=== PATIENT | female | born 1945 | race Caucasian/White ===

== ENCOUNTER → 2018-07-04 10:16 | Outpatient (CLI) | payer MEDICARE, SELFPAY ==
[2018-07-04 11:29] LABS: Alanine Aminotransferase 23 IU/L (9-52); Albumin 4.5 g/dL (3.5-5.0); Albumin Globulin Ratio 1.4 (1.0-2.8); Alkaline Phosphatase 76 U/L (38-126); Aspartate Aminotransferase 26 IU/L (14-36); BUN Creatinine Ratio 13.8 (6-22); Bilirubin Total 0.8 mg/dL (0.2-1.3); Blood Urea Nitrogen 11 mg/dL (7-17); Calcium 9.1 mg/dL (8.4-10.2); Carbon Dioxide 25 mmol/L (22-32); Chloride 99 mmol/L (98-107); Cholesterol 181 mg/dL (140-199); Estimated Glomerular Filt Rate > 60.0 mL/min (>60); Globulin 3.2 g/dL (1.7-4.1); Glucose 100 mg/dL (80-110); HDL Cholesterol 59 mg/dL (40-60); HEMOLYSIS < 15 (0-50); LDL Cholesterol Calculated 105 mg/dL (<100); Potassium 4.9 mmol/L (3.4-5.1); Sodium 137 mmol/L (137-145); Total Protein 7.7 g/dL (6.3-8.2); Triglycerides 83 mg/dL (35-150)
[2018-07-04 11:52] LABS: Thyroid Stimulating Hormone 2.98 uIU/mL (0.47-4.68)
== END ==
PROVIDERS: Family Provider Internal Medicine; PCP Internal Medicine; Visit Provider Physician Assistant
DX: E03.9 Hypothyroidism, unspecified (principal)
CPT/HCPCS: 36415; 80053; 80061; 84443

== ENCOUNTER 2018-07-04 16:49 | Emergency (ER) | payer MEDICARE, SELFPAY ==
[2018-07-04 16:59] VITALS: BP 172/123; PULSE 147; RESP 15; TEMP 36.7; O2SAT 100
[2018-07-04] MEDS: SODIUM CHLORIDE 0.9% 1,000 ML 150 ML IV (17:00)
--- NOTE | 2018-07-04 17:10 | DI.RAD.S_ITS ---
PROCEDURE: XR CHEST 1V INDICATIONS: chest pain TECHNIQUE: One view of the chest was acquired. COMPARISON: None. FINDINGS: Surgical changes and devices: None. Lungs and pleura: No pleural effusions or pneumothorax. Lungs are clear. Mediastinum: Mediastinal contours appear normal. Heart size is normal. Bones and chest wall: No suspicious bony lesions. Overlying soft tissues appear unremarkable. IMPRESSION: Normal for age, source of current symptoms is not seen. Dictated by: Elver Sahu M.D. on 07/04/2018 at 18:00 Approved by: Elver Sahu M.D. on 07/04/2018 at 18:00
[2018-07-04 17:13] VITALS: BP 162/117; PULSE 148
[2018-07-04] MEDS: dilTIAZem 5 MG/ML SDV 10 MG IV ×2 (17:13→17:30)
[2018-07-04 17:30] LABS: Add Manual Diff / Slide Review NO; Basophils Percent Auto 0.9 % (0-2); Eosinophils Percent Auto 1.8 % (2-4); Hematocrit 41.2 % (36-46); Lymphocytes Percent Auto 29.4 % (25-40); Mean Corpuscular HGB Conc 34.1 % (30-36); Mean Corpuscular Hemoglobin 33.4 PG (26-34); Mean Corpuscular Volume 97.9 fL (80-100); Neutrophils Absolute Auto 4200 /uL (3000-5900); Neutrophils Percent Auto 60.9 % (50-75); Platelet Count 252 X10^3/uL (150-400); Red Blood Cell Count 4.21 X10^6/uL (4.0-5.2); Red Cell Distribution Width 12.1 % (11.6-14.8); White Blood Cell Count 6.9 X10^3/uL (4.5-11.0)
[2018-07-04 17:32] LABS: BUN Creatinine Ratio 15.7 (6-22); Blood Urea Nitrogen 11 mg/dL (7-17); Calcium 9.1 mg/dL (8.4-10.2); Carbon Dioxide 23 mmol/L (22-32); Chloride 101 mmol/L (98-107); Creatine Kinase 31 U/L (30-135); Estimated Glomerular Filt Rate > 60.0 mL/min (>60); Glucose 97 mg/dL (80-110); HEMOLYSIS 17 (0-50); Potassium 4.1 mmol/L (3.4-5.1); Sodium 136 mmol/L (137-145)
[2018-07-04 17:34] LABS: INR 1.1 (0.9-1.3); Prothrombin Time 11.9 SECONDS (10.1-12.7)
[2018-07-04 17:36] LABS: PTT Partial Thromboplastin Tim 29 SECONDS (26.4-36.2)
[2018-07-04 17:45] LABS: Troponin I < 0.012 ng/mL (0.01-0.034)
[2018-07-04 17:46] VITALS: BP 129/107; PULSE 107; RESP 15; O2SAT 99
--- NOTE | 2018-07-04 17:56 | ED.ARRPALP ---
HPI - Arrhythmia/Palpitations General Chief Complaint: Arrhythmia/Palpitations Stated Complaint: states in AFIB, sent by her physician Time Seen by Provider: 07/04/18 17:09 Source: patient Mode of arrival: ambulatory Limitations: no limitations History of Present Illness HPI narrative: Patient is a 73-year-old female who presents with heart palpitations. She has had 5 episodes in the last week. She does have a history of paroxysmal AFib in takes 81 mg aspirin daily. She says it has been regularly controlled until last week. She has not really had any problems with it. Her Synthroid was increased about 7 weeks ago when she feels like that may be part of the problem. She actually had her TSH checked this morning was 2.98. MD complaint: rapid heart beat Related Data Home Medications Medication Instructions Recorded Confirmed levothyroxine [Synthroid] 50 mcg PO DAILY 07/04/18 Previous Rx's Medication Instructions Recorded apixaban [Eliquis] 5 mg PO BID #60 tab 07/04/18 metoprolol tartrate 25 mg PO BID #60 tab 07/04/18 Allergies Allergy/AdvReac Type Severity Reaction Status Date / Time NSAIDS AdvReac Intermediate can have Uncoded 11/17/17 11:54 asa Review of Systems Review of Systems GENERAL: Denies chills, fatigue, malaise, fever, sweats, travel HEENT: Denies sinus pain, ear pain, sore throat, difficulty swallowing, neck pain RESPIRATORY: Denies dyspnea, cough, wheezing, hemoptysis, sputum. CARDIOVASCULAR: See HPI GASTROINTESTINAL: Denies nausea, vomiting, abdominal pain, diarrhea, constipation, melena. : Denies dysuria, frequency, incontinence, hematuria, urinary retention, flank pain. MUSCULOSKELETAL: Denies weakness, joint pain, or bony pain SKIN: No rash, no erythema, no pruritus NEUROLOGIC: Denies weakness, dizziness, headache, numbness, change in speech, confusion PSYCHIATRIC: No concerning psychosocial issues. 12 point review of systems is negative except for those stated above and HPI PFSH Medical History Hypothyroid (Acute) Paroxysmal atrial fibrillation (Acute) Social History Smoking Status: Former smoker alcohol intake: never substance use type: does not use Exam Initial Vital Signs Initial Vital Signs: Vital Signs Temperature 98.0 F 07/04/18 16:59 Pulse Rate 147 H 07/04/18 16:59 Respiratory Rate 15 07/04/18 16:59 Blood Pressure 172/123 H 07/04/18 16:59 Pulse Oximetry 100 07/04/18 16:59 GENERAL: [Well-appearing, well-nourished] and in [no acute] distress. HEENT: Head atraumatic,EOMI, pupils reactive, CARDIOVASCULAR: Tachycardic irregularly irregular without murmur RESPIRATORY: Breath sounds equal bilaterally, no wheezes rales or rhonchi. ABDOMEN: Soft, nontender. Normoactive bowel sounds all 4 quadrants. No guarding or rebound. : No CVA tenderness EXTREMITIES: Normal range of motion, no clubbing or edema. Neurovascularly intact NEUROLOGICAL: Alert and oriented x4.Normal gait and speech. Cranial nerves II through XII grossly intact. SKIN: Warm, dry, no laceration, no petechiae, no rashes or lesions. Course Orders Ordered: ED Orders 07/04/18 17:05 Basic Metabolic Panel Stat Complete Blood Count AUTO DIFF Stat Magnesium Stat Partial Thromboplastin Time Stat Prothrombin Time INR Stat Troponin & CK Cardiac Panel Stat 07/04/18 17:10 XR chest 1V Stat Sodium Chloride (Normal Saline 0.9%) 1,000 mls @ 150 mls/hr IV CONT TRAVIS Last Admin: 07/04/18 17:00 Dose: 150 mls/hr Discontinued Medications Apixaban (Eliquis) 5 mg PO NOW ONE Stop: 07/04/18 19:03 Last Admin: 07/04/18 19:22 Dose: 5 mg Diltiazem HCl (Cardizem) 10 mg IV NOW ONE Stop: 07/04/18 17:11 Last Admin: 07/04/18 17:13 Dose: 10 mg Diltiazem HCl (Cardizem) 10 mg IV NOW ONE Stop: 07/04/18 17:57 Last Admin: 07/04/18 17:30 Dose: 10 mg Metoprolol Tartrate (Lopressor) 25 mg PO NOW ONE Stop: 07/04/18 17:57 Last Admin: 07/04/18 18:01 Dose: 25 mg Vital Signs - 8 hr 07/04/18 16:59 07/04/18 17:13 07/04/18 17:46 Temperature 98.0 F Pulse Rate 147 H 148 H 107 H Respiratory Rate 15 15 Blood Pressure 172/123 H 162/117 H Blood Pressure [Left Arm] 129/107 H Pulse Oximetry 100 99 07/04/18 18:28 07/04/18 19:24 Temperature Pulse Rate 75 81 Respiratory Rate 13 18 Blood Pressure Blood Pressure [Left Arm] 124/81 110/78 Pulse Oximetry 95 99 MDM - Arrhythmia/Palpitations Lab Data Attestation: I reviewed the patient's lab results. Result diagrams: 07/04/18 17:05 07/04/18 17:05 Lab Results 07/04/18 07/04/18 07/04/18 Range/Units 17:05 17:05 17:05 WBC 6.9 (4.5-11.0) X10^3/uL RBC 4.21 (4.0-5.2) X10^6/uL Hgb 14.0 (12.0-16.0) g/dL Hct 41.2 (36-46) % MCV 97.9 (80-100) fL MCH 33.4 (26-34) PG MCHC 34.1 (30-36) % RDW 12.1 (11.6-14.8) % Plt Count 252 (150-400) X10^3/uL Neut % (Auto) 60.9 (50-75) % Lymph % (Auto) 29.4 (25-40) % Menard % (Auto) 7.0 (3-14) % Eos % (Auto) 1.8 L (2-4) % Baso % (Auto) 0.9 (0-2) % Neut # (Auto) 4200 (8796-0766) /uL PT 11.9 (10.1-12.7) SECONDS INR 1.1 (0.9-1.3) APTT 29 (26.4-36.2) SECONDS Sodium 136 L (137-145) mmol/L Potassium 4.1 (3.4-5.1) mmol/L Chloride 101 (98-107) mmol/L Carbon Dioxide 23 (22-32) mmol/L BUN 11 (7-17) mg/dL Creatinine 0.70 (0.52-1.04) mg/dL Estimated GFR > 60.0 (>60) mL/min BUN/Creatinine Ratio 15.7 (6-22) Glucose 97 (80-110) mg/dL Calcium 9.1 (8.4-10.2) mg/dL Magnesium 2.0 (1.6-2.3) mg/dL Total Creatine Kinase 31 (30-135) U/L CK-MB (CK-2) TNP CK-MB (CK-2) Rel Index TNP Troponin I < 0.012 (0.01-0.034) ng/mL Imaging Data Chest x-ray: Radiologist's impression: PROCEDURE: XR CHEST 1V INDICATIONS: chest pain TECHNIQUE: One view of the chest was acquired. COMPARISON: None. FINDINGS: Surgical changes and devices: None. Lungs and pleura: No pleural effusions or pneumothorax. Lungs are clear. Mediastinum: Mediastinal contours appear normal. Heart size is normal. Bones and chest wall: No suspicious bony lesions. Overlying soft tissues appear unremarkable. IMPRESSION: Normal for age, source of current symptoms is not seen. Dictated by: Elver Sahu M.D. on 07/04/2018 at 18:00 ECG Data Attestation: I personally reviewed and interpreted this ECG as follows: Prior ECG tracings: available for review Interpretation: Atrial fibrillation rate 157 no acute ischemia MDM Narrative Medical decision making narrative: Patient continues to be in AFib better heart rate is controlled she has some minor symptoms. She has been in and out of atrial fibrillation for 1 week not a great candidate for an cardioversion. She is also not on any anticoagulation. She is agreeable to start Eliquis. We have discussed risks and benefits with both she and her . She would like her thyroid to be better controlled with a TSH closer to 4 she thinks that is the culprit of the atrial fibrillation however her brother has AFib as well. She is agreeable to treat the AFib with Eliquis and metoprolol and follow up with Cardiology. At this time her heart rate is under 120 and she overall feels better. Discharge Plan Departure Patient Disposition: Home Clinical Impression: Atrial fibrillation Instructions: Atrial Fibrillation Activity Restrictions/Additional Instructions: *You have been diagnosed with atrial fibrillation *What to do: He should be seen evaluated by a plastic boat patcher With Eliquis you do have increased risk of bleeding but a decreased risk of stroke *Continue to take medications as directed [facility] Metoprolol 25 mg twice a day Eliquis 5 mg twice a day *Follow up with your primary care provider in 2-3 days *Return to ER if you should have heart palpitations chest pain passing out, excessive bleeding, trauma or injury or any new, worsening or concerning symptoms Prescriptions: New apixaban [Eliquis] 5 mg tablet 5 mg PO BID Qty: 60 RF: 0 metoprolol tartrate 25 mg tablet 25 mg PO BID Qty: 60 RF: 0 No Action levothyroxine [Synthroid] 50 mcg tablet 50 mcg PO DAILY RF: 0 Referrals: Ann-Marie Lowry PA-C [[facility]] - Chuyita Case MD [Primary Care Provider] -
[2018-07-04] MEDS: METOPROLOL IR 25 MG TABLET PO (18:01)
[2018-07-04 18:28] VITALS: BP 124/81; PULSE 75; RESP 13; O2SAT 95
[2018-07-04] MEDS: APIXABAN 5 MG TABLET PO (19:22)
[2018-07-04 19:24] VITALS: BP 110/78; PULSE 81; RESP 18; O2SAT 99
[2018-07-04 19:45] VITALS: BP 118/82; PULSE 99; RESP 20; O2SAT 96
== END 2018-07-04 19:47 | disposition home or self-care (01) ==
PROVIDERS: Emergency Provider Emergency Medicine; Family Provider Internal Medicine; PCP Internal Medicine
DX: I48.91 Unspecified atrial fibrillation (principal); E03.9 Hypothyroidism, unspecified
CPT/HCPCS: 36415; 36591; 71045; 80048; 80053; 80061; 82550; 83735; 84443; 84484; 85025; 85610; 85730; 93005; 96361; 96374; 96376; 99283; 99285

== ENCOUNTER → 2018-07-20 14:57 | Outpatient (CLI) | payer MEDICARE, SELFPAY ==
--- NOTE | 2018-07-20 | DI.ECHO.S_ITS ---
[facility]---------+ [facility] +---------+ : : [address] [place] : : : : [id number] : : : : Phone: [phone]+ Echocardiogram Report + + :Name: LAMONT NESBITT Study Date: 07/20/2018 Height: 68 in : :[facility] Weight: 154 lb : : Gender: Female BSA: 1.8 m2 : :: 1945 Age: 73 yrs BP: 144/86 mmHg: :Reason For Study: Atrial fibrillation - paroxysmal : : Performed By: Ligia Louis : :Referring: TICO BHATIA : + + Interpretation Summary The left ventricle is normal in size, wall thickness, and systolic function without any focal wall motion abnormalities with the ejection fraction visually estimated to be 55-60%. Diastolic parameters suggest a relaxation abnormality of the left ventricle, consistent with probable normal filling pressures. The right ventricle is borderline dilated but right ventricular systolic function is normal. The right ventricular systolic pressure is estimated to be at least 28 mmHg based on an estimated right atrial pressure of 3 mm Hg. The left atrium is borderline dilated. There is mild mitral regurgitation and mild to moderate tricuspid regurgitation but no other significant valvular heart disease. The ascending aorta is mildly enlarged. The patient was in normal sinus rhythm during the exam. Procedure: A two-dimensional transthoracic echocardiogram with color flow and Doppler was performed. The study quality was technically adequate. There is no prior echocardiogram noted for this patient. The patient was in normal sinus rhythm during the exam. Left Ventricle: The left ventricle is normal in size, wall thickness, and systolic function without any focal wall motion abnormalities. There is no ventricular septal defect visualized. The ejection fraction is estimated to be 55-60%. Diastolic parameters suggest a relaxation abnormality of the left ventricle, consistent with probable normal filling pressures. Right Ventricle: The right ventricle is borderline dilated. The right ventricular systolic function is normal. Atria: The left atrium is borderline dilated. Right atrial size is normal. There is no Doppler evidence for an interatrial shunt. Mitral Valve: There is mild mitral annular calcification. The mitral valve is grossly normal. There is mild mitral regurgitation. Aortic Valve: The aortic valve is normal in structure and function. The aortic valve is trileaflet. The aortic valve opens well. No aortic regurgitation is present. Tricuspid Valve: The tricuspid valve is normal. There is mild to moderate tricuspid regurgitation. The right ventricular systolic pressure is estimated to be at least 28 mmHg based on an estimated right atrial pressure of 3 mm Hg. Pulmonic Valve: The pulmonic valve is normal in structure and function. There is a trace or physiologic amount of pulmonic regurgitation. There is no other significant valvular heart disease. Great Vessels: The aortic root is normal size. The ascending aorta is mildly enlarged. The aortic arch is normal in size. The IVC is of normal diameter and collapses greater than 50% with a sniff. This suggests a low right atrial pressure of 3 mm Hg. Pericardium/ Pleura There is no pericardial effusion. MMode/2D Measurements & Calculations LVIDd: 4.9 cm LVOT diam: 1.9 cm LVIDs: 3.3 cm Ao root diam: 3.1 cm FS: 32.1 % asc Aorta Diam: 3.5 cm EPSS: 0.36 cm Ao Arch Diam (Prox Trans): 2.8 cm IVSd: 0.74 cm LVPWd: 0.84 cm LV tobar. diameter/BSA (cm/m^2): 2.7 LV sys. diameter/BSA (cm/m^2): 1.8 LA A2 area: 19.7 cm2 RA long axis: 4.7 cm LA A4 area: 16.5 cm2 RA area: 14.6 cm2 LA length (vol): 4.5 cm RA vol: 38.6 ml LA vol: 61.1 ml RA : 21.1 ml/m2 LA vol index: 33.4 ml/m2 IVC diam: 1.7 cm RVD1 (basal): 4.1 cm RVD2 (mid): 3.0 cm TAPSE: 3.0 cm Doppler Measurements & Calculations Ao V2 max: 147.7 cm/sec LVOT Max Ihsan: 99.9 cm/sec Ao V2 mean: 87.5 cm/sec LV V1 max P.0 mmHg Ao max P.7 mmHg LV V1 VTI: 23.8 cm Ao mean P.7 mmHg CONNIE(I,D): 2.2 cm2 Ao V2 VTI: 30.6 cm CONNIE(V,D): 2.0 cm2 sev ratio: 0.78 CONNIE indexed to BSA (cm^2/m^2): 1.2 MV E max ihsan: 86.3 cm/sec TR max ihsan: 252.1 cm/sec MV A max ihsan: 100.0 cm/sec TR max P.4 mmHg MV E/A: 0.86 PA V2 max: 94.4 cm/sec Med Peak E' Ihsan: 7.4 cm/sec PA V2 mean: 62.4 cm/sec E/E' med: 11.7 PA mean P.8 mmHg Lat Peak E' Ihsan: 9.6 cm/sec PA Accel Time: 0.06 sec E/E' lat: 9.0 E/e' average: 10.4 MV dec time: 0.22 sec MV P1/2t: 65.1 msec MV P1/2t max ihsan: 86.3 cm/sec MVA(P1/2t): 3.4 cm2 Reading Physician:TOMAS
== END ==
PROVIDERS: PCP Physician Assistant; Visit Provider Physician Assistant
DX: I08.1 Rheumatic disorders of both mitral and tricuspid valves (principal); I48.0 Paroxysmal atrial fibrillation
CPT/HCPCS: 93306

== ENCOUNTER → 2018-08-22 09:49 | Outpatient (CLI) | payer MEDICARE, SELFPAY ==
[2018-08-22 11:17] LABS: Free T4, Direct Thyroxine 1.41 ng/dL (0.78-2.19)
[2018-08-22 11:31] LABS: Thyroid Stimulating Hormone 3.23 uIU/mL (0.47-4.68)
== END ==
PROVIDERS: PCP Physician Assistant; Visit Provider Physician Assistant
DX: E03.9 Hypothyroidism, unspecified (principal)
CPT/HCPCS: 36415; 84439; 84443; 84481

== ENCOUNTER → 2018-10-11 08:38 | Outpatient (CLI) | payer MEDICARE, SELFPAY ==
[2018-10-11 10:09] LABS: Free T4, Direct Thyroxine 1.17 ng/dL (0.78-2.19)
[2018-10-11 10:23] LABS: Thyroid Stimulating Hormone 3.47 uIU/mL (0.47-4.68)
== END ==
PROVIDERS: PCP Physician Assistant; Visit Provider Physician Assistant
DX: E03.9 Hypothyroidism, unspecified (principal)
CPT/HCPCS: 36415; 84439; 84443

== ENCOUNTER → 2018-12-22 07:57 | Outpatient (CLI) | payer MEDICARE, SELFPAY ==
--- NOTE | 2018-12-22 | DI.MG.S_ITS ---
BILATERAL DIGITAL SCREENING MAMMOGRAM 3D/2D WITH CAD: 12/22/2018 CLINICAL: Routine screening. Comparison is made to exams dated: 11/27/2017 mammogram, 11/17/2016 mammogram, and 09/30/2015 mammogram - [facility]. There are scattered fibroglandular elements in both breasts. Current study was also evaluated with a Computer Aided Detection (CAD) system. No significant masses, calcifications, or other findings are seen in either breast. There has been no significant interval change. IMPRESSION: NEGATIVE There is no mammographic evidence of malignancy. A 1 year screening mammogram is recommended. This exam was interpreted at Station ID: [id number]. NOTE: For mammograms, a report in lay terms will be sent to the patient. Approximately 15% of breast malignancies will not be visualized mammographically. In the management of a palpable breast mass, a negative mammogram must not discourage biopsy of a clinically suspicious lesion. Electronically Signed By: Deni potter/aurelio:12/22/2018 12:12:04 letter sent: Normal Exam ACR BI-RADS Category 1: Negative 3341F
== END ==
PROVIDERS: PCP Family Medicine; Visit Provider Family Medicine
DX: Z12.31 Encounter for screening mammogram for malignant neoplasm of breast (principal)
CPT/HCPCS: 77063; 77067

== ENCOUNTER → 2020-10-17 08:03 | Outpatient (CLI) | payer MEDICARE, SELFPAY ==
[2020-10-17] MEDS: COVID-19 VACC, Ad26(JANSSEN)/PF 0.5 ML IM (08:24)
== END ==
PROVIDERS: PCP Family Medicine; Visit Provider Internal Medicine
DX: Z23 Encounter for immunization (principal)
CPT/HCPCS: 0031A; 91303

== ENCOUNTER → 2020-11-03 09:45 | Outpatient (CLI) | payer MEDICARE, SELFPAY ==
--- NOTE | 2020-11-03 | DI.RAD.S_ITS ---
PROCEDURE: XR CHEST 2V INDICATIONS: Hyponatremia E87.1 TECHNIQUE: 2 views of the chest were acquired. COMPARISON: [facility], , CHEST 2 VIEW, 08/23/2016, 14:21. [facility], , XR CHEST 1V, 07/04/2018, 17:35. FINDINGS: Surgical changes and devices: None. Lungs and pleura: Lungs are clear, yet hyperexpanded. No pleural effusions or pneumothorax. Mediastinum: Mediastinal contours are normal. Heart size is normal. Bones and chest wall: No suspicious bony abnormalities. S-shaped scoliotic curvature is seen. Age-appropriate bony degenerative changes are seen. Soft tissues appear unremarkable. IMPRESSION: Hyperexpanded lungs, without an acute cardiopulmonary process identified. Dictated by: Jos Hodgson M.D. on 11/03/2020 at 9:15 Approved by: Jos Hodgson M.D. on 11/03/2020 at 9:16
== END ==
PROVIDERS: PCP Family Medicine; Referring Provider Family Medicine; Visit Provider Family Medicine
DX: E87.1 Hypo-osmolality and hyponatremia (principal)
CPT/HCPCS: 71046

== ENCOUNTER → 2020-12-27 08:07 | Outpatient (CLI) | payer MEDICARE, SELFPAY ==
--- NOTE | 2020-12-27 08:09 | DI.MG.S_ITS ---
BILATERAL DIGITAL SCREENING MAMMOGRAM 3D/2D WITH CAD: 12/27/2020 CLINICAL: Routine screening. Comparison is made to exams dated: 12/22/2018 mammogram, 11/27/2017 mammogram, 11/17/2016 mammogram, and 08/30/2012 mammogram - [facility]. There are scattered fibroglandular elements in both breasts. Current study was also evaluated with a Computer Aided Detection (CAD) system. No significant masses, calcifications, or other findings are seen in either breast. There has been no significant interval change. IMPRESSION: NEGATIVE There is no mammographic evidence of malignancy. A 1 year screening mammogram is recommended. This exam was interpreted at Station ID: [id number]. NOTE: For mammograms, a report in lay terms will be sent to the patient. Approximately 15% of breast malignancies will not be visualized mammographically. In the management of a palpable breast mass, a negative mammogram must not discourage biopsy of a clinically suspicious lesion. Electronically Signed By: Rex hawkins/aurelio:12/27/2020 12:59:21 letter sent: Normal Exam ACR BI-RADS Category 1: Negative [id number]
== END ==
PROVIDERS: PCP Family Medicine; Referring Provider Family Medicine; Visit Provider Family Medicine
DX: Z12.31 Encounter for screening mammogram for malignant neoplasm of breast (principal)
CPT/HCPCS: 77063; 77067

== ENCOUNTER → 2021-12-18 10:17 | Outpatient (CLI) | payer MEDICARE, SELFPAY ==
--- NOTE | 2021-12-18 10:23 | DI.RAD.S_ITS ---
PROCEDURE: XR LUMBAR SPINE 2-3V INDICATIONS: LOW BACK AND LEFT HIP AND KNEE PAIN TECHNIQUE: 3 views of the lumbar spine were acquired. COMPARISON: None. FINDINGS: Bones: 5 [id number] vertebrae are present. There is convex left thoracolumbar spine scoliosis. There is normal bony alignment. No vertebral body compression fractures. No suspicious bony lesions. Moderate L1-L2, L2-L3 and L5-S1 degenerative disc disease. Mild L3-L4 and L4-L5 degenerative disc disease. Severe L3-L4, L4-L5 and L5-S1 facet arthropathy. Moderate L1-L2 and L2-L3 facet arthropathy. Soft tissues: Overlying bowel gas pattern is normal. No suspicious soft tissue calcifications. IMPRESSION: 1. Multilevel degenerative disc disease. 2. Multilevel facet arthropathy. 3. No fracture. No acute osseous lesion. If symptoms and/or clinical suspicion for pathology persists, evaluation with MRI should be considered for further assessment. Dictated by: Tessa Meeks MD, PhD on 12/18/2021 at 16:17 Approved by: Tessa Meeks MD, PhD on 12/18/2021 at 16:18
--- NOTE | 2021-12-18 10:23 | DI.RAD.S_ITS ---
PROCEDURE: XR KNEE LT 3V INDICATIONS: LOW BACK AND LEFT HIP AND KNEE PAIN TECHNIQUE: 3 views of the knee were acquired. COMPARISON: None. FINDINGS: Bones: No acute fractures or dislocations. No suspicious bony lesions. Mild to moderate narrowing of the medial and lateral femorotibial compartment joint spaces is seen. There is also moderate narrowing of the anterior compartment joint space. Soft tissues: Small joint effusion. No suspicious soft tissue calcifications. IMPRESSION: 1. [id number] tricompartmental osteoarthrosis. 2. Small joint effusion. 3. No acute osseous abnormality. If the symptoms persist, consider cross sectional imaging such as MRI or CT for further assessment. Dictated by: Jose Daniel Pham M.D. on 12/18/2021 at 13:15 Approved by: Jose Daniel Pham M.D. on 12/18/2021 at 13:16
--- NOTE | 2021-12-18 10:23 | DI.RAD.S_ITS ---
PROCEDURE: XR HIP W PEL IF DONE LT 2V INDICATIONS: LOW BACK AND LEFT HIP AND KNEE PAIN TECHNIQUE: AP pelvis with lateral view(s) of the left hip(s). COMPARISON: None. FINDINGS: Bones: No fractures or dislocations. Pelvic ring appears intact. No suspicious bony lesions. Severe left hip osteoarthritic degenerative changes with large collar osteophytes, full-thickness joint space narrowing, subchondral sclerosis and subchondral cyst formation. Soft tissues: The visualized bowel gas pattern is normal. No suspicious soft tissue calcifications. IMPRESSION: Severe left hip osteoarthritis. Dictated by: Tessa Meeks MD, PhD on 12/18/2021 at 16:17 Approved by: Tessa Meeks MD, PhD on 12/18/2021 at 16:17
== END ==
PROVIDERS: PCP Family Medicine; Referring Provider Family Medicine; Visit Provider Family Medicine
DX: M16.12 Unilateral primary osteoarthritis, left hip (principal); M17.12 Unilateral primary osteoarthritis, left knee; M25.462 Effusion, left knee; M51.36 Other intervertebral disc degeneration, lumbar region; M51.37 Other intervertebral disc degeneration, lumbosacral region; M47.816 Spondylosis without myelopathy or radiculopathy, lumbar region; M47.817 Spondylosis without myelopathy or radiculopathy, lumbosacral region; M25.562 Pain in left knee; M25.552 Pain in left hip; M54.50 Low back pain, unspecified
CPT/HCPCS: 72100; 73502; 73562

== ENCOUNTER → 2021-12-29 07:26 | Outpatient (CLI) | payer MEDICARE, SELFPAY ==
--- NOTE | 2021-12-29 | DI.MG.S_ITS ---
BILATERAL DIGITAL SCREENING MAMMOGRAM 3D/2D WITH CAD: 12/29/2021 CLINICAL: Routine screening. Comparison is made to exams dated: 12/27/2020 mammogram, 12/22/2018 mammogram, and 11/27/2017 mammogram - [facility]. There are scattered fibroglandular elements in both breasts. Current study was also evaluated with a Computer Aided Detection (CAD) system. There is a possible developing irregular asymmetry in the right breast at 1 o'clock posterior depth. No other significant masses, calcifications, or other findings are seen in either breast. IMPRESSION: INCOMPLETE: NEEDS ADDITIONAL IMAGING EVALUATION The possible developing irregular asymmetry in the right breast is indeterminate. Additional views with possible ultrasound are recommended. This exam was interpreted at Station ID: [id number]. NOTE: For mammograms, a report in lay terms will be sent to the patient. Approximately 15% of breast malignancies will not be visualized mammographically. In the management of a palpable breast mass, a negative mammogram must not discourage biopsy of a clinically suspicious lesion. Electronically Signed By: Kacy kelsey/aurelio:12/29/2021 10:26:47 letter sent: Additional Imaging Needed ACR BI-RADS Category 0: Incomplete [id number]
== END ==
PROVIDERS: PCP Family Medicine; Referring Provider Family Medicine; Visit Provider Family Medicine
DX: Z12.31 Encounter for screening mammogram for malignant neoplasm of breast (principal)
CPT/HCPCS: 77063; 77067

== ENCOUNTER → 2022-01-29 12:04 | Outpatient (CLI) | payer MEDICARE, SELFPAY ==
--- NOTE | 2022-01-29 | DI.MG.S_ITS ---
UNILATERAL RIGHT DIGITAL DIAGNOSTIC MAMMOGRAM 3D/2D WITH ADDITIONAL VIEWS: 01/29/2022 CLINICAL: Additional evaluation requested from prior study. Comparison is made to exams dated: 12/29/2021 mammogram, 12/27/2020 mammogram, and 12/22/2018 mammogram - [facility]. There are scattered fibroglandular elements in right breast. The previously described possible developing irregular asymmetry in the right breast at 1 o'clock posterior depth is no longer seen and is consistent with fibroglandular tissue. No other significant masses or calcifications are seen in the breast. IMPRESSION: BENIGN The previously described asymmetry disperses with additional views and is consistent with summation artifact. There is no mammographic evidence of malignancy. A 1 year screening mammogram is recommended. Findings and recommendations were conveyed to the patient during today's evaluation. This exam was interpreted at Station ID: [id number]. NOTE: For mammograms, a report in lay terms will be sent to the patient. Approximately 15% of breast malignancies will not be visualized mammographically. In the management of a palpable breast mass, a negative mammogram must not discourage biopsy of a clinically suspicious lesion. Electronically Signed By: Rex Tate M.D. aty/:01/29/2022 12:36:55 letter sent: Normal Exam ACR BI-RADS Category 2: Benign Finding(s) [id number]
== END ==
PROVIDERS: PCP Family Medicine; Referring Provider Family Medicine; Visit Provider Family Medicine
DX: R92.8 Other abnormal and inconclusive findings on diagnostic imaging of breast (principal)
CPT/HCPCS: 77065; G0279

== ENCOUNTER 2022-06-19 10:30 | Outpatient (RCR) | payer MEDICARE, SELFPAY ==
--- NOTE | 2022-03-23 19:16 | PT.OIE ---
Current Diagnoses Unilateral primary osteoarthritis, left hip (03/23/22) Unilateral primary osteoarthritis, left knee (03/23/22) Past Medical History (Last Updated 07/04/18 @ 18:01 by Cha Galloway DO) Hypothyroid Paroxysmal atrial fibrillation Visit Care Team Role Provider Type Lois Bowers MD Family Provider Physician Primary Care Provider Specialty: Family Practice Address: [address] [place] [address], [facility] [place], [address] Email: [email or web address] Donny Unger MD Attending Provider Non-Staff Referring Provider Specialty: Orthopedic Surgery Address: [address] [place] [address], [place], [address] Email: Physical Therapy Initial Evaluation PT-OP-A Visit Information Start: 03/14/22 11:17 Freq: Status: Active Protocol: Document 03/23/22 13:03 LRN (Rec: 03/23/22 14:10 LRN [id number]) Out-Patient Physical Therapy Visit Information Visit Information Visit Type Initial Evaluation Visit Start Time 13:03 Visit Stop Time 13:53 Total Visit Minutes 50 Visit Number 1 Evaluation Information Evaluation Date 03/23/22 Precautions Precautions Memory loss, arthritis, hypothyroid. PT-OP-B Current Condition Start: 03/14/22 11:17 Freq: Status: Active Protocol: Document 03/23/22 13:03 LRN (Rec: 03/23/22 14:10 LRN [id number]) Current Condition History of Current Condition Onset Date Couple months ago. Current Complaints L hip and knee pain. History of Current Condition Having memory problems. Not able to use pain meds (arnica cream) due to A.Fib. In past, took a pain pill but is concerned meds can take her into A. Fib; therefore she is not taking any meds for L sided pain. Walks daily 1.5 miles but a year ago walked a lot further. Pt having to slit the L leg opening of her underwear for comfort because it feels too tight around the leg. Pt tends to sit with her R knee crossed over her L knee Prior Treatments and Tests No. X-rays by Dr. Unger indicated pain due to arthritis. Treatment Goals Patient/Caregiver Goals Pt goals: Walk downhill to mailbox without pain and tolerable pain on return (<4/10). Walk on flat and hill with tolerable pain. Walk to [facility] from home with tolerable pain. Personal Factors Other Personal Factors That May Effect Memory problems. Therapy/Recovery PT-OP-C Subjective Start: 03/14/22 11:17 Freq: Status: Active Protocol: Document 03/23/22 13:03 LRN (Rec: 03/23/22 14:10 LRN [id number]) Patient Questionnaires Lower Extremity Functional Scale LEFS Score 39 LEFS Impairment 40 to 59% Impaired (Score 32- 47) OP-PT Pain Assessment Pain Assessment Grid Paper Pain Assessment Grid Completed Yes Location L knee Pain Location Details Lateral side of knee joint Intensity 5 Scale Used Numeric (0 - 10) Description Aching Frequency Intermittent Pain Aggravating Factors Walking Pain Alleviating Factors Cold,Heat,Inactivity L hip Pain Location Details Lateral side of L hip Intensity 6 Scale Used Numeric (0 - 10) Description Aching Frequency Intermittent Pain Aggravating Factors Walking Pain Alleviating Factors Cold,Heat,Inactivity PT-OP-G Mobility & Gait Start: 03/14/22 11:17 Freq: Status: Active Protocol: Document 03/23/22 13:03 LRN (Rec: 03/23/22 14:10 LRN [id number]) OP Gait Assessment Gait Gait Assistance Required: Independent Able to Maintain Weight Bearing Status Yes During Gait Assistive Devices Assistive Device Straight Cane Gait Deviations General Gait Pattern Decreased Stride Length,Flexed Trunk,Lateral Trunk Lean, Narrow Based Gait Factors Limiting Gait Function Factors Limiting Gait Function Decreased Activity Tolerance, Decreased Strength,Pain,Poor Balance Comments Gait Comments Straight cane is actually a straight walking stick on the R side. Pt leans to R with gait. With cane the steps lengths are short but equal. Without cane pt take longer step with LLE. PT-OP-H Neuro Start: 03/14/22 11:17 Freq: Status: Active Protocol: Document 03/23/22 13:03 LRN (Rec: 03/23/22 14:10 LRN [id number]) Sensation Evaluation Gross Sensation Gross Sensation WNL Deep Tendon Reflex & Clonus Assessment Deep Tendon Reflex Bilateral Patellar Deep Tendon Reflex 1+ Diminished PT-OP-J Posture/Palpation/Skin Start: 03/14/22 11:17 Freq: Status: Active Protocol: Document 03/23/22 13:03 LRN (Rec: 03/23/22 14:10 LRN [id number]) Posture Evaluation Position Standing Head/C-Spine Posture Forward Head Shoulder Posture (L) Elevated Knee Posture (L) Excess Flexion Comments Posture Comments Trunk shift to R. R shoulder is low, sacrum is R sidebent and spine appears to be in mild C-curve with apex on the left. L knee slightly bent. Pt feels her L leg is long. Palpation Assessment Location L knee Palpation Location No area of tenderness in sitting. L hip Palpation Location ASIS's Palpation Details L ASIS is more anterior in supine. Supine>Longsit: L leg becomes slightly longer. PSIS is posterior. PT-OP-K Range of Motion Start: 03/14/22 11:17 Freq: Status: Active Protocol: Document 03/23/22 13:03 LRN (Rec: 03/23/22 14:10 LRN [id number]) Hip Goniometric Range of Motion Hip Right Passive Testing Position Prone Internal Rotation 45 External Rotation 30 Left Passive Testing Position Prone Internal Rotation 10 External Rotation 0 PT-OP-M Strength Start: 03/14/22 11:17 Freq: Status: Active Protocol: Document 03/23/22 13:03 LRN (Rec: 03/23/22 14:10 LRN [id number]) Hip Strength Hip Manual Muscle Testing Right Flexion (L2) 3 Fair Extension (S1) 3 Fair Left Flexion (L2) 2 Poor Extension (S1) 1 Trace Knee Strength Knee Manual Muscle Testing Right Comments Generally 5/5 Left Comments Generally 5/5 Ankle/Foot Strength Ankle and Foot Manual Muscle Testing Right Comments Generally 5/5 Left Comments Generally 5/5 Toe Strength Toe Manual Muscle Testing Right Great Toe Extension 5 Normal Left Great Toe Extension 5 Normal PT-OP-Q Treatments Start: 03/14/22 11:17 Freq: Status: Active Protocol: Document 03/23/22 13:03 LRN (Rec: 03/23/22 14:10 LRN [id number]) Therapeutic Exercises Sitting Exercises Hip IR stretch Sitting Exercise Name Knees together, foot out laterally with verbal instructions given for HEP Side left Fig 4 stretch Sitting Exercise Name Fig 4 stretch positioning with verbal instructions given for HEP. Side left Self-Care/Home Management Treatment Education Patient Education Home Exercise Program Other Education Discussed results of evaluation, goals, and plan of care (POC). Pt agreeable to goals and POC. Activities Self-Care/Home Management Activities HEP: I/S pt in L hip stretches (see therapeutic exercise section): ER ( sitting fig 4) and IR (L foot out laterally with knees together) stretch. PT-OP-T Assessment and Plan Start: 03/14/22 11:17 Freq: Status: Active Protocol: Document 03/23/22 13:03 LRN (Rec: 03/23/22 14:10 LRN [id number]) Physical Therapy Assessment Rehab Potential Rehabilitation Potential Good Evaluation Complexity Number of Personal Factors/Comorbidities 1-2 Number of Body Systems Impaired 4 or More Clinical Presentation at Evaluation Evolving Impairments Impairments Activity Tolerance,Gait,Pain, Posture,ROM,Strength Goals Three Impairment Decreased ability to walk due to L hip/knee pain. Impairment Pain in L hip/knee walking downhill to mailbox and back with pain 4/10. Pt not able to walk to [facility] from home with tolerable pain. Short Term Goal (STG) Pt will be able to walk downhill to mailbox without pain and tolerable pain on return (<4/10). STG Duration 05/09/22 Construction Project Manager Goal (LTG) Pt will be able to tolerate walking from home to the [facility] with tolerable pain (<4 /10) LTG Duration 06/21/22 Two Impairment Decreased function. Impairment LEFS score of 39, (40-59% impaired, score 32-47). Pt not able to walk on level and inclines/declines combined with tolerable pain. Short Term Goal (STG) Pt will be able to walk on level and inclines with tolerable pain. STG Duration 05/09/22 Construction Project Manager Goal (LTG) Improve function per LEFS score > 47 (20-39% impaired, score 48-62) LTG Duration 06/21/22 One Impairment Lacks appropriate self care HEP. Short Term Goal (STG) Pt will be educated in proper nighttime and daytime (sit, stand) posture. STG Duration 03/30/22 Construction Project Manager Goal (LTG) Pt will be independent with a self care HEP. LTG Duration 06/21/22 Assessment Summary Assessment Pt presents with very limited L hip mobility and mild sacral L rotation. L hip with no hip ER and very limited IR mobility. She demonstrates postural deviations with a notable R trunk shift. She demonstrates a gait dysfunction due to pain in L hip/knee. She has a slight leg length difference (L longer) when moving from supine to longsit (?anter rot L innominate) & L ASIS is anterior in supine; therefore she may have pelvic alignment dysfunction. The pt will benefit from skilled physical therapy to decrease pain, improve posture and gait. Physical Therapy Plan Frequency and Duration Frequency of Treatment 2x/Week Plan of Care Start Date 03/23/22 Plan of Care End Date 06/21/22 Therapeutic Interventions Therapeutic Interventions Aquatic Therapy,Gait Training, Home Exercise Program,Joint Mobilizations,Manual Therapy, Neuromuscular Re-education, Patient/Caregiver Education, Self-Care/Home Management,Soft Tissue Mobilization, Therapeutic Activities, Therapeutic Exercises Modalities Cold Pack/Ice Massage,Electric Stimulation,Hot Packs Next Visit Focus/Plan Next Note Type Treatment Note Next Visit Plan Modalities of MH/Ice only due to Breast CA history. HEP: L Hip ER/IR sitting & supine stretches. Assess for L/S neural tension and achilles DTR, hip/knee ROM, hipo strength. JMT to L hip/knee. Ex strengthening of L LE and core/pelvic stabilization.
--- NOTE | 2022-03-23 19:16 | PT.OPPOC ---
Physical, Occupational & Speech Therapy At [facility] Current Diagnoses Unilateral primary osteoarthritis, left hip (03/23/22) Unilateral primary osteoarthritis, left knee (03/23/22) Visit Care Team Role Provider Type Lois Bowers MD Family Provider Physician Primary Care Provider Specialty: Family Practice Address: [address] [place] [address], [facility] [place], [address] Email: [email or web address] Donny Unger MD Attending Provider Non-Staff Referring Provider Specialty: Orthopedic Surgery Address: [address] [place] [address], [place], [address] Email: Plan Of Care PT-OP-T Assessment and Plan Start: 03/14/22 11:17 Freq: Status: Active Protocol: Document 03/23/22 13:03 LRN (Rec: 03/23/22 14:10 LRN [id number]) Physical Therapy Assessment Rehab Potential Rehabilitation Potential Good Evaluation Complexity Number of Personal Factors/Comorbidities 1-2 Number of Body Systems Impaired 4 or More Clinical Presentation at Evaluation Evolving Impairments Impairments Activity Tolerance,Gait,Pain, Posture,ROM,Strength Goals Three Impairment Decreased ability to walk due to L hip/knee pain. Impairment Pain in L hip/knee walking downhill to mailbox and back with pain 4/10. Pt not able to walk to [facility] from home with tolerable pain. Short Term Goal (STG) Pt will be able to walk downhill to mailbox without pain and tolerable pain on return (<4/10). STG Duration 05/09/22 [facility] Goal (LTG) Pt will be able to tolerate walking from home to the [facility] with tolerable pain (<4 /10) LTG Duration 06/21/22 Two Impairment Decreased function. Impairment LEFS score of 39, (40-59% impaired, score 32-47). Pt not able to walk on level and inclines/declines combined with tolerable pain. Short Term Goal (STG) Pt will be able to walk on level and inclines with tolerable pain. STG Duration 05/09/22 Services Delivery Driver Goal (LTG) Improve function per LEFS score > 47 (20-39% impaired, score 48-62) LTG Duration 06/21/22 One Impairment Lacks appropriate self care HEP. Short Term Goal (STG) Pt will be educated in proper nighttime and daytime (sit, stand) posture. STG Duration 03/30/22 Services Delivery Driver Goal (LTG) Pt will be independent with a self care HEP. LTG Duration 06/21/22 Assessment Summary Assessment Pt presents with very limited L hip mobility and mild sacral L rotation. L hip with no hip ER and very limited IR mobility. She demonstrates postural deviations with a notable R trunk shift. She demonstrates a gait dysfunction due to pain in L hip/knee. She has a slight leg length difference (L longer) when moving from supine to longsit (?anter rot L innominate) & L ASIS is anterior in supine; therefore she may have pelvic alignment dysfunction. The pt will benefit from skilled physical therapy to decrease pain, improve posture and gait. Physical Therapy Plan Frequency and Duration Frequency of Treatment 2x/Week Plan of Care Start Date 03/23/22 Plan of Care End Date 06/21/22 Therapeutic Interventions Therapeutic Interventions Aquatic Therapy,Gait Training, Home Exercise Program,Joint Mobilizations,Manual Therapy, Neuromuscular Re-education, Patient/Caregiver Education, Self-Care/Home Management,Soft Tissue Mobilization, Therapeutic Activities, Therapeutic Exercises Modalities Cold Pack/Ice Massage,Electric Stimulation,Hot Packs Next Visit Focus/Plan Next Note Type Treatment Note Next Visit Plan Modalities of MH/Ice only due to Breast CA history. HEP: L Hip ER/IR sitting & supine stretches. Assess for L/S neural tension and achilles DTR, hip/knee ROM, hipo strength. JMT to L hip/knee. Ex strengthening of L LE and core/pelvic stabilization. Plan of Care Dates Plan of Care Start Date 03/23/22 Plan of Care End Date 06/21/22 Electronically Signed by: Magali Arellano, PT 03/23/22 3384 If you are in agreement with this Plan of Care, please return a signed and dated copy. I have reviewed this Plan of Care and certify that the skilled therapy services above are required to meet the patient?s needs. Physician Signature Date Printed Name and Credentials Clinical Instructor Signature Printed Name and Credentials
--- NOTE | 2022-03-31 11:38 | PT.OTN ---
Current Diagnoses Unilateral primary osteoarthritis, left hip (03/31/22) Unilateral primary osteoarthritis, left knee (03/31/22) Physical Therapy Treatment Note PT-OP-A Visit Information Start: 03/14/22 11:17 Freq: Status: Active Protocol: Document 03/31/22 10:20 LRN (Rec: 03/31/22 11:35 LRN [id number]) Out-Patient Physical Therapy Visit Information Visit Information Visit Type Treatment Note Visit Start Time 10:30 Visit Stop Time 11:17 Total Visit Minutes 47 Visit Number 2 Evaluation Information Evaluation Date 03/23/22 Precautions Precautions Memory loss, arthritis, hypothyroid. PT-OP-B Current Condition Start: 03/14/22 11:17 Freq: Status: Active Protocol: Document 03/23/22 13:03 LRN (Rec: 03/23/22 14:10 LRN [id number]) Current Condition History of Current Condition Onset Date Couple months ago. Current Complaints L hip and knee pain. History of Current Condition Having memory problems. Not able to use pain meds (arnica cream) due to A.Fib. In past, took a pain pill but is concerned meds can take her into A. Fib; therefore she is not taking any meds for L sided pain. Walks daily 1.5 miles but a year ago walked a lot further. Pt having to slit the L leg opening of her underwear for comfort because it feels too tight around the leg. Pt tends to sit with her R knee crossed over her L knee Prior Treatments and Tests No. X-rays by Dr. Unger indicated pain due to arthritis. Treatment Goals Patient/Caregiver Goals Pt goals: Walk downhill to mailbox without pain and tolerable pain on return (<4/10). Walk on flat and hill with tolerable pain. Walk to [facility] from home with tolerable pain. Personal Factors Other Personal Factors That May Effect Memory problems. Therapy/Recovery PT-OP-C Subjective Start: 03/14/22 11:17 Freq: Status: Active Protocol: Document 03/31/22 10:20 LRN (Rec: 03/31/22 11:35 LRN [id number]) OP-PT Subjective Patient Comments Patient Comments States she went to an area of dryer climate and she had less pain in general. PT-OP-G Mobility & Gait Start: 03/14/22 11:17 Freq: Status: Active Protocol: Document 03/23/22 13:03 LRN (Rec: 03/23/22 14:10 LRN [id number]) OP Gait Assessment Gait Gait Assistance Required: Independent Able to Maintain Weight Bearing Status Yes During Gait Assistive Devices Assistive Device Straight Cane Gait Deviations General Gait Pattern Decreased Stride Length,Flexed Trunk,Lateral Trunk Lean, Narrow Based Gait Factors Limiting Gait Function Factors Limiting Gait Function Decreased Activity Tolerance, Decreased Strength,Pain,Poor Balance Comments Gait Comments Straight cane is actually a straight walking stick on the R side. Pt leans to R with gait. With cane the steps lengths are short but equal. Without cane pt take longer step with LLE. PT-OP-H Neuro Start: 03/14/22 11:17 Freq: Status: Active Protocol: Document 03/31/22 10:20 LRN (Rec: 03/31/22 11:35 LRN [id number]) Deep Tendon Reflex & Clonus Assessment Deep Tendon Reflex Right Achilles Deep Tendon Reflex 0 Absent Left Achilles Deep Tendon Reflex 0 Absent PT-OP-J Posture/Palpation/Skin Start: 03/14/22 11:17 Freq: Status: Active Protocol: Document 03/23/22 13:03 LRN (Rec: 03/23/22 14:10 LRN [id number]) Posture Evaluation Position Standing Head/C-Spine Posture Forward Head Shoulder Posture (L) Elevated Knee Posture (L) Excess Flexion Comments Posture Comments Trunk shift to R. R shoulder is low, sacrum is R sidebent and spine appears to be in mild C-curve with apex on the left. L knee slightly bent. Pt feels her L leg is long. Palpation Assessment Location L knee Palpation Location No area of tenderness in sitting. L hip Palpation Location ASIS's Palpation Details L ASIS is more anterior in supine. Supine>Longsit: L leg becomes slightly longer. PSIS is posterior. PT-OP-K Range of Motion Start: 03/14/22 11:17 Freq: Status: Active Protocol: Document 03/31/22 10:20 LRN (Rec: 03/31/22 11:35 LRN [id number]) Hip Goniometric Range of Motion Hip Right Passive Testing Position Supine Straight Leg Raise 65 Comments Initial Eval Prone hip IR : 45 deg's, ER 30 deg's. Left Passive Testing Position Supine Straight Leg Raise 60 Comments Initial Eval Prone hip IR : 10 deg's, ER 0 deg's. Knee Goniometric Range of Motion Knee Right Knee ROM WFL Yes Left Knee ROM WFL Yes PT-OP-M Strength Start: 03/14/22 11:17 Freq: Status: Active Protocol: Document 03/23/22 13:03 LRN (Rec: 03/23/22 14:10 LRN [id number]) Hip Strength Hip Manual Muscle Testing Right Flexion (L2) 3 Fair Extension (S1) 3 Fair Left Flexion (L2) 2 Poor Extension (S1) 1 Trace Knee Strength Knee Manual Muscle Testing Right Comments Generally 5/5 Left Comments Generally 5/5 Ankle/Foot Strength Ankle and Foot Manual Muscle Testing Right Comments Generally 5/5 Left Comments Generally 5/5 Toe Strength Toe Manual Muscle Testing Right Great Toe Extension 5 Normal Left Great Toe Extension 5 Normal PT-OP-Q Treatments Start: 03/14/22 11:17 Freq: Status: Active Protocol: Document 03/31/22 10:20 LRN (Rec: 03/31/22 11:35 LRN [id number]) Therapeutic Exercises Supine Exercises Lateral Hip stretch Supine Exercise Name Lateral Hip stretch Side bilateral Reps/Minutes 1x each Comments Much extra time for teaching and finding max tolerated stretch Hip IR stretching Supine Exercise Name IT band type stretch & Piriformis (knee to opp shldr) Side bilateral Reps/Minutes 1x each Comments Much extra time for teaching and finding max tolerated stretch Hip ER stretching Supine Exercise Name Fig 4 Side bilateral Comments Much extra time for teaching and finding max tolerated stretch LE neural/hamstring stretch Supine Exercise Name LE neural/hamstring stretch Side bilateral Reps/Minutes 5' Comments Much extra time for teaching and finding max tolerated stretch Self-Care/Home Management Treatment Education Patient Education Home Exercise Program Activities Self-Care/Home Management Activities Issued & reviewed HEP: Hamstring/LE neural stretch; Hip ER/IR stretch: fig 4, Piriformis with knee to opp shldr, lateral hip stretch and IT band stretch for IR. PT-OP-T Assessment and Plan Start: 03/14/22 11:17 Freq: Status: Active Protocol: Document 03/31/22 10:20 LRN (Rec: 03/31/22 11:35 LRN [id number]) Physical Therapy Assessment Goals Three Impairment Decreased ability to walk due to L hip/knee pain. Impairment Pain in L hip/knee walking downhill to mailbox and back with pain 4/10. Pt not able to walk to [facility] from home with tolerable pain. Short Term Goal (STG) Pt will be able to walk downhill to mailbox without pain and tolerable pain on return (<4/10). STG Duration 05/09/22 Assisted Goal (LTG) Pt will be able to tolerate walking from home to the [facility] with tolerable pain (<4 /10) LTG Duration 06/21/22 Two Impairment Decreased function. Impairment LEFS score of 39, (40-59% impaired, score 32-47). Pt not able to walk on level and inclines/declines combined with tolerable pain. Short Term Goal (STG) Pt will be able to walk on level and inclines with tolerable pain. STG Duration 05/09/22 Assisted Goal (LTG) Improve function per LEFS score > 47 (20-39% impaired, score 48-62) LTG Duration 06/21/22 One Impairment Lacks appropriate self care HEP. Short Term Goal (STG) Pt will be educated in proper nighttime and daytime (sit, stand) posture. STG Duration 03/30/22 Assisted Goal (LTG) Pt will be independent with a self care HEP. LTG Duration 06/21/22 Assessment Summary Assessment DTR's diminished patellar, no reflex achillies bilaterally; therefore normal for patient. LE neural tension: + neural tension with L PSLR at 60 deg' s, R PSLR at 65 deg's. Knee AROM is WFL bilaterally. Pt required extra time for training and performing of exercises due to much repeated information regarding stretch , time needed to determine max stretch, and slowness with communication due to pt's decreased hearing needs. Pt tends to force stretches causing pain, but with training and communication appears to have better control of stretches and will hopefully not be aggressive causing pain. Physical Therapy Plan Frequency and Duration Frequency of Treatment 2x/Week Plan of Care Start Date 03/23/22 Plan of Care End Date 06/21/22 Next Visit Focus/Plan Next Note Type Treatment Note Next Visit Plan Modalities of MH/Ice only due to Breast CA history. EDUCATE : proper nighttime and daytime (sit, stand) posture. HEP: L Hip ER/IR sitting ex's. Improve Hip PROM, check & improve hip strength. JMT to L hip/knee. EXER strengthening of L LE and core /pelvic stabilization.
--- NOTE | 2022-04-03 12:27 | PT.OTN ---
Current Diagnoses Unilateral primary osteoarthritis, left hip (04/03/22) Unilateral primary osteoarthritis, left knee (04/03/22) Physical Therapy Treatment Note PT-OP-A Visit Information Start: 03/14/22 11:17 Freq: Status: Active Protocol: Document 04/03/22 10:36 LRN (Rec: 04/03/22 12:26 LRN [id number]) Out-Patient Physical Therapy Visit Information Visit Information Visit Type Treatment Note Visit Start Time 10:36 Visit Stop Time 11:24 Total Visit Minutes 48 Visit Number 3 Evaluation Information Evaluation Date 03/23/22 Precautions Precautions Memory loss, arthritis, hypothyroid. PT-OP-B Current Condition Start: 03/14/22 11:17 Freq: Status: Active Protocol: Document 03/23/22 13:03 LRN (Rec: 03/23/22 14:10 LRN [id number]) Current Condition History of Current Condition Onset Date Couple months ago. Current Complaints L hip and knee pain. History of Current Condition Having memory problems. Not able to use pain meds (arnica cream) due to A.Fib. In past, took a pain pill but is concerned meds can take her into A. Fib; therefore she is not taking any meds for L sided pain. Walks daily 1.5 miles but a year ago walked a lot further. Pt having to slit the L leg opening of her underwear for comfort because it feels too tight around the leg. Pt tends to sit with her R knee crossed over her L knee Prior Treatments and Tests No. X-rays by Dr. Unger indicated pain due to arthritis. Treatment Goals Patient/Caregiver Goals Pt goals: Walk downhill to mailbox without pain and tolerable pain on return (<4/10). Walk on flat and hill with tolerable pain. Walk to [facility] from home with tolerable pain. Personal Factors Other Personal Factors That May Effect Memory problems. Therapy/Recovery PT-OP-C Subjective Start: 03/14/22 11:17 Freq: Status: Active Protocol: Document 04/03/22 10:36 LRN (Rec: 04/03/22 12:26 LRN [id number]) OP-PT Subjective Patient Comments Patient Comments States she was sore after exercises. Doing her ex's at home on the floor on an ex mat . PT-OP-G Mobility & Gait Start: 03/14/22 11:17 Freq: Status: Active Protocol: Document 03/23/22 13:03 LRN (Rec: 03/23/22 14:10 LRN [id number]) OP Gait Assessment Gait Gait Assistance Required: Independent Able to Maintain Weight Bearing Status Yes During Gait Assistive Devices Assistive Device Straight Cane Gait Deviations General Gait Pattern Decreased Stride Length,Flexed Trunk,Lateral Trunk Lean, Narrow Based Gait Factors Limiting Gait Function Factors Limiting Gait Function Decreased Activity Tolerance, Decreased Strength,Pain,Poor Balance Comments Gait Comments Straight cane is actually a straight walking stick on the R side. Pt leans to R with gait. With cane the steps lengths are short but equal. Without cane pt take longer step with LLE. PT-OP-H Neuro Start: 03/14/22 11:17 Freq: Status: Active Protocol: Document 03/31/22 10:20 LRN (Rec: 03/31/22 11:35 LRN [id number]) Deep Tendon Reflex & Clonus Assessment Deep Tendon Reflex Right Achilles Deep Tendon Reflex 0 Absent Left Achilles Deep Tendon Reflex 0 Absent PT-OP-J Posture/Palpation/Skin Start: 03/14/22 11:17 Freq: Status: Active Protocol: Document 03/23/22 13:03 LRN (Rec: 03/23/22 14:10 LRN [id number]) Posture Evaluation Position Standing Head/C-Spine Posture Forward Head Shoulder Posture (L) Elevated Knee Posture (L) Excess Flexion Comments Posture Comments Trunk shift to R. R shoulder is low, sacrum is R sidebent and spine appears to be in mild C-curve with apex on the left. L knee slightly bent. Pt feels her L leg is long. Palpation Assessment Location L knee Palpation Location No area of tenderness in sitting. L hip Palpation Location ASIS's Palpation Details L ASIS is more anterior in supine. Supine>Longsit: L leg becomes slightly longer. PSIS is posterior. PT-OP-K Range of Motion Start: 03/14/22 11:17 Freq: Status: Active Protocol: Document 03/31/22 10:20 LRN (Rec: 03/31/22 11:35 LRN [id number]) Hip Goniometric Range of Motion Hip Right Passive Testing Position Supine Straight Leg Raise 65 Comments Initial Eval Prone hip IR : 45 deg's, ER 30 deg's. Left Passive Testing Position Supine Straight Leg Raise 60 Comments Initial Eval Prone hip IR : 10 deg's, ER 0 deg's. Knee Goniometric Range of Motion Knee Right Knee ROM WFL Yes Left Knee ROM WFL Yes PT-OP-M Strength Start: 03/14/22 11:17 Freq: Status: Active Protocol: Document 03/23/22 13:03 LRN (Rec: 03/23/22 14:10 LRN [id number]) Hip Strength Hip Manual Muscle Testing Right Flexion (L2) 3 Fair Extension (S1) 3 Fair Left Flexion (L2) 2 Poor Extension (S1) 1 Trace Knee Strength Knee Manual Muscle Testing Right Comments Generally 5/5 Left Comments Generally 5/5 Ankle/Foot Strength Ankle and Foot Manual Muscle Testing Right Comments Generally 5/5 Left Comments Generally 5/5 Toe Strength Toe Manual Muscle Testing Right Great Toe Extension 5 Normal Left Great Toe Extension 5 Normal PT-OP-Q Treatments Start: 03/14/22 11:17 Freq: Status: Active Protocol: Document 04/03/22 10:36 LRN (Rec: 04/03/22 12:26 LRN [id number]) Therapeutic Exercises Supine Exercises SLR Supine Exercise Name SLR - foot at 12 and 30 deg's ER'd. Side bilateral Reps/Minutes 10x each Comments Cuing for foot position changes. Piriformis stretch Supine Exercise Name Knee to opp shoulder Side bilateral Equipment Used GB to assist w/stretch and return to start position. Reps/Minutes 1x each Comments Much extra time for teaching and finding max tolerated stretch Lateral Hip stretch Supine Exercise Name Lateral Hip stretch Side bilateral Equipment Used GB to assist w/stretch Reps/Minutes 1x each Comments Extra time for teaching and finding max tolerated stretch Hip IR stretching Supine Exercise Name IT band type stretch-crossed legs w/top leg pushing bottom leg down Side bilateral Equipment Used GB to assist w/stretch and return to start position. Reps/Minutes 1x each Comments Much extra time for teaching and finding max tolerated stretch Hip ER stretching Supine Exercise Name Fig 4 Side bilateral Reps/Minutes 1x each Comments Extra time for teaching and finding max tolerated stretch LE neural/hamstring stretch Supine Exercise Name LE neural/hamstring stretch Side bilateral Reps/Minutes 5' Comments Extra time for teaching and finding max tolerated stretch Self-Care/Home Management Treatment Education Patient Education Posture Other Education Pt educated in proper nighttime and daytime (sit, stand) posture with phys cuing and discussion in sit > reclined sit and for postural correction in standing. Pilows used to nighttime positioning. Activities Self-Care/Home Management Activities Re-issued HEP: Fig 4 stretch w/added active stretch. Issued & reviewed HEP: SLR ( foot 12O'Clock and 30 deg's ER 'd) and step ups for VMO strengthening. PT-OP-T Assessment and Plan Start: 03/14/22 11:17 Freq: Status: Active Protocol: Document 04/03/22 10:36 LRN (Rec: 04/03/22 12:26 LRN [id number]) Physical Therapy Assessment Goals Three Impairment Decreased ability to walk due to L hip/knee pain. Impairment Pain in L hip/knee walking downhill to mailbox and back with pain 4/10. Pt not able to walk to [facility] with tolerable pain. Short Term Goal (STG) Pt will be able to walk downhill to mailbox without pain and tolerable pain on return (<4/10). STG Duration 05/09/22 Photo Optics Technician Goal (LTG) Pt will be able to tolerate walking from home to the [facility] with tolerable pain (<4 /10) LTG Duration 06/21/22 Two Impairment Decreased function. Impairment LEFS score of 39, (40-59% impaired, score 32-47). Pt not able to walk on level and inclines/declines combined with tolerable pain. Short Term Goal (STG) Pt will be able to walk on level and inclines with tolerable pain. STG Duration 05/09/22 Nursing Home Goal (LTG) Improve function per LEFS score > 47 (20-39% impaired, score 48-62) LTG Duration 06/21/22 One Impairment Lacks appropriate self care HEP. Short Term Goal (STG) Pt will be educated in proper nighttime and daytime (sit, stand) posture. STG Duration 03/30/22 (04/03/22: MET GOAL) Photo Optics Technician Goal (LTG) Pt will be independent with a self care HEP. 04/03/22: HEP reviewed: LE neural/hamstring stretch, Fig 4, Piriformis, Internal roll of hip for stretch; VMO strengthening of SLR & step ups. LTG Duration 06/21/22 (04/03/22: Progressed). Progress Towards Goals Progress Comments Progressed HEP to add VMO strengthening. Assessment Summary Assessment Pt was receptive to posture training. Pt has gained some tolerance to stretching of L hip. She can now cross her L ankle of the R knee. Physical Therapy Plan Frequency and Duration Frequency of Treatment 2x/Week Plan of Care Start Date 03/23/22 Plan of Care End Date 06/21/22 Next Visit Focus/Plan Next Note Type Treatment Note Next Visit Plan Modalities of MH/Ice only due to Breast CA history. HEP: L Hip ER/IR sitting ex's. Improve Hip PROM, check & improve hip strength. JMT to L hip/knee. EXER strengthening of L LE and core /pelvic stabilization.
--- NOTE | 2022-04-07 12:28 | PT.OTN ---
Current Diagnoses Unilateral primary osteoarthritis, left hip (04/07/22) Unilateral primary osteoarthritis, left knee (04/07/22) Physical Therapy Treatment Note PT-OP-A Visit Information Start: 03/14/22 11:17 Freq: Status: Active Protocol: Document 04/07/22 10:36 LRN (Rec: 04/07/22 11:20 LRN [id number]) Out-Patient Physical Therapy Visit Information Visit Information Visit Type Treatment Note Visit Start Time 10:36 Visit Stop Time 11:20 Total Visit Minutes 44 Visit Number 4 Precautions Precautions Breast CA history. Memory loss, arthritis, hypothyroid. PT-OP-B Current Condition Start: 03/14/22 11:17 Freq: Status: Active Protocol: Document 03/23/22 13:03 LRN (Rec: 03/23/22 14:10 LRN [id number]) Current Condition History of Current Condition Onset Date Couple months ago. Current Complaints L hip and knee pain. History of Current Condition Having memory problems. Not able to use pain meds (arnica cream) due to A.Fib. In past, took a pain pill but is concerned meds can take her into A. Fib; therefore she is not taking any meds for L sided pain. Walks daily 1.5 miles but a year ago walked a lot further. Pt having to slit the L leg opening of her underwear for comfort because it feels too tight around the leg. Pt tends to sit with her R knee crossed over her L knee Prior Treatments and Tests No. X-rays by Dr. Unger indicated pain due to arthritis. Treatment Goals Patient/Caregiver Goals Pt goals: Walk downhill to mailbox without pain and tolerable pain on return (<4/10). Walk on flat and hill with tolerable pain. Walk to [facility] from home with tolerable pain. Personal Factors Other Personal Factors That May Effect Memory problems. Therapy/Recovery PT-OP-C Subjective Start: 03/14/22 11:17 Freq: Status: Active Protocol: Document 04/07/22 10:36 LRN (Rec: 04/07/22 11:20 LRN [id number]) OP-PT Subjective Patient Comments Patient Comments Walked 1.5 miles this morning. States her L hip/knee hurt more due to her trying to do the ex's on the floor. States she will do the ex's on her bed from now on and expects her pain to lessen. PT-OP-G Mobility & Gait Start: 03/14/22 11:17 Freq: Status: Active Protocol: Document 03/23/22 13:03 LRN (Rec: 03/23/22 14:10 LRN [id number]) OP Gait Assessment Gait Gait Assistance Required: Independent Able to Maintain Weight Bearing Status Yes During Gait Assistive Devices Assistive Device Straight Cane Gait Deviations General Gait Pattern Decreased Stride Length,Flexed Trunk,Lateral Trunk Lean, Narrow Based Gait Factors Limiting Gait Function Factors Limiting Gait Function Decreased Activity Tolerance, Decreased Strength,Pain,Poor Balance Comments Gait Comments Straight cane is actually a straight walking stick on the R side. Pt leans to R with gait. With cane the steps lengths are short but equal. Without cane pt take longer step with LLE. PT-OP-H Neuro Start: 03/14/22 11:17 Freq: Status: Active Protocol: Document 03/31/22 10:20 LRN (Rec: 03/31/22 11:35 LRN [id number]) Deep Tendon Reflex & Clonus Assessment Deep Tendon Reflex Right Achilles Deep Tendon Reflex 0 Absent Left Achilles Deep Tendon Reflex 0 Absent PT-OP-J Posture/Palpation/Skin Start: 03/14/22 11:17 Freq: Status: Active Protocol: Document 03/23/22 13:03 LRN (Rec: 03/23/22 14:10 LRN [id number]) Posture Evaluation Position Standing Head/C-Spine Posture Forward Head Shoulder Posture (L) Elevated Knee Posture (L) Excess Flexion Comments Posture Comments Trunk shift to R. R shoulder is low, sacrum is R sidebent and spine appears to be in mild C-curve with apex on the left. L knee slightly bent. Pt feels her L leg is long. Palpation Assessment Location L knee Palpation Location No area of tenderness in sitting. L hip Palpation Location ASIS's Palpation Details L ASIS is more anterior in supine. Supine>Longsit: L leg becomes slightly longer. PSIS is posterior. PT-OP-K Range of Motion Start: 03/14/22 11:17 Freq: Status: Active Protocol: Document 03/31/22 10:20 LRN (Rec: 03/31/22 11:35 LRN [id number]) Hip Goniometric Range of Motion Hip Right Passive Testing Position Supine Straight Leg Raise 65 Comments Initial Eval Prone hip IR : 45 deg's, ER 30 deg's. Left Passive Testing Position Supine Straight Leg Raise 60 Comments Initial Eval Prone hip IR : 10 deg's, ER 0 deg's. Knee Goniometric Range of Motion Knee Right Knee ROM WFL Yes Left Knee ROM WFL Yes PT-OP-M Strength Start: 03/14/22 11:17 Freq: Status: Active Protocol: Document 03/23/22 13:03 LRN (Rec: 03/23/22 14:10 LRN [id number]) Hip Strength Hip Manual Muscle Testing Right Flexion (L2) 3 Fair Extension (S1) 3 Fair Left Flexion (L2) 2 Poor Extension (S1) 1 Trace Knee Strength Knee Manual Muscle Testing Right Comments Generally 5/5 Left Comments Generally 5/5 Ankle/Foot Strength Ankle and Foot Manual Muscle Testing Right Comments Generally 5/5 Left Comments Generally 5/5 Toe Strength Toe Manual Muscle Testing Right Great Toe Extension 5 Normal Left Great Toe Extension 5 Normal PT-OP-Q Treatments Start: 03/14/22 11:17 Freq: Status: Active Protocol: Document 04/07/22 10:36 LRN (Rec: 04/07/22 11:20 LRN [id number]) Therapeutic Exercises Supine Exercises SLR Supine Exercise Name SLR - foot at 12 and 30 deg's ER'd. Side bilateral Equipment Used Shoes removed Reps/Minutes 10x each Comments Cuing for foot position changes. Piriformis stretch Supine Exercise Name Knee to opp shoulder Side bilateral Equipment Used GB to assist w/stretch and return to start position. Reps/Minutes 1x each Comments Much extra time for teaching and finding max tolerated stretch Lateral Hip stretch Supine Exercise Name Lateral Hip stretch Side bilateral Equipment Used GB to assist w/stretch Reps/Minutes 1x each Comments Extra time for teaching and finding max tolerated stretch Hip IR stretching Supine Exercise Name IT band type stretch-crossed legs w/top leg pushing bottom leg down Side bilateral Equipment Used GB to assist w/stretch and return to start position. Reps/Minutes 1x each Comments Extra time for teaching and finding max tolerated stretch Hip ER stretching Supine Exercise Name Fig 4 Side bilateral Reps/Minutes 1x each Comments Extra time for teaching and finding max tolerated stretch LE neural/hamstring stretch Supine Exercise Name LE neural/hamstring stretch Side bilateral Reps/Minutes 5' Comments Extra time for teaching position & finding max tolerated stretch Sitting Exercises Hamstring stretch Sitting Exercise Name Hamstring stretch Side bilateral Hip IR stretch Sitting Exercise Name Knees together, foot out laterally with verbal instructions given for HEP Side left Fig 4 stretch Sitting Exercise Name Fig 4 stretch positioning with verbal instructions given for HEP. Side left Self-Care/Home Management Treatment Education Patient Education Home Exercise Program Other Education Discussed pt to do HEP on her bed vs getting down on the floor due to difficulty getting back up. Activities Self-Care/Home Management Activities Issued & reviewed HEP: Sitting hip ER/IR/LE neural stretch. PT-OP-T Assessment and Plan Start: 03/14/22 11:17 Freq: Status: Active Protocol: Document 04/07/22 10:36 LRN (Rec: 04/07/22 11:20 LRN [id number]) Physical Therapy Assessment Goals Three Impairment Decreased ability to walk due to L hip/knee pain. Impairment Pain in L hip/knee walking downhill to mailbox and back with pain 4/10. Pt not able to walk to [facility] with tolerable pain. Short Term Goal (STG) Pt will be able to walk downhill to mailbox without pain and tolerable pain on return (<4/10). STG Duration 05/09/22 Fiber Machine Tender Goal (LTG) Pt will be able to tolerate walking from home to [facility] with tolerable pain (<4 /10) LTG Duration 06/21/22 Two Impairment Decreased function. Impairment LEFS score of 39, (40-59% impaired, score 32-47). Pt not able to walk on level and inclines/declines combined with tolerable pain. Short Term Goal (STG) Pt will be able to walk on level and inclines with tolerable pain. STG Duration 05/09/22 Fiber Machine Tender Goal (LTG) Improve function per LEFS score > 47 (20-39% impaired, score 48-62) LTG Duration 06/21/22 One Impairment Lacks appropriate self care HEP. Short Term Goal (STG) Pt will be educated in proper nighttime and daytime (sit, stand) posture. STG Duration 03/30/22 (04/03/22: MET GOAL) [facility] Goal (LTG) Pt will be independent with a self care HEP. 04/03/22: HEP reviewed: LE neural/hamstring stretch, Fig 4, Piriformis, Internal roll of hip for stretch; VMO strengthening of SLR & step ups. 04/07/22: HEP issued: Sitting hip ER/IR/LE neural stretch. LTG Duration 06/21/22 (04/03/22: Progressed). Progress Towards Goals Progress Towards Goals Progressing Toward Goals Assessment Summary Assessment Pt L hip IR mobility appears to be improving although still quite restricted and painful to move. Pt is moving slowly today and appears in discomfort from her doing her home ex's on the floor vs on her bed, as previously discussed. Pt is now ready to do ex's on her bed. Physical Therapy Plan Frequency and Duration Frequency of Treatment 2x/Week Plan of Care Start Date 03/23/22 Plan of Care End Date 06/21/22 Next Visit Focus/Plan Next Note Type Treatment Note Next Visit Plan Modalities of MH/Ice only due to Breast CA history. Review: L Hip ER/IR/Hamstring sitting ex's. Improve Hip PROM, check & improve hip strength. JMT to L hip/knee. EXER strengthening of L LE and core/pelvic stabilization. Progress walking tolerance.
--- NOTE | 2022-04-10 11:37 | PT.OTN ---
Current Diagnoses Unilateral primary osteoarthritis, left hip (04/10/22) Unilateral primary osteoarthritis, left knee (04/10/22) Physical Therapy Treatment Note PT-OP-A Visit Information Start: 03/14/22 11:17 Freq: Status: Active Protocol: Document 04/10/22 10:33 LRN (Rec: 04/10/22 11:18 LRN [id number]) Out-Patient Physical Therapy Visit Information Visit Information Visit Type Treatment Note Visit Start Time 10:33 Visit Stop Time 11:17 Total Visit Minutes 44 Visit Number 5 Evaluation Information Evaluation Date 03/23/22 Precautions Precautions Breast CA history. Memory loss, arthritis, hypothyroid. PT-OP-B Current Condition Start: 03/14/22 11:17 Freq: Status: Active Protocol: Document 03/23/22 13:03 LRN (Rec: 03/23/22 14:10 LRN [id number]) Current Condition History of Current Condition Onset Date Couple months ago. Current Complaints L hip and knee pain. History of Current Condition Having memory problems. Not able to use pain meds (arnica cream) due to A.Fib. In past, took a pain pill but is concerned meds can take her into A. Fib; therefore she is not taking any meds for L sided pain. Walks daily 1.5 miles but a year ago walked a lot further. Pt having to slit the L leg opening of her underwear for comfort because it feels too tight around the leg. Pt tends to sit with her R knee crossed over her L knee Prior Treatments and Tests No. X-rays by Dr. Unger indicated pain due to arthritis. Treatment Goals Patient/Caregiver Goals Pt goals: Walk downhill to mailbox without pain and tolerable pain on return (<4/10). Walk on flat and hill with tolerable pain. Walk to [facility] from home with tolerable pain. Personal Factors Other Personal Factors That May Effect Memory problems. Therapy/Recovery PT-OP-C Subjective Start: 03/14/22 11:17 Freq: Status: Active Protocol: Document 04/10/22 10:33 LRN (Rec: 04/10/22 11:18 LRN [id number]) OP-PT Subjective Patient Comments Patient Comments Has questions regarding doing ex's at home on bed. PT-OP-G Mobility & Gait Start: 03/14/22 11:17 Freq: Status: Active Protocol: Document 03/23/22 13:03 LRN (Rec: 03/23/22 14:10 LRN [id number]) OP Gait Assessment Gait Gait Assistance Required: Independent Able to Maintain Weight Bearing Status Yes During Gait Assistive Devices Assistive Device Straight Cane Gait Deviations General Gait Pattern Decreased Stride Length,Flexed Trunk,Lateral Trunk Lean, Narrow Based Gait Factors Limiting Gait Function Factors Limiting Gait Function Decreased Activity Tolerance, Decreased Strength,Pain,Poor Balance Comments Gait Comments Straight cane is actually a straight walking stick on the R side. Pt leans to R with gait. With cane the steps lengths are short but equal. Without cane pt take longer step with LLE. PT-OP-H Neuro Start: 03/14/22 11:17 Freq: Status: Active Protocol: Document 03/31/22 10:20 LRN (Rec: 03/31/22 11:35 LRN [id number]) Deep Tendon Reflex & Clonus Assessment Deep Tendon Reflex Right Achilles Deep Tendon Reflex 0 Absent Left Achilles Deep Tendon Reflex 0 Absent PT-OP-J Posture/Palpation/Skin Start: 03/14/22 11:17 Freq: Status: Active Protocol: Document 03/23/22 13:03 LRN (Rec: 03/23/22 14:10 LRN [id number]) Posture Evaluation Position Standing Head/C-Spine Posture Forward Head Shoulder Posture (L) Elevated Knee Posture (L) Excess Flexion Comments Posture Comments Trunk shift to R. R shoulder is low, sacrum is R sidebent and spine appears to be in mild C-curve with apex on the left. L knee slightly bent. Pt feels her L leg is long. Palpation Assessment Location L knee Palpation Location No area of tenderness in sitting. L hip Palpation Location ASIS's Palpation Details L ASIS is more anterior in supine. Supine>Longsit: L leg becomes slightly longer. PSIS is posterior. PT-OP-K Range of Motion Start: 03/14/22 11:17 Freq: Status: Active Protocol: Document 03/31/22 10:20 LRN (Rec: 03/31/22 11:35 LRN [id number]) Hip Goniometric Range of Motion Hip Right Passive Testing Position Supine Straight Leg Raise 65 Comments Initial Eval Prone hip IR : 45 deg's, ER 30 deg's. Left Passive Testing Position Supine Straight Leg Raise 60 Comments Initial Eval Prone hip IR : 10 deg's, ER 0 deg's. Knee Goniometric Range of Motion Knee Right Knee ROM WFL Yes Left Knee ROM WFL Yes PT-OP-M Strength Start: 03/14/22 11:17 Freq: Status: Active Protocol: Document 04/10/22 10:33 LRN (Rec: 04/10/22 11:18 LRN [id number]) Hip Strength Hip Manual Muscle Testing Right Flexion (L2) 3+ Fair+ Comments Pt not able to tolerate lying on L hip; therefore not able to formally assess hip AB. Left Flexion (L2) 3 Fair Abduction 3- Fair- Comments Able to lift leg to neurtral. PT-OP-Q Treatments Start: 03/14/22 11:17 Freq: Status: Active Protocol: Document 04/10/22 10:33 LRN (Rec: 04/10/22 11:18 LRN [id number]) Therapeutic Exercises Supine Exercises BKFO Supine Exercise Name BKFO Side bilateral Reps/Minutes 10x 3 SLR Supine Exercise Name SLR - foot at 12 and 30 deg's ER'd. Side bilateral Equipment Used Shoes removed Reps/Minutes 10x, short rest, 5x each Comments Cuing for foot position changes. LE neural/hamstring stretch Supine Exercise Name Assisted LE neural/hamstring stretch Side bilateral Reps/Minutes 5' Comments Extra time for determining max tolerated stretch Sidelying Exercises R hip AB Sidelying Exercise Name Assisted R hip AB in partial Sidelie due to L hip pain. Side right Equipment Used Pillow behind back and assist for direction of leg mvmt. Reps/Minutes 15x Comments Assist for direction of R leg mvmt L hip AB Sidelying Exercise Name L hip AB Side left Reps/Minutes 10x Comments Much phys & v cuing, phy assist for lifting direction of LLE Sitting Exercises Hamstring stretch Sitting Exercise Name Hamstring stretch Side bilateral Reps/Minutes 3' Comments Extra time for positioning. Hip IR stretch Sitting Exercise Name Knees together, foot out laterally with verbal instructions given for HEP Side left Reps/Minutes 3' Comments Extra time for positioning, pt able to put L ankle over knee . Fig 4 stretch Sitting Exercise Name Fig 4 stretch positioning with verbal instructions given for HEP. Side left Reps/Minutes 3' Comments Extra time for positioning, pt able to put L ankle over knee . PT-OP-T Assessment and Plan Start: 03/14/22 11:17 Freq: Status: Active Protocol: Document 04/10/22 10:33 LRN (Rec: 04/10/22 11:18 LRN [id number]) Physical Therapy Assessment Goals Three Impairment Decreased ability to walk due to L hip/knee pain. Impairment Pain in L hip/knee walking downhill to mailbox and back with pain 4/10. Pt not able to walk to [facility] from [facility] with tolerable pain. Short Term Goal (STG) Pt will be able to walk downhill to mailbox without pain and tolerable pain on return (<4/10). STG Duration 05/09/22 Insurance Claim Auditor Goal (LTG) Pt will be able to tolerate walking from home to the [facility] with tolerable pain (<4 /10) LTG Duration 06/21/22 Two Impairment Decreased function. Impairment LEFS score of 39, (40-59% impaired, score 32-47). Pt not able to walk on level and inclines/declines combined with tolerable pain. Short Term Goal (STG) Pt will be able to walk on level and inclines with tolerable pain. STG Duration 05/09/22 Senior Living Goal (LTG) Improve function per LEFS score > 47 (20-39% impaired, score 48-62) LTG Duration 06/21/22 One Impairment Lacks appropriate self care HEP. Short Term Goal (STG) Pt will be educated in proper nighttime and daytime (sit, stand) posture. STG Duration 03/30/22 (04/03/22: MET GOAL) Insurance Claim Auditor Goal (LTG) Pt will be independent with a self care HEP. 04/03/22: HEP reviewed: LE neural/hamstring stretch, Fig 4, Piriformis, Internal roll of hip for stretch; VMO strengthening of SLR & step ups. 04/07/22: HEP issued: Sitting hip ER/IR/LE neural stretch. 04/10/22: HEP issued: Hip AB in sidelie, BKFO in supine, & hold on Clamshell until hip AB strength is improved. LTG Duration 06/21/22 (04/10/22: Progressed ). Assessment Summary Assessment Pt initally with very limited L hip mobility and mild sacral L rotation. Pt demonstrates improved L hip flex strength from 2 to 3/5, and improved functional hip ER mobility from crossing L ankle over opp ankle to L ankle over opp knee. Pt needed cuing to keep back straight with sitting hip stretches, but showed good understanding of ex's. Physical Therapy Plan Frequency and Duration Frequency of Treatment 2x/Week Plan of Care Start Date 03/23/22 Plan of Care End Date 06/21/22 Next Visit Focus/Plan Next Note Type Treatment Note Next Visit Plan Modalities of MH/Ice only due to Breast CA history. Review: L Hip AB strengthening ex's issued. Check hip rot strength and issue ex's as needed. Manual Correct Sacral Rot if needed. POC: Improve L>R Hip PROM. JMT to L hip/knee. EXER strengthening of L LE and core /pelvic stabilization. Progress walking tolerance.
--- NOTE | 2022-04-14 13:41 | PT.OTN ---
Current Diagnoses Unilateral primary osteoarthritis, left hip (04/14/22) Unilateral primary osteoarthritis, left knee (04/14/22) Physical Therapy Treatment Note PT-OP-A Visit Information Start: 03/14/22 11:17 Freq: Status: Active Protocol: Document 04/14/22 10:37 LRN (Rec: 04/14/22 11:19 LRN [id number]) Out-Patient Physical Therapy Visit Information Visit Information Visit Type Treatment Note Visit Start Time 10:38 Visit Stop Time 11:16 Total Visit Minutes 38 Visit Number 6 Evaluation Information Evaluation Date 03/23/22 Precautions Precautions Breast CA history. Memory loss, arthritis, hypothyroid. PT-OP-B Current Condition Start: 03/14/22 11:17 Freq: Status: Active Protocol: Document 03/23/22 13:03 LRN (Rec: 03/23/22 14:10 LRN [id number]) Current Condition History of Current Condition Onset Date Couple months ago. Current Complaints L hip and knee pain. History of Current Condition Having memory problems. Not able to use pain meds (arnica cream) due to A.Fib. In past, took a pain pill but is concerned meds can take her into A. Fib; therefore she is not taking any meds for L sided pain. Walks daily 1.5 miles but a year ago walked a lot further. Pt having to slit the L leg opening of her underwear for comfort because it feels too tight around the leg. Pt tends to sit with her R knee crossed over her L knee Prior Treatments and Tests No. X-rays by Dr. Unger indicated pain due to arthritis. Treatment Goals Patient/Caregiver Goals Pt goals: Walk downhill to mailbox without pain and tolerable pain on return (<4/10). Walk on flat and hill with tolerable pain. Walk to [facility] from home with tolerable pain. Personal Factors Other Personal Factors That May Effect Memory problems. Therapy/Recovery PT-OP-C Subjective Start: 03/14/22 11:17 Freq: Status: Active Protocol: Document 04/14/22 10:37 LRN (Rec: 04/14/22 11:19 LRN [id number]) OP-PT Subjective Patient Comments Patient Comments States she didn't do as much as she should, but walked 1.7 miles yesterday. Notices less pain walking on the street. PT-OP-G Mobility & Gait Start: 03/14/22 11:17 Freq: Status: Active Protocol: Document 03/23/22 13:03 LRN (Rec: 03/23/22 14:10 LRN [id number]) OP Gait Assessment Gait Gait Assistance Required: Independent Able to Maintain Weight Bearing Status Yes During Gait Assistive Devices Assistive Device Straight Cane Gait Deviations General Gait Pattern Decreased Stride Length,Flexed Trunk,Lateral Trunk Lean, Narrow Based Gait Factors Limiting Gait Function Factors Limiting Gait Function Decreased Activity Tolerance, Decreased Strength,Pain,Poor Balance Comments Gait Comments Straight cane is actually a straight walking stick on the R side. Pt leans to R with gait. With cane the steps lengths are short but equal. Without cane pt take longer step with LLE. PT-OP-H Neuro Start: 03/14/22 11:17 Freq: Status: Active Protocol: Document 03/31/22 10:20 LRN (Rec: 03/31/22 11:35 LRN [id number]) Deep Tendon Reflex & Clonus Assessment Deep Tendon Reflex Right Achilles Deep Tendon Reflex 0 Absent Left Achilles Deep Tendon Reflex 0 Absent PT-OP-J Posture/Palpation/Skin Start: 03/14/22 11:17 Freq: Status: Active Protocol: Document 03/23/22 13:03 LRN (Rec: 03/23/22 14:10 LRN [id number]) Posture Evaluation Position Standing Head/C-Spine Posture Forward Head Shoulder Posture (L) Elevated Knee Posture (L) Excess Flexion Comments Posture Comments Trunk shift to R. R shoulder is low, sacrum is R sidebent and spine appears to be in mild C-curve with apex on the left. L knee slightly bent. Pt feels her L leg is long. Palpation Assessment Location L knee Palpation Location No area of tenderness in sitting. L hip Palpation Location ASIS's Palpation Details L ASIS is more anterior in supine. Supine>Longsit: L leg becomes slightly longer. PSIS is posterior. PT-OP-K Range of Motion Start: 03/14/22 11:17 Freq: Status: Active Protocol: Document 03/31/22 10:20 LRN (Rec: 03/31/22 11:35 LRN [id number]) Hip Goniometric Range of Motion Hip Right Passive Testing Position Supine Straight Leg Raise 65 Comments Initial Eval Prone hip IR : 45 deg's, ER 30 deg's. Left Passive Testing Position Supine Straight Leg Raise 60 Comments Initial Eval Prone hip IR : 10 deg's, ER 0 deg's. Knee Goniometric Range of Motion Knee Right Knee ROM WFL Yes Left Knee ROM WFL Yes PT-OP-M Strength Start: 03/14/22 11:17 Freq: Status: Active Protocol: Document 04/10/22 10:33 LRN (Rec: 04/10/22 11:18 LRN [id number]) Hip Strength Hip Manual Muscle Testing Right Flexion (L2) 3+ Fair+ Comments Pt not able to tolerate lying on L hip; therefore not able to formally assess hip AB. Left Flexion (L2) 3 Fair Abduction 3- Fair- Comments Able to lift leg to neurtral. PT-OP-Q Treatments Start: 03/14/22 11:17 Freq: Status: Active Protocol: Document 04/14/22 10:37 LRN (Rec: 04/14/22 11:19 LRN [id number]) Therapeutic Exercises Supine Exercises BKFO Supine Exercise Name BKFO Side bilateral Reps/Minutes 10x 3 Comments Cuing to keep pelvis stable and hold to stretch LLE into ER SLR Supine Exercise Name SLR - foot at 12 and 30 deg's ER'd. Side bilateral Equipment Used Shoes removed Reps/Minutes 10x, short rest, 5x each Comments Cuing for foot position changes. Lateral Hip stretch Supine Exercise Name Lateral Hip stretch Side left Equipment Used GB to assist w/stretch Reps/Minutes 1x each Comments Extra time for teaching and finding max tolerated stretch Hip IR stretching Supine Exercise Name IT band type stretch-crossed legs w/top leg pushing bottom leg down Side bilateral Equipment Used GB to assist w/stretch and return to start position. Reps/Minutes 1x each Comments Extra time for teaching and finding max tolerated stretch LE neural/hamstring stretch Supine Exercise Name LE neural/hamstring stretch Side bilateral Reps/Minutes 4' Comments Extra time for determining max tolerated stretch position Sitting Exercises Hip IR stretch Sitting Exercise Name Done in sitting as HEP this morning Fig 4 stretch Sitting Exercise Name Done in sitting as HEP this morning Standing Exercises Hip Shift to R Standing Exercise Name Hip Shift stretch to R. Side right Equipment Used // bars Reps/Minutes 2' Hip AB Standing Exercise Name Active AB strengthening Side bilateral Equipment Used // Bars Hand support delon sides Reps/Minutes 10x Comments Poor posture w/LLE lift (req'd cue asst L hip), good stability w/RLE lift. Self-Care/Home Management Treatment Activities Self-Care/Home Management Activities Modified HEP: L Hip AB in sidelie, R hip AB in standing, and Lateral Hip stretch with heel above or below knee of opp leg . and SKTC on the R. PT-OP-T Assessment and Plan Start: 03/14/22 11:17 Freq: Status: Active Protocol: Document 04/14/22 10:37 LRN (Rec: 04/14/22 11:19 LRN [id number]) Physical Therapy Assessment Goals Three Impairment Decreased ability to walk due to L hip/knee pain. Impairment Pain in L hip/knee walking downhill to mailbox and back with pain 4/10. Pt not able to walk to [facility] with tolerable pain. Short Term Goal (STG) Pt will be able to walk downhill to mailbox without pain and tolerable pain on return (<4/10). STG Duration 05/09/22 Assisted Goal (LTG) Pt will be able to tolerate walking from home to the [facility] with tolerable pain (<4 /10) LTG Duration 06/21/22 Two Impairment Decreased function. Impairment LEFS score of 39, (40-59% impaired, score 32-47). Pt not able to walk on level and inclines/declines combined with tolerable pain. Short Term Goal (STG) Pt will be able to walk on level and inclines with tolerable pain. STG Duration 05/09/22 Volunteer Fire Fighter Goal (LTG) Improve function per LEFS score > 47 (20-39% impaired, score 48-62) LTG Duration 06/21/22 One Impairment Lacks appropriate self care HEP. Short Term Goal (STG) Pt will be educated in proper nighttime and daytime (sit, stand) posture. STG Duration 03/30/22 (04/03/22: MET GOAL) Assisted Goal (LTG) Pt will be independent with a self care HEP. 04/03/22: HEP reviewed: LE neural/hamstring stretch, Fig 4, Piriformis, Internal roll of hip for stretch; VMO strengthening of SLR & step ups. 04/07/22: HEP issued: Sitting hip ER/IR/LE neural stretch. 04/10/22: HEP issued: Hip AB in sidelie, BKFO in supine, & hold on Clamshell until hip AB strength is improved. LTG Duration 06/21/22 (04/10/22: Progressed ). Assessment Summary Assessment Standing L Hip AB is with poor posture, R hip AB is good posture; therefore do L hip strengthening in R sidelie. Pt needs to move slowly out of stretch positions due to joint pains, and extra time needed to see handouts of each ex as they are performed. Pt is not able to perform hip AB in sidelie due to pain in hip when lying on L side; therefore pt tols standing hip AB better. Physical Therapy Plan Frequency and Duration Frequency of Treatment 2x/Week Plan of Care Start Date 03/23/22 Plan of Care End Date 06/21/22 Next Visit Focus/Plan Next Note Type Treatment Note Next Visit Plan Modalities of MH/Ice only due to Breast CA history. Issue: Hip AB strengthening standing for LLE, R sidelie for L hip AB. Check hip rot strength and issue ex's as needed. Manual Correct Sacral Rot if needed. POC: Improve L>R Hip PROM. JMT to L hip/knee. EXER strengthening of L LE and core /pelvic stabilization. Progress walking tolerance.
--- NOTE | 2022-04-17 12:21 | PT.OTN ---
Current Diagnoses Unilateral primary osteoarthritis, left hip (04/17/22) Unilateral primary osteoarthritis, left knee (04/17/22) Physical Therapy Treatment Note PT-OP-A Visit Information Start: 03/14/22 11:17 Freq: Status: Active Protocol: Document 04/17/22 10:39 LRN (Rec: 04/17/22 11:24 LRN [id number]) Out-Patient Physical Therapy Visit Information Visit Information Visit Type Treatment Note Visit Start Time 10:39 Visit Stop Time 11:19 Total Visit Minutes 40 Visit Number 7 Evaluation Information Evaluation Date 03/23/22 Precautions Precautions Breast CA history. Memory loss, arthritis, hypothyroid. PT-OP-B Current Condition Start: 03/14/22 11:17 Freq: Status: Active Protocol: Document 03/23/22 13:03 LRN (Rec: 03/23/22 14:10 LRN [id number]) Current Condition History of Current Condition Onset Date Couple months ago. Current Complaints L hip and knee pain. History of Current Condition Having memory problems. Not able to use pain meds (arnica cream) due to A.Fib. In past, took a pain pill but is concerned meds can take her into A. Fib; therefore she is not taking any meds for L sided pain. Walks daily 1.5 miles but a year ago walked a lot further. Pt having to slit the L leg opening of her underwear for comfort because it feels too tight around the leg. Pt tends to sit with her R knee crossed over her L knee Prior Treatments and Tests No. X-rays by Dr. Unger indicated pain due to arthritis. Treatment Goals Patient/Caregiver Goals Pt goals: Walk downhill to mailbox without pain and tolerable pain on return (<4/10). Walk on flat and hill with tolerable pain. Walk to [facility] from home with tolerable pain. Personal Factors Other Personal Factors That May Effect Memory problems. Therapy/Recovery PT-OP-C Subjective Start: 03/14/22 11:17 Freq: Status: Active Protocol: Document 04/17/22 10:39 LRN (Rec: 04/17/22 11:24 LRN [id number]) OP-PT Subjective Patient Comments Patient Comments States she is trying to add a little incline to her walk. Pt asked question regarding L hip wrap. PT-OP-G Mobility & Gait Start: 03/14/22 11:17 Freq: Status: Active Protocol: Document 03/23/22 13:03 LRN (Rec: 03/23/22 14:10 LRN [id number]) OP Gait Assessment Gait Gait Assistance Required: Independent Able to Maintain Weight Bearing Status Yes During Gait Assistive Devices Assistive Device Straight Cane Gait Deviations General Gait Pattern Decreased Stride Length,Flexed Trunk,Lateral Trunk Lean, Narrow Based Gait Factors Limiting Gait Function Factors Limiting Gait Function Decreased Activity Tolerance, Decreased Strength,Pain,Poor Balance Comments Gait Comments Straight cane is actually a straight walking stick on the R side. Pt leans to R with gait. With cane the steps lengths are short but equal. Without cane pt take longer step with LLE. PT-OP-H Neuro Start: 03/14/22 11:17 Freq: Status: Active Protocol: Document 03/31/22 10:20 LRN (Rec: 03/31/22 11:35 LRN [id number]) Deep Tendon Reflex & Clonus Assessment Deep Tendon Reflex Right Achilles Deep Tendon Reflex 0 Absent Left Achilles Deep Tendon Reflex 0 Absent PT-OP-J Posture/Palpation/Skin Start: 03/14/22 11:17 Freq: Status: Active Protocol: Document 03/23/22 13:03 LRN (Rec: 03/23/22 14:10 LRN [id number]) Posture Evaluation Position Standing Head/C-Spine Posture Forward Head Shoulder Posture (L) Elevated Knee Posture (L) Excess Flexion Comments Posture Comments Trunk shift to R. R shoulder is low, sacrum is R sidebent and spine appears to be in mild C-curve with apex on the left. L knee slightly bent. Pt feels her L leg is long. Palpation Assessment Location L knee Palpation Location No area of tenderness in sitting. L hip Palpation Location ASIS's Palpation Details L ASIS is more anterior in supine. Supine>Longsit: L leg becomes slightly longer. PSIS is posterior. PT-OP-K Range of Motion Start: 03/14/22 11:17 Freq: Status: Active Protocol: Document 03/31/22 10:20 LRN (Rec: 03/31/22 11:35 LRN [id number]) Hip Goniometric Range of Motion Hip Right Passive Testing Position Supine Straight Leg Raise 65 Comments Initial Eval Prone hip IR : 45 deg's, ER 30 deg's. Left Passive Testing Position Supine Straight Leg Raise 60 Comments Initial Eval Prone hip IR : 10 deg's, ER 0 deg's. Knee Goniometric Range of Motion Knee Right Knee ROM WFL Yes Left Knee ROM WFL Yes PT-OP-M Strength Start: 03/14/22 11:17 Freq: Status: Active Protocol: Document 04/10/22 10:33 LRN (Rec: 04/10/22 11:18 LRN [id number]) Hip Strength Hip Manual Muscle Testing Right Flexion (L2) 3+ Fair+ Comments Pt not able to tolerate lying on L hip; therefore not able to formally assess hip AB. Left Flexion (L2) 3 Fair Abduction 3- Fair- Comments Able to lift leg to neurtral. PT-OP-Q Treatments Start: 03/14/22 11:17 Freq: Status: Active Protocol: Document 04/17/22 10:39 LRN (Rec: 04/17/22 11:24 LRN [id number]) Therapeutic Exercises Supine Exercises BKFO Supine Exercise Name BKFO Side bilateral Equipment Used Lev 1 Reps/Minutes 10x 3 Comments Cuing to keep pelvis stable and hold LLE into ER Hip ER stretching Supine Exercise Name BKFO for hip ER stretch Side bilateral Reps/Minutes 1x each Comments Extra time for teaching and finding max tolerated stretch LE neural/hamstring stretch Supine Exercise Name LE neural/hamstring stretch Side bilateral Reps/Minutes 4' Comments Extra time for determining max tolerated stretch position Standing Exercises IT Band stretch Standing Exercise Name IT band stretch Side bilateral Comments Cuing for proper movement for stretch. VMO heel stap/squat Standing Exercise Name VMO heel tap/squat Side bilateral Reps/Minutes 8' Comments Extra time for training and cuing for correct positioning Side stepping Standing Exercise Name Side stepping with and w/o Walking stick Side bilateral Reps/Minutes 2x Comments Cuing for trunk upright posture Hip Shift to R Standing Exercise Name Hip Shift stretch to R. Side right Reps/Minutes 2' Hip AB Standing Exercise Name Active AB strengthening Side bilateral Equipment Used Hand support delon sides on countertop Reps/Minutes 10x Comments Posture w/LLE lift (req'd cue asst L hip), good stability w/ RLE lift. Self-Care/Home Management Treatment Education Patient Education Home Exercise Program Activities Self-Care/Home Management Activities Issued & reviewed HEP: Standing hip AB and VMO strengthening; added IT band standing stretch. Issued Lev 1 TB. PT-OP-T Assessment and Plan Start: 03/14/22 11:17 Freq: Status: Active Protocol: Document 04/17/22 10:39 LRN (Rec: 04/17/22 11:24 LRN [id number]) Physical Therapy Assessment Goals Three Impairment Decreased ability to walk due to L hip/knee pain. Impairment Pain in L hip/knee walking downhill to mailbox and back with pain 4/10. Pt not able to walk to [facility] from home with tolerable pain. Short Term Goal (STG) Pt will be able to walk downhill to mailbox without pain and tolerable pain on return (<4/10). STG Duration 05/09/22 Director Ambulatory Goal (LTG) Pt will be able to tolerate walking from home to the [facility] with tolerable pain (<4 /10) LTG Duration 06/21/22 Two Impairment Decreased function. Impairment LEFS score of 39, (40-59% impaired, score 32-47). Pt not able to walk on level and inclines/declines combined with tolerable pain. Short Term Goal (STG) Pt will be able to walk on level and inclines with tolerable pain. STG Duration 05/09/22 Senior Care Goal (LTG) Improve function per LEFS score > 47 (20-39% impaired, score 48-62) LTG Duration 06/21/22 One Impairment Lacks appropriate self care HEP. Short Term Goal (STG) Pt will be educated in proper nighttime and daytime (sit, stand) posture. STG Duration 03/30/22 (04/03/22: MET GOAL) Senior Care Goal (LTG) Pt will be independent with a self care HEP. 04/03/22: HEP reviewed: LE neural/hamstring stretch, Fig 4, Piriformis, Internal roll of hip for stretch; VMO strengthening of SLR & step ups. 04/07/22: HEP issued: Sitting hip ER/IR/LE neural stretch. 04/10/22: HEP issued: Hip AB in sidelie, BKFO in supine, & hold on Clamshell until hip AB strength is improved. 04/17/22: HEP: Standing VMO heel tap squats & IT band stretch, hip AB and sidestepping. LTG Duration 06/21/22 (04/17/22: Progressed ). Assessment Summary Assessment Pt is very slow to move through ex due to sharp pain in the L hip with sudden movements. Pt able to perform new ex's without difficuty but extra time spent training was needed. Pt tolerating added ex's well without notable fatigue. Pt choosing to do standing hip AB strengthening over sidelie for the LLE due to ease of exercise in standing. Physical Therapy Plan Frequency and Duration Frequency of Treatment 2x/Week Plan of Care Start Date 03/23/22 Plan of Care End Date 06/21/22 Next Visit Focus/Plan Next Note Type Treatment Note Next Visit Plan CAUTION: Modalities of MH/Ice only due to Breast CA history . Assess pt's pain tolerance for walking on level and inclines (STG #2), and to/from mailbox [facility] (Goal #3). Progress walking tolerance. Check hip rot strength and issue ex's as needed. Manual Correct Sacral Rot as needed. POC: Improve L>R Hip PROM. JMT to L hip/knee. EXER strengthening of L LE and core /pelvic stabilization.
--- NOTE | 2022-04-28 12:30 | PT.OTN ---
Current Diagnoses Unilateral primary osteoarthritis, left hip (04/28/22) Unilateral primary osteoarthritis, left knee (04/28/22) Physical Therapy Treatment Note PT-OP-A Visit Information Start: 03/14/22 11:17 Freq: Status: Active Protocol: Document 04/28/22 10:32 LRN (Rec: 04/28/22 11:16 LRN [id number]) Out-Patient Physical Therapy Visit Information Visit Information Visit Type Treatment Note Visit Start Time 10:32 Visit Stop Time 11:15 Total Visit Minutes 43 Visit Number 8 Evaluation Information Evaluation Date 03/23/22 Precautions Precautions Breast CA history. Memory loss, arthritis, hypothyroid. PT-OP-B Current Condition Start: 03/14/22 11:17 Freq: Status: Active Protocol: Document 03/23/22 13:03 LRN (Rec: 03/23/22 14:10 LRN [id number]) Current Condition History of Current Condition Onset Date Couple months ago. Current Complaints L hip and knee pain. History of Current Condition Having memory problems. Not able to use pain meds (arnica cream) due to A.Fib. In past, took a pain pill but is concerned meds can take her into A. Fib; therefore she is not taking any meds for L sided pain. Walks daily 1.5 miles but a year ago walked a lot further. Pt having to slit the L leg opening of her underwear for comfort because it feels too tight around the leg. Pt tends to sit with her R knee crossed over her L knee Prior Treatments and Tests No. X-rays by Dr. Unger indicated pain due to arthritis. Treatment Goals Patient/Caregiver Goals Pt goals: Walk downhill to mailbox without pain and tolerable pain on return (<4/10). Walk on flat and hill with tolerable pain. Walk to [facility] from home with tolerable pain. Personal Factors Other Personal Factors That May Effect Memory problems. Therapy/Recovery PT-OP-C Subjective Start: 03/14/22 11:17 Freq: Status: Active Protocol: Document 04/28/22 10:32 LRN (Rec: 04/28/22 11:16 LRN [id number]) OP-PT Subjective Patient Comments Patient Comments Pt verbal review of HEP. Not noticing a change. Doing better with walking at home, hasn't walked inclines. Hasn' t walked to mailbox. PT-OP-G Mobility & Gait Start: 03/14/22 11:17 Freq: Status: Active Protocol: Document 03/23/22 13:03 LRN (Rec: 03/23/22 14:10 LRN [id number]) OP Gait Assessment Gait Gait Assistance Required: Independent Able to Maintain Weight Bearing Status Yes During Gait Assistive Devices Assistive Device Straight Cane Gait Deviations General Gait Pattern Decreased Stride Length,Flexed Trunk,Lateral Trunk Lean, Narrow Based Gait Factors Limiting Gait Function Factors Limiting Gait Function Decreased Activity Tolerance, Decreased Strength,Pain,Poor Balance Comments Gait Comments Straight cane is actually a straight walking stick on the R side. Pt leans to R with gait. With cane the steps lengths are short but equal. Without cane pt take longer step with LLE. PT-OP-H Neuro Start: 03/14/22 11:17 Freq: Status: Active Protocol: Document 03/31/22 10:20 LRN (Rec: 03/31/22 11:35 LRN [id number]) Deep Tendon Reflex & Clonus Assessment Deep Tendon Reflex Right Achilles Deep Tendon Reflex 0 Absent Left Achilles Deep Tendon Reflex 0 Absent PT-OP-J Posture/Palpation/Skin Start: 03/14/22 11:17 Freq: Status: Active Protocol: Document 03/23/22 13:03 LRN (Rec: 03/23/22 14:10 LRN [id number]) Posture Evaluation Position Standing Head/C-Spine Posture Forward Head Shoulder Posture (L) Elevated Knee Posture (L) Excess Flexion Comments Posture Comments Trunk shift to R. R shoulder is low, sacrum is R sidebent and spine appears to be in mild C-curve with apex on the left. L knee slightly bent. Pt feels her L leg is long. Palpation Assessment Location L knee Palpation Location No area of tenderness in sitting. L hip Palpation Location ASIS's Palpation Details L ASIS is more anterior in supine. Supine>Longsit: L leg becomes slightly longer. PSIS is posterior. PT-OP-K Range of Motion Start: 03/14/22 11:17 Freq: Status: Active Protocol: Document 03/31/22 10:20 LRN (Rec: 03/31/22 11:35 LRN [id number]) Hip Goniometric Range of Motion Hip Right Passive Testing Position Supine Straight Leg Raise 65 Comments Initial Eval Prone hip IR : 45 deg's, ER 30 deg's. Left Passive Testing Position Supine Straight Leg Raise 60 Comments Initial Eval Prone hip IR : 10 deg's, ER 0 deg's. Knee Goniometric Range of Motion Knee Right Knee ROM WFL Yes Left Knee ROM WFL Yes PT-OP-M Strength Start: 03/14/22 11:17 Freq: Status: Active Protocol: Document 04/10/22 10:33 LRN (Rec: 04/10/22 11:18 LRN [id number]) Hip Strength Hip Manual Muscle Testing Right Flexion (L2) 3+ Fair+ Comments Pt not able to tolerate lying on L hip; therefore not able to formally assess hip AB. Left Flexion (L2) 3 Fair Abduction 3- Fair- Comments Able to lift leg to neurtral. PT-OP-Q Treatments Start: 03/14/22 11:17 Freq: Status: Active Protocol: Document 04/28/22 10:32 LRN (Rec: 04/28/22 11:16 LRN [id number]) Therapeutic Exercises Supine Exercises BKFO Supine Exercise Name BKFO Side bilateral Equipment Used Lev 2 Reps/Minutes 10x 3 Comments Cuing to keep pelvis stable and hold LLE into ER SLR Supine Exercise Name SLR - foot at 12 and 30 deg's ER'd. Side bilateral Equipment Used Shoes removed Reps/Minutes 10x, short rest, 5x each Comments Cuing for foot position changes. Piriformis stretch Supine Exercise Name Knee to opp shoulder Side left Reps/Minutes 1x Lateral Hip stretch Supine Exercise Name Lateral Hip stretch Side left Equipment Used GB to assist w/stretch Reps/Minutes 1x each Comments Extra time for teaching and finding max tolerated stretch Hip IR stretching Supine Exercise Name IT band type stretch-crossed legs w/top leg pushing bottom leg down Side bilateral Equipment Used GB to assist w/stretch and return to start position. Reps/Minutes 1x each Comments Extra time for teaching and finding max tolerated stretch Hip ER stretching Supine Exercise Name Fig 4 Side left Reps/Minutes 1x each LE neural/hamstring stretch Supine Exercise Name LE neural/hamstring stretch Side bilateral Reps/Minutes 4' Comments Extra time for determining max tolerated stretch position Standing Exercises IT Band stretch Standing Exercise Name IT band stretch Side bilateral Comments Cuing for proper movement for stretch. VMO heel stap/squat Standing Exercise Name VMO heel tap/squat Side bilateral Reps/Minutes 8' Comments Extra time for training and cuing for correct positioning Hip AB Standing Exercise Name Active AB strengthening Side bilateral Equipment Used Hand support delon sides on countertop Reps/Minutes 10x Comments Posture w/LLE lift (req'd cue asst L hip), good stability w/ RLE lift. PT-OP-T Assessment and Plan Start: 03/14/22 11:17 Freq: Status: Active Protocol: Document 04/28/22 10:32 LRN (Rec: 04/28/22 11:16 LRN [id number]) Physical Therapy Assessment Goals Three Impairment Decreased ability to walk due to L hip/knee pain. Impairment Pain in L hip/knee walking downhill to mailbox and back with pain 4/10. Pt not able to walk to [facility] from home with tolerable pain. Short Term Goal (STG) Pt will be able to walk downhill to mailbox without pain and tolerable pain on return (<4/10). STG Duration 05/09/22 [facility] Goal (LTG) Pt will be able to tolerate walking from home to the [facility] with tolerable pain (<4 /10) LTG Duration 06/21/22 Two Impairment Decreased function. Impairment LEFS score of 39, (40-59% impaired, score 32-47). Pt not able to walk on level and inclines/declines combined with tolerable pain. Short Term Goal (STG) Pt will be able to walk on level and inclines with tolerable pain. STG Duration 05/09/22 Mcc Goal (LTG) Improve function per LEFS score > 47 (20-39% impaired, score 48-62) LTG Duration 06/21/22 One Impairment Lacks appropriate self care HEP. Short Term Goal (STG) Pt will be educated in proper nighttime and daytime (sit, stand) posture. STG Duration 03/30/22 (04/03/22: MET GOAL) Mcc Goal (LTG) Pt will be independent with a self care HEP. 04/03/22: HEP reviewed: LE neural/hamstring stretch, Fig 4, Piriformis, Internal roll of hip for stretch; VMO strengthening of SLR & step ups. 04/07/22: HEP issued: Sitting hip ER/IR/LE neural stretch. 04/10/22: HEP issued: Hip AB in sidelie, BKFO in supine, & hold on Clamshell until hip AB strength is improved. 04/17/22: HEP: Standing VMO heel tap squats & IT band stretch, hip AB and sidestepping. LTG Duration 06/21/22 (04/17/22: Progressed ). Assessment Summary Assessment Pt hip rotation strength is good (5/5) within available range except for L hip ER is 3 /5. Pt is limited in mobility of L hip IR/ER. Pt has home ex's that will help improve her hip mobility and strength with in tolerance. She has not yet tried walking to her mailbox due to the inclines; therefore unable to assess her progress with walking. Pt will attempt walking to her mailbox in PM this week and will report at next visit her progress. Pt has good knowledge of her HEP to date; therefore will decrease therapy to 1x/week with focus in clinic on core strengthening and endurance with gait. Physical Therapy Plan Frequency and Duration Frequency of Treatment 1x/Week Plan of Care Start Date 03/23/22 Plan of Care End Date 06/21/22 Next Visit Focus/Plan Next Note Type Treatment Note Next Visit Plan Pt is comfortable with her current HEP; therefore decr therapy to 1x/week. CAUTION: Modalities of MH/Ice only due to Breast CA history . Assess pt's pain tolerance for walking on level and inclines (STG #2), and to/from mailbox /[facility] (Goal #3). Progress walking tolerance and core stability. Manual Correct Sacral Rot as needed. POC: Improve L>R Hip PROM. JMT to L hip. EXER strengthening of L LE and core /pelvic stabilization.
--- NOTE | 2022-05-01 11:36 | PT.OTN ---
Current Diagnoses Unilateral primary osteoarthritis, left hip (05/01/22) Unilateral primary osteoarthritis, left knee (05/01/22) Physical Therapy Treatment Note PT-OP-A Visit Information Start: 03/14/22 11:17 Freq: Status: Active Protocol: Document 05/01/22 10:31 LRN (Rec: 05/01/22 11:32 LRN [id number]) Out-Patient Physical Therapy Visit Information Visit Information Visit Type Treatment Note Visit Start Time 10:31 Visit Stop Time 11:15 Total Visit Minutes 44 Visit Number 9 Evaluation Information Evaluation Date 03/23/22 Precautions Precautions Breast CA history. Memory loss, arthritis, hypothyroid. PT-OP-B Current Condition Start: 03/14/22 11:17 Freq: Status: Active Protocol: Document 03/23/22 13:03 LRN (Rec: 03/23/22 14:10 LRN [id number]) Current Condition History of Current Condition Onset Date Couple months ago. Current Complaints L hip and knee pain. History of Current Condition Having memory problems. Not able to use pain meds (arnica cream) due to A.Fib. In past, took a pain pill but is concerned meds can take her into A. Fib; therefore she is not taking any meds for L sided pain. Walks daily 1.5 miles but a year ago walked a lot further. Pt having to slit the L leg opening of her underwear for comfort because it feels too tight around the leg. Pt tends to sit with her R knee crossed over her L knee Prior Treatments and Tests No. X-rays by Dr. Unger indicated pain due to arthritis. Treatment Goals Patient/Caregiver Goals Pt goals: Walk downhill to mailbox without pain and tolerable pain on return (<4/10). Walk on flat and hill with tolerable pain. Walk to [facility] from home with tolerable pain. Personal Factors Other Personal Factors That May Effect Memory problems. Therapy/Recovery PT-OP-C Subjective Start: 03/14/22 11:17 Freq: Status: Active Protocol: Document 05/01/22 10:31 LRN (Rec: 05/01/22 11:32 LRN [id number]) OP-PT Subjective Patient Comments Patient Comments Pt has questions reagarding home exercises. PT-OP-G Mobility & Gait Start: 03/14/22 11:17 Freq: Status: Active Protocol: Document 03/23/22 13:03 LRN (Rec: 03/23/22 14:10 LRN [id number]) OP Gait Assessment Gait Gait Assistance Required: Independent Able to Maintain Weight Bearing Status Yes During Gait Assistive Devices Assistive Device Straight Cane Gait Deviations General Gait Pattern Decreased Stride Length,Flexed Trunk,Lateral Trunk Lean, Narrow Based Gait Factors Limiting Gait Function Factors Limiting Gait Function Decreased Activity Tolerance, Decreased Strength,Pain,Poor Balance Comments Gait Comments Straight cane is actually a straight walking stick on the R side. Pt leans to R with gait. With cane the steps lengths are short but equal. Without cane pt take longer step with LLE. PT-OP-H Neuro Start: 03/14/22 11:17 Freq: Status: Active Protocol: Document 03/31/22 10:20 LRN (Rec: 03/31/22 11:35 LRN [id number]) Deep Tendon Reflex & Clonus Assessment Deep Tendon Reflex Right Achilles Deep Tendon Reflex 0 Absent Left Achilles Deep Tendon Reflex 0 Absent PT-OP-J Posture/Palpation/Skin Start: 03/14/22 11:17 Freq: Status: Active Protocol: Document 03/23/22 13:03 LRN (Rec: 03/23/22 14:10 LRN [id number]) Posture Evaluation Position Standing Head/C-Spine Posture Forward Head Shoulder Posture (L) Elevated Knee Posture (L) Excess Flexion Comments Posture Comments Trunk shift to R. R shoulder is low, sacrum is R sidebent and spine appears to be in mild C-curve with apex on the left. L knee slightly bent. Pt feels her L leg is long. Palpation Assessment Location L knee Palpation Location No area of tenderness in sitting. L hip Palpation Location ASIS's Palpation Details L ASIS is more anterior in supine. Supine>Longsit: L leg becomes slightly longer. PSIS is posterior. PT-OP-K Range of Motion Start: 03/14/22 11:17 Freq: Status: Active Protocol: Document 05/01/22 10:31 LRN (Rec: 05/01/22 11:32 LRN [id number]) Hip Goniometric Range of Motion Hip Right Passive Testing Position Supine Internal Rotation 22 External Rotation 30 Left Passive Testing Position Supine Internal Rotation 10 External Rotation 15 PT-OP-M Strength Start: 03/14/22 11:17 Freq: Status: Active Protocol: Document 04/10/22 10:33 LRN (Rec: 04/10/22 11:18 LRN [id number]) Hip Strength Hip Manual Muscle Testing Right Flexion (L2) 3+ Fair+ Comments Pt not able to tolerate lying on L hip; therefore not able to formally assess hip AB. Left Flexion (L2) 3 Fair Abduction 3- Fair- Comments Able to lift leg to neurtral. PT-OP-Q Treatments Start: 03/14/22 11:17 Freq: Status: Active Protocol: Document 05/01/22 10:31 LRN (Rec: 05/01/22 11:32 LRN [id number]) Therapeutic Exercises Supine Exercises BKFO Supine Exercise Name BKFO Side bilateral Equipment Used Lev 2 Reps/Minutes 10x 3 Comments Cuing to keep pelvis stable and hold LLE into ER SLR Supine Exercise Name SLR - foot at 12 and 30 deg's ER'd. Side bilateral Equipment Used Shoes removed Reps/Minutes 10x Comments Cuing for foot position changes. Piriformis stretch Supine Exercise Name Knee to opp shoulder Side left Reps/Minutes 1x Comments ROM taken Lateral Hip stretch Supine Exercise Name Lateral Hip stretch Side left Equipment Used GB to assist w/stretch Reps/Minutes 1x each Comments Extra time for teaching and finding max tolerated stretch Hip ER stretching Supine Exercise Name Fig 4 (L foot on R knee) Side left Reps/Minutes 1x Comments ROM taken LE neural/hamstring stretch Supine Exercise Name LE neural/hamstring stretch Side bilateral Reps/Minutes 4' Comments Extra time for determining max tolerated stretch position Standing Exercises IT Band stretch Standing Exercise Name IT band stretch Side bilateral Reps/Minutes 10' Comments Much training for proper movement for stretch. VMO heel stap/squat Standing Exercise Name VMO heel tap/squat Side left Reps/Minutes 10x each Comments Extra time for training and cuing for correct positioning Hip AB Standing Exercise Name Active AB strengthening Side left Equipment Used Hand support delon sides on countertop Reps/Minutes 10x Comments Posture w/LLE lift (req'd cue asst L hip), good stability w/ RLE lift. PT-OP-T Assessment and Plan Start: 03/14/22 11:17 Freq: Status: Active Protocol: Document 05/01/22 10:31 LRN (Rec: 05/01/22 11:32 LRN [id number]) Physical Therapy Assessment Goals Three Impairment Decreased ability to walk due to L hip/knee pain. Impairment Pain in L hip/knee walking downhill to mailbox and back with pain 4/10. Pt not able to walk to [facility] with tolerable pain. Short Term Goal (STG) Pt will be able to walk downhill to mailbox without pain and tolerable pain on return (<4/10). 05/01/22: Walks to mailbox without pain and back with pain 3-4/10. STG Duration 05/09/22 (05/01/22: First time met) Manager Intelligence Goal (LTG) Pt will be able to tolerate walking from [facility] to [facility] with tolerable pain (<4 /10) 05/01/22: Pt not able to walk to [facility] from home. LTG Duration 06/21/22 Two Impairment Decreased function. Impairment LEFS score of 39, (40-59% impaired, score 32-47). Pt not able to walk on level and inclines/declines combined with tolerable pain. Short Term Goal (STG) Pt will be able to walk on level and inclines with tolerable pain. STG Duration 05/09/22 Manager Intelligence Goal (LTG) Improve function per LEFS score > 47 (20-39% impaired, score 48-62) LTG Duration 06/21/22 One Impairment Lacks appropriate self care HEP. Short Term Goal (STG) Pt will be educated in proper nighttime and daytime (sit, stand) posture. STG Duration 03/30/22 (04/03/22: MET GOAL) Manager Intelligence Goal (LTG) Pt will be independent with a self care HEP. 04/03/22: HEP reviewed: LE neural/hamstring stretch, Fig 4, Piriformis, Internal roll of hip for stretch; VMO strengthening of SLR & step ups. 04/07/22: HEP issued: Sitting hip ER/IR/LE neural stretch. 04/10/22: HEP issued: Hip AB in sidelie, BKFO in supine, & hold on Clamshell until hip AB strength is improved. 04/17/22: HEP: Standing VMO heel tap squats & IT band stretch, hip AB and sidestepping. LTG Duration 06/21/22 (04/17/22: Progressed ). Assessment Summary Assessment Pt's L hip IR/ER mobility decreased 50% compared to R hip. Pt had much difficulty understanding and getting an TFL/IT Band stretch, but was made more clear with training. Pt needs handouts to perform ex's. Physical Therapy Plan Frequency and Duration Frequency of Treatment 1x/Week Plan of Care Start Date 03/23/22 Plan of Care End Date 06/21/22 Next Visit Focus/Plan Next Note Type Progress Note Next Visit Plan CAUTION: Modalities of MH/Ice only due to Breast CA history . Monitor L hip pain with ability to walk to/from mailbox. Add in clinic: JMT to L hip, walking tolerance for incline/ decline (?try TM or outside), general strengthen L>R hip, and progress core stability strengthening (generally and for support for scoliosis). Manual Correct Sacral Rot as needed. POC: Improve L>R Hip PROM. EXER strengthening of L LE and core/pelvic stabilization.
--- NOTE | 2022-05-08 18:11 | PT.OTN ---
Current Diagnoses Unilateral primary osteoarthritis, left hip (05/08/22) Unilateral primary osteoarthritis, left knee (05/08/22) Physical Therapy Treatment Note PT-OP-A Visit Information Start: 03/14/22 11:17 Freq: Status: Active Protocol: Document 05/08/22 10:35 LRN (Rec: 05/08/22 11:22 LRN [id number]) Out-Patient Physical Therapy Visit Information Visit Information Visit Type Progress Note Visit Start Time 10:35 Visit Stop Time 11:14 Total Visit Minutes 39 Visit Number 10 Evaluation Information Evaluation Date 03/23/22 Precautions Precautions Breast CA history. Memory loss, arthritis, hypothyroid. PT-OP-B Current Condition Start: 03/14/22 11:17 Freq: Status: Active Protocol: Document 03/23/22 13:03 LRN (Rec: 03/23/22 14:10 LRN [id number]) Current Condition History of Current Condition Onset Date Couple months ago. Current Complaints L hip and knee pain. History of Current Condition Having memory problems. Not able to use pain meds (arnica cream) due to A.Fib. In past, took a pain pill but is concerned meds can take her into A. Fib; therefore she is not taking any meds for L sided pain. Walks daily 1.5 miles but a year ago walked a lot further. Pt having to slit the L leg opening of her underwear for comfort because it feels too tight around the leg. Pt tends to sit with her R knee crossed over her L knee Prior Treatments and Tests No. X-rays by Dr. Unger indicated pain due to arthritis. Treatment Goals Patient/Caregiver Goals Pt goals: Walk downhill to mailbox without pain and tolerable pain on return (<4/10). Walk on flat and hill with tolerable pain. [facility] to [facility] from home with tolerable pain. Personal Factors Other Personal Factors That May Effect Memory problems. Therapy/Recovery PT-OP-C Subjective Start: 03/14/22 11:17 Freq: Status: Active Protocol: Document 05/08/22 10:35 LRN (Rec: 05/08/22 11:22 LRN [id number]) OP-PT Subjective Patient Comments Patient Comments Wants to review single BKFO ex that is painful. States she is able to walk to mailbox and a little farther w/o pain and then back with 3/10 pain. Her walk to the mailbox is on an incline and she reports ablility to walk on level and inclines with tolerable pain. Patient Reported Progress Improving Patient Questionnaires Lower Extremity Functional Scale LEFS Score 48 LEFS Impairment 20 to 39% Impaired (Score 48- 62) PT-OP-G Mobility & Gait Start: 03/14/22 11:17 Freq: Status: Active Protocol: Document 03/23/22 13:03 LRN (Rec: 03/23/22 14:10 LRN [id number]) OP Gait Assessment Gait Gait Assistance Required: Independent Able to Maintain Weight Bearing Status Yes During Gait Assistive Devices Assistive Device Straight Cane Gait Deviations General Gait Pattern Decreased Stride Length,Flexed Trunk,Lateral Trunk Lean, Narrow Based Gait Factors Limiting Gait Function Factors Limiting Gait Function Decreased Activity Tolerance, Decreased Strength,Pain,Poor Balance Comments Gait Comments Straight cane is actually a straight walking stick on the R side. Pt leans to R with gait. With cane the steps lengths are short but equal. Without cane pt take longer step with LLE. PT-OP-H Neuro Start: 03/14/22 11:17 Freq: Status: Active Protocol: Document 03/31/22 10:20 LRN (Rec: 03/31/22 11:35 LRN [id number]) Deep Tendon Reflex & Clonus Assessment Deep Tendon Reflex Right Achilles Deep Tendon Reflex 0 Absent Left Achilles Deep Tendon Reflex 0 Absent PT-OP-J Posture/Palpation/Skin Start: 03/14/22 11:17 Freq: Status: Active Protocol: Document 03/23/22 13:03 LRN (Rec: 03/23/22 14:10 LRN [id number]) Posture Evaluation Position Standing Head/C-Spine Posture Forward Head Shoulder Posture (L) Elevated Knee Posture (L) Excess Flexion Comments Posture Comments Trunk shift to R. R shoulder is low, sacrum is R sidebent and spine appears to be in mild C-curve with apex on the left. L knee slightly bent. Pt feels her L leg is long. Palpation Assessment Location L knee Palpation Location No area of tenderness in sitting. L hip Palpation Location ASIS's Palpation Details L ASIS is more anterior in supine. Supine>Longsit: L leg becomes slightly longer. PSIS is posterior. PT-OP-K Range of Motion Start: 03/14/22 11:17 Freq: Status: Active Protocol: Document 05/01/22 10:31 LRN (Rec: 05/01/22 11:32 LRN [id number]) Hip Goniometric Range of Motion Hip Right Passive Testing Position Supine Internal Rotation 22 External Rotation 30 Left Passive Testing Position Supine Internal Rotation 10 External Rotation 15 PT-OP-M Strength Start: 03/14/22 11:17 Freq: Status: Active Protocol: Document 04/10/22 10:33 LRN (Rec: 04/10/22 11:18 LRN [id number]) Hip Strength Hip Manual Muscle Testing Right Flexion (L2) 3+ Fair+ Comments Pt not able to tolerate lying on L hip; therefore not able to formally assess hip AB. Left Flexion (L2) 3 Fair Abduction 3- Fair- Comments Able to lift leg to neurtral. PT-OP-Q Treatments Start: 03/14/22 11:17 Freq: Status: Active Protocol: Document 05/08/22 10:35 LRN (Rec: 05/08/22 11:22 LRN [id number]) Therapeutic Exercises Standing Exercises Stairs Standing Exercise Name Use of Railing: Ascend: R step to step; Descend Step over step Reps/Minutes 2x IT Band stretch Standing Exercise Name IT band stretch Side bilateral Reps/Minutes 10' Comments Much training for proper movement for stretch. VMO heel stap/squat Standing Exercise Name VMO heel tap/squat Side left Reps/Minutes 20x each Comments Extra time for training and cuing for correct positioning Hip AB Standing Exercise Name Active AB strengthening Side left Equipment Used Hand support royer sides on countertop Reps/Minutes 10x Comments Posture w/LLE lift (req'd cue asst L hip), good stability w/ RLE lift. Self-Care/Home Management Treatment Education Patient Education Home Exercise Program Other Education Reviewed with pt her ability to walk to mailbox and back with tolerable pain. Discussed pt goal for walking to [facility] with tolerable pain. 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 Activities Self-Care/Home Management Activities Modified HEP: single BKFO w/ TB to > Royer BKFO w/o TB, & SLR to 15 reps at each angle (neutral and 30 deg's ER). Pt given copy of Goals. PT-OP-T Assessment and Plan Start: 03/14/22 11:17 Freq: Status: Active Protocol: Document 05/08/22 10:35 LRN (Rec: 05/08/22 11:22 LRN [id number]) Physical Therapy Assessment Rehab Potential Rehabilitation Potential Good Evaluation Complexity Number of Personal Factors/Comorbidities 1-2 Number of Body Systems Impaired 4 or More Clinical Presentation at Evaluation Evolving Impairments Impairments Activity Tolerance,Gait,Pain, Posture,ROM,Strength Goals Three Impairment Decreased ability to walk due to L hip/knee pain. Impairment Pain in L hip/knee walking downhill to mailbox and back with pain 4/10. Pt not able to walk to [facility] with tolerable pain. Short Term Goal (STG) Pt will be able to walk downhill to mailbox without pain and tolerable pain on return (<4/10). 05/01/22: Walks to mailbox without pain and back with pain 3-4/10. 05/08/22: Walk to mailbox and a little farther w/o pain and then back with 3/10 pain. STG Duration 05/09/22 (05/07/22: MET GOAL) Flour Worker Goal (LTG) Pt will be able to tolerate walking from [facility] to [facility] with tolerable pain (<4 /10) 05/01/22: Pt not able to walk to [facility] from home. 05/08/22: Walking past mailbox and back. LTG Duration 06/21/22 (05/08/22: Progressing) Two Impairment Decreased function. Impairment LEFS score of 39, (40-59% impaired, score 32-47). Pt not able to walk on level and inclines/declines combined with tolerable pain. Short Term Goal (STG) Pt will be able to walk on level and inclines with tolerable pain. STG Duration 05/09/22 (05/08/22: MET GOAL) Mcc Goal (LTG) Improve function per LEFS score > 47 (20-39% impaired, score 48-62). 05/08/22: LEFS score 48 (20-39 % impaired, score 48-62) LTG Duration 06/21/22 (05/08/22: Progressing) One Impairment Lacks appropriate self care HEP. Short Term Goal (STG) Pt will be educated in proper nighttime and daytime (sit, stand) posture. STG Duration 03/30/22 (04/03/22: MET GOAL) Mcc Goal (LTG) Pt will be independent with a self care HEP. 04/03/22: HEP reviewed: LE neural/hamstring stretch, Fig 4, Piriformis, Internal roll of hip for stretch; VMO strengthening of SLR & step ups. 04/07/22: HEP issued: Sitting hip ER/IR/LE neural stretch. 04/10/22: HEP issued: Hip AB in sidelie, BKFO in supine, & hold on Clamshell until hip AB strength is improved. 04/17/22: HEP: Standing VMO heel tap squats & IT band stretch, hip AB and sidestepping. LTG Duration 06/21/22 (04/17/22: Progressed ). Assessment Summary Assessment Norma has made good progress with therapy and has improved notably in her function and walking ability. She has also shown some improvement in hip mobility. She is doing her HEP but requires use of handouts to recall exercises, but she is very diligent in doing her exercises. She would like to continue therapy with hopes of returning to walking longer distances regardless of season change from fall to winter. I believe the pt has potential to improve; therefore recommend continued skilled physical therapy to achieve the above stated goals. Physical Therapy Plan Frequency and Duration Frequency of Treatment 1x/Week Plan of Care Start Date 03/23/22 Plan of Care End Date 06/21/22 Therapeutic Interventions Therapeutic Interventions Aquatic Therapy,Gait Training, Home Exercise Program,Joint Mobilizations,Manual Therapy, Neuromuscular Re-education, Patient/Caregiver Education, Self-Care/Home Management,Soft Tissue Mobilization, Therapeutic Activities, Therapeutic Exercises Modalities Cold Pack/Ice Massage,Hot Packs Next Visit Focus/Plan Next Note Type Treatment Note Next Visit Plan CAUTION: Modalities of MH/Ice only due to Breast CA history . Add in clinic: JMT to L hip, walking tolerance for incline/ decline (?try TM or outside), general strengthen L>R hip, and progress core stability strengthening (generally and for support for scoliosis). Monitor L hip pain with ability to walk to[facility]from [facility]. Manual Correct Sacral Rot as needed. POC: Improve L>R Hip PROM. EXER strengthening of L LE and core/pelvic stabilization.
--- NOTE | 2022-05-08 18:12 | PT.OPPOC ---
Physical, Occupational & Speech Therapy At [facility] Current Diagnoses Unilateral primary osteoarthritis, left hip (05/08/22) Unilateral primary osteoarthritis, left knee (05/08/22) Visit Care Team Role Provider Type Lois Bowers MD Family Provider Physician Primary Care Provider Specialty: Family Practice Address: [address] [place] [address], [facility] [place], [address] Email: [email or web address] Donny Unger MD Attending Provider Non-Staff Referring Provider Specialty: Orthopedic Surgery Address: [address] [place] [address], [place], [address] Email: Plan Of Care PT-OP-T Assessment and Plan Start: 03/14/22 11:17 Freq: Status: Active Protocol: Document 05/08/22 10:35 LRN (Rec: 05/08/22 11:22 LRN [id number]) Physical Therapy Assessment Rehab Potential Rehabilitation Potential Good Evaluation Complexity Number of Personal Factors/Comorbidities 1-2 Number of Body Systems Impaired 4 or More Clinical Presentation at Evaluation Evolving Impairments Impairments Activity Tolerance,Gait,Pain, Posture,ROM,Strength Goals Three Impairment Decreased ability to walk due to L hip/knee pain. Impairment Pain in L hip/knee walking downhill to mailbox and back with pain 4/10. Pt not able to walk to [facility] from home with tolerable pain. Short Term Goal (STG) Pt will be able to walk downhill to mailbox without pain and tolerable pain on return (<4/10). 05/01/22: Walks to mailbox without pain and back with pain 3-4/10. 05/08/22: Walk to mailbox and a little farther w/o pain and then back with 3/10 pain. STG Duration 05/09/22 (05/07/22: MET GOAL) Halfway Goal (LTG) Pt will be able to tolerate walking from home to the [facility] with tolerable pain (<4 /10) 05/01/22: Pt not able to walk to [facility] from home. 05/08/22: Walking past mailbox and back. LTG Duration 06/21/22 (05/08/22: Progressing) Two Impairment Decreased function. Impairment LEFS score of 39, (40-59% impaired, score 32-47). Pt not able to walk on level and inclines/declines combined with tolerable pain. Short Term Goal (STG) Pt will be able to walk on level and inclines with tolerable pain. STG Duration 05/09/22 (05/08/22: MET GOAL) Paradi Operator Goal (LTG) Improve function per LEFS score > 47 (20-39% impaired, score 48-62). 05/08/22: LEFS score 48 (20-39 % impaired, score 48-62) LTG Duration 06/21/22 (05/08/22: Progressing) One Impairment Lacks appropriate self care HEP. Short Term Goal (STG) Pt will be educated in proper nighttime and daytime (sit, stand) posture. STG Duration 03/30/22 (04/03/22: MET GOAL) Halfway Goal (LTG) Pt will be independent with a self care HEP. 04/03/22: HEP reviewed: LE neural/hamstring stretch, Fig 4, Piriformis, Internal roll of hip for stretch; VMO strengthening of SLR & step ups. 04/07/22: HEP issued: Sitting hip ER/IR/LE neural stretch. 04/10/22: HEP issued: Hip AB in sidelie, BKFO in supine, & hold on Clamshell until hip AB strength is improved. 04/17/22: HEP: Standing VMO heel tap squats & IT band stretch, hip AB and sidestepping. LTG Duration 06/21/22 (04/17/22: Progressed ). Assessment Summary Assessment Norma has made good progress with therapy and has improved notably in her function and walking ability. She has also shown some improvement in hip mobility. She is doing her HEP but requires use of handouts to recall exercises, but she is very diligent in doing her exercises. She would like to continue therapy with hopes of returning to walking longer distances regardless of season change from fall to winter. I believe the pt has potential to improve; therefore recommend continued skilled physical therapy to achieve the above stated goals. Physical Therapy Plan Frequency and Duration Frequency of Treatment 1x/Week Plan of Care Start Date 03/23/22 Plan of Care End Date 06/21/22 Therapeutic Interventions Therapeutic Interventions Aquatic Therapy,Gait Training, Home Exercise Program,Joint Mobilizations,Manual Therapy, Neuromuscular Re-education, Patient/Caregiver Education, Self-Care/Home Management,Soft Tissue Mobilization, Therapeutic Activities, Therapeutic Exercises Modalities Cold Pack/Ice Massage,Hot Packs Next Visit Focus/Plan Next Note Type Treatment Note Next Visit Plan CAUTION: Modalities of MH/Ice only due to Breast CA history . Add in clinic: JMT to L hip, walking tolerance for incline/ decline (?try TM or outside), general strengthen L>R hip, and progress core stability strengthening (generally and for support for scoliosis). Monitor L hip pain with ability to walk to/from [facility]. Manual Correct Sacral Rot as needed. POC: Improve L>R Hip PROM. EXER strengthening of L LE and core/pelvic stabilization. Plan of Care Dates Plan of Care Start Date 03/23/22 Plan of Care End Date 06/21/22 Electronically Signed by: Magali Arellano, PT 05/08/22 1855 If you are in agreement with this Plan of Care, please return a signed and dated copy. I have reviewed this Plan of Care and certify that the skilled therapy services above are required to meet the patient?s needs. Physician Signature Date Printed Name and Credentials Clinical Instructor Signature Printed Name and Credentials
--- NOTE | 2022-05-15 16:22 | PT.OTN ---
Current Diagnoses Unilateral primary osteoarthritis, left hip (05/15/22) Unilateral primary osteoarthritis, left knee (05/15/22) Physical Therapy Treatment Note PT-OP-A Visit Information Start: 03/14/22 11:17 Freq: Status: Active Protocol: Document 05/15/22 10:33 LRN (Rec: 05/15/22 11:17 LRN [id number]) Out-Patient Physical Therapy Visit Information Visit Information Visit Type Treatment Note Visit Start Time 10:33 Visit Stop Time 11:13 Total Visit Minutes 40 Visit Number 11 Evaluation Information Evaluation Date 03/23/22 Precautions Precautions Breast CA history. Memory loss, arthritis, hypothyroid. PT-OP-B Current Condition Start: 03/14/22 11:17 Freq: Status: Active Protocol: Document 03/23/22 13:03 LRN (Rec: 03/23/22 14:10 LRN [id number]) Current Condition History of Current Condition Onset Date Couple months ago. Current Complaints L hip and knee pain. History of Current Condition Having memory problems. Not able to use pain meds (arnica cream) due to A.Fib. In past, took a pain pill but is concerned meds can take her into A. Fib; therefore she is not taking any meds for L sided pain. Walks daily 1.5 miles but a year ago walked a lot further. Pt having to slit the L leg opening of her underwear for comfort because it feels too tight around the leg. Pt tends to sit with her R knee crossed over her L knee Prior Treatments and Tests No. X-rays by Dr. Unger indicated pain due to arthritis. Treatment Goals Patient/Caregiver Goals Pt goals: Walk downhill to mailbox without pain and tolerable pain on return (<4/10). Walk on flat and hill with tolerable pain. Walk to [facility] from home with tolerable pain. Personal Factors Other Personal Factors That May Effect Memory problems. Therapy/Recovery PT-OP-C Subjective Start: 03/14/22 11:17 Freq: Status: Active Protocol: Document 05/15/22 10:33 LRN (Rec: 05/15/22 11:17 LRN [id number]) OP-PT Subjective Patient Comments Patient Comments States she has people coming to the house, so would like to be in PT minimal time. States she is more today due to working inside house. Having trouble getting up/down from chair. Improved walking on the flat, can walk longer without having to lean on her walking stick as much. Can go to mailbox with no problem. PT-OP-G Mobility & Gait Start: 03/14/22 11:17 Freq: Status: Active Protocol: Document 03/23/22 13:03 LRN (Rec: 03/23/22 14:10 LRN [id number]) OP Gait Assessment Gait Gait Assistance Required: Independent Able to Maintain Weight Bearing Status Yes During Gait Assistive Devices Assistive Device Straight Cane Gait Deviations General Gait Pattern Decreased Stride Length,Flexed Trunk,Lateral Trunk Lean, Narrow Based Gait Factors Limiting Gait Function Factors Limiting Gait Function Decreased Activity Tolerance, Decreased Strength,Pain,Poor Balance Comments Gait Comments Straight cane is actually a straight walking stick on the R side. Pt leans to R with gait. With cane the steps lengths are short but equal. Without cane pt take longer step with LLE. PT-OP-H Neuro Start: 03/14/22 11:17 Freq: Status: Active Protocol: Document 03/31/22 10:20 LRN (Rec: 03/31/22 11:35 LRN [id number]) Deep Tendon Reflex & Clonus Assessment Deep Tendon Reflex Right Achilles Deep Tendon Reflex 0 Absent Left Achilles Deep Tendon Reflex 0 Absent PT-OP-J Posture/Palpation/Skin Start: 03/14/22 11:17 Freq: Status: Active Protocol: Document 03/23/22 13:03 LRN (Rec: 03/23/22 14:10 LRN [id number]) Posture Evaluation Position Standing Head/C-Spine Posture Forward Head Shoulder Posture (L) Elevated Knee Posture (L) Excess Flexion Comments Posture Comments Trunk shift to R. R shoulder is low, sacrum is R sidebent and spine appears to be in mild C-curve with apex on the left. L knee slightly bent. Pt feels her L leg is long. Palpation Assessment Location L knee Palpation Location No area of tenderness in sitting. L hip Palpation Location ASIS's Palpation Details L ASIS is more anterior in supine. Supine>Longsit: L leg becomes slightly longer. PSIS is posterior. PT-OP-K Range of Motion Start: 03/14/22 11:17 Freq: Status: Active Protocol: Document 05/01/22 10:31 LRN (Rec: 05/01/22 11:32 LRN [id number]) Hip Goniometric Range of Motion Hip Right Passive Testing Position Supine Internal Rotation 22 External Rotation 30 Left Passive Testing Position Supine Internal Rotation 10 External Rotation 15 PT-OP-M Strength Start: 03/14/22 11:17 Freq: Status: Active Protocol: Document 04/10/22 10:33 LRN (Rec: 04/10/22 11:18 LRN [id number]) Hip Strength Hip Manual Muscle Testing Right Flexion (L2) 3+ Fair+ Comments Pt not able to tolerate lying on L hip; therefore not able to formally assess hip AB. Left Flexion (L2) 3 Fair Abduction 3- Fair- Comments Able to lift leg to neurtral. PT-OP-Q Treatments Start: 03/14/22 11:17 Freq: Status: Active Protocol: Document 05/15/22 10:33 LRN (Rec: 05/15/22 11:17 LRN [id number]) Therapeutic Exercises Supine Exercises BKFO Supine Exercise Name Single BKFO - keeping symmetrical mvmt Side bilateral Reps/Minutes 10x 3 Comments Cuing to keep pelvis stable and hold LLE into ER Piriformis stretch Supine Exercise Name Knee to opp shoulder Side left Reps/Minutes 60SH x 1 Comments ROM taken Lateral Hip stretch Supine Exercise Name Lateral Hip stretch Side bilateral Equipment Used GB to assist w/stretch Reps/Minutes 60 SH x 1 each Comments Extra time for teaching and finding max tolerated stretch Hip IR stretching Supine Exercise Name IT band type stretch-crossed legs w/top leg pushing bottom leg down Side bilateral Equipment Used GB to assist w/stretch and return to start position. Reps/Minutes 60 SH 1x each Comments Extra time for teaching and finding max tolerated stretch Hip ER stretching Supine Exercise Name Fig 4 (L foot on R knee) Side left Reps/Minutes 60 SH x 1 Comments ROM taken LE neural/hamstring stretch Supine Exercise Name LE neural/hamstring stretch Side bilateral Reps/Minutes 4' Comments Extra time for determining max tolerated stretch position Sidelying Exercises L Clamshell Sidelying Exercise Name Clamshell with end-range assist Side left Reps/Minutes 6' Comments Extra time to keep back stable . Manual Therapy Treatment Soft Tissue Mobilization ARON L IT BAnd Body Location Stretch L IT Band Mobilization Type Other Intensity/Depth Moderate Body Position Sidelie Self-Care/Home Management Treatment Education Other Education Brief discussion of supplements pt is taking. Discussed importance of ex, sleep, nutrition and hydration . PT-OP-T Assessment and Plan Start: 03/14/22 11:17 Freq: Status: Active Protocol: Document 05/15/22 10:33 LRN (Rec: 05/15/22 11:17 LRN [id number]) Physical Therapy Assessment Goals Three Impairment Decreased ability to walk due to L hip/knee pain. Impairment Pain in L hip/knee walking downhill to mailbox and back with pain 4/10. Pt not able to walk to [facility] from home with tolerable pain. Short Term Goal (STG) Pt will be able to walk downhill to mailbox without pain and tolerable pain on return (<4/10). 05/01/22: Walks to mailbox without pain and back with pain 3-4/10. 05/08/22: Walk to mailbox and a little farther w/o pain and then back with 3/10 pain. STG Duration 05/09/22 (05/07/22: MET GOAL) Mcc Goal (LTG) Pt will be able to tolerate walking from home to the [facility] with tolerable pain (<4 /10) 05/01/22: Pt not able to walk to [facility] from home. 05/08/22: Walking past mailbox and back. LTG Duration 06/21/22 (05/08/22: Progressing) Two Impairment Decreased function. Impairment LEFS score of 39, (40-59% impaired, score 32-47). Pt not able to walk on level and inclines/declines combined with tolerable pain. Short Term Goal (STG) Pt will be able to walk on level and inclines with tolerable pain. STG Duration 05/09/22 (05/08/22: MET GOAL) Buggy Ladle Tender Goal (LTG) Improve function per LEFS score > 47 (20-39% impaired, score 48-62). 05/08/22: LEFS score 48 (20-39 % impaired, score 48-62) LTG Duration 06/21/22 (05/08/22: Progressing) One Impairment Lacks appropriate self care HEP. Short Term Goal (STG) Pt will be educated in proper nighttime and daytime (sit, stand) posture. STG Duration 03/30/22 (04/03/22: MET GOAL) Buggy Ladle Tender Goal (LTG) Pt will be independent with a self care HEP. 04/03/22: HEP reviewed: LE neural/hamstring stretch, Fig 4, Piriformis, Internal roll of hip for stretch; VMO strengthening of SLR & step ups. 04/07/22: HEP issued: Sitting hip ER/IR/LE neural stretch. 04/10/22: HEP issued: Hip AB in sidelie, BKFO in supine, & hold on Clamshell until hip AB strength is improved. 04/17/22: HEP: Standing VMO heel tap squats & IT band stretch, hip AB and sidestepping. LTG Duration 06/21/22 (04/17/22: Progressed ). Assessment Summary Assessment Pt appears to have slightly greater L hip mobility. She is now able to sidelie for L clamshell and L assisted hip AB strengthening without c/o hip pain. Pt sore after therapy, but no significant change in gait s/p therapy. Physical Therapy Plan Frequency and Duration Frequency of Treatment 1x/Week Plan of Care Start Date 03/23/22 Plan of Care End Date 06/21/22 Next Visit Focus/Plan Next Note Type Treatment Note Next Visit Plan CAUTION: Modalities of MH/Ice only due to Breast CA history . Try gentle JMT to L hip; add in clinic: walking tolerance for incline/decline (?try TM or outside), Stretch IT Band, Strengthen L>R hip (ER, AB) and general ex; strengthen VMO , and progress core stability strengthening (generally and for support for scoliosis). Monitor L hip pain with ability to walk to/from [facility] Center. Manual Correct Sacral Rot as needed. POC: Improve L>R Hip PROM. Strengthening of L LE and core /pelvic stabilization.
--- NOTE | 2022-05-22 14:25 | PT.OTN ---
Current Diagnoses Unilateral primary osteoarthritis, left hip (05/22/22) Unilateral primary osteoarthritis, left knee (05/22/22) Physical Therapy Treatment Note PT-OP-A Visit Information Start: 03/14/22 11:17 Freq: Status: Active Protocol: Document 05/22/22 10:33 LRN (Rec: 05/22/22 11:21 LRN [id number]) Out-Patient Physical Therapy Visit Information Visit Information Visit Type Treatment Note Visit Note 2 after PN Visit Start Time 10:33 Visit Stop Time 11:13 Total Visit Minutes 40 Visit Number 12 Evaluation Information Evaluation Date 03/23/22 Precautions Precautions Breast CA history. Memory loss, arthritis, hypothyroid. PT-OP-B Current Condition Start: 03/14/22 11:17 Freq: Status: Active Protocol: Document 03/23/22 13:03 LRN (Rec: 03/23/22 14:10 LRN [id number]) Current Condition History of Current Condition Onset Date Couple months ago. Current Complaints L hip and knee pain. History of Current Condition Having memory problems. Not able to use pain meds (arnica cream) due to A.Fib. In past, took a pain pill but is concerned meds can take her into A. Fib; therefore she is not taking any meds for L sided pain. Walks daily 1.5 miles but a year ago walked a lot further. Pt having to slit the L leg opening of her underwear for comfort because it feels too tight around the leg. Pt tends to sit with her R knee crossed over her L knee Prior Treatments and Tests No. X-rays by Dr. Unger indicated pain due to arthritis. Treatment Goals Patient/Caregiver Goals Pt goals: Walk downhill to mailbox without pain and tolerable pain on return (<4/10). Walk on flat and hill with tolerable pain. Walk to [facility] Center from home with tolerable pain. Personal Factors Other Personal Factors That May Effect Memory problems. Therapy/Recovery PT-OP-C Subjective Start: 03/14/22 11:17 Freq: Status: Active Protocol: Document 05/22/22 10:33 LRN (Rec: 05/22/22 11:21 LRN [id number]) OP-PT Subjective Patient Comments Patient Comments States she has not walked to mailbox, but will do it this weekend. States she plans to try to walk to [facility]. PT-OP-G Mobility & Gait Start: 03/14/22 11:17 Freq: Status: Active Protocol: Document 03/23/22 13:03 LRN (Rec: 03/23/22 14:10 LRN [id number]) OP Gait Assessment Gait Gait Assistance Required: Independent Able to Maintain Weight Bearing Status Yes During Gait Assistive Devices Assistive Device Straight Cane Gait Deviations General Gait Pattern Decreased Stride Length,Flexed Trunk,Lateral Trunk Lean, Narrow Based Gait Factors Limiting Gait Function Factors Limiting Gait Function Decreased Activity Tolerance, Decreased Strength,Pain,Poor Balance Comments Gait Comments Straight cane is actually a straight walking stick on the R side. Pt leans to R with gait. With cane the steps lengths are short but equal. Without cane pt take longer step with LLE. PT-OP-H Neuro Start: 03/14/22 11:17 Freq: Status: Active Protocol: Document 03/31/22 10:20 LRN (Rec: 03/31/22 11:35 LRN [id number]) Deep Tendon Reflex & Clonus Assessment Deep Tendon Reflex Right Achilles Deep Tendon Reflex 0 Absent Left Achilles Deep Tendon Reflex 0 Absent PT-OP-J Posture/Palpation/Skin Start: 03/14/22 11:17 Freq: Status: Active Protocol: Document 03/23/22 13:03 LRN (Rec: 03/23/22 14:10 LRN [id number]) Posture Evaluation Position Standing Head/C-Spine Posture Forward Head Shoulder Posture (L) Elevated Knee Posture (L) Excess Flexion Comments Posture Comments Trunk shift to R. R shoulder is low, sacrum is R sidebent and spine appears to be in mild C-curve with apex on the left. L knee slightly bent. Pt feels her L leg is long. Palpation Assessment Location L knee Palpation Location No area of tenderness in sitting. L hip Palpation Location ASIS's Palpation Details L ASIS is more anterior in supine. Supine>Longsit: L leg becomes slightly longer. PSIS is posterior. PT-OP-K Range of Motion Start: 03/14/22 11:17 Freq: Status: Active Protocol: Document 05/01/22 10:31 LRN (Rec: 05/01/22 11:32 LRN [id number]) Hip Goniometric Range of Motion Hip Right Passive Testing Position Supine Internal Rotation 22 External Rotation 30 Left Passive Testing Position Supine Internal Rotation 10 External Rotation 15 PT-OP-M Strength Start: 03/14/22 11:17 Freq: Status: Active Protocol: Document 04/10/22 10:33 LRN (Rec: 04/10/22 11:18 LRN [id number]) Hip Strength Hip Manual Muscle Testing Right Flexion (L2) 3+ Fair+ Comments Pt not able to tolerate lying on L hip; therefore not able to formally assess hip AB. Left Flexion (L2) 3 Fair Abduction 3- Fair- Comments Able to lift leg to neurtral. PT-OP-Q Treatments Start: 03/14/22 11:17 Freq: Status: Active Protocol: Document 05/22/22 10:33 LRN (Rec: 05/22/22 11:21 LRN [id number]) Therapeutic Exercises Sitting Exercises Hip ER/IR Sitting Exercise Name Active hip ER/IR Side bilateral Reps/Minutes 4' Comments CP to L hip during ex. Standing Exercises IT Band stretch Standing Exercise Name IT band stretch Side bilateral Reps/Minutes 3' VMO heel stap/squat Standing Exercise Name VMO heel tap/squat, L>R Side bilateral Reps/Minutes 15x 2 each Comments Extra time for training and cuing for correct positioning Gait Training Gait Activity Gait on inclines/declines Description Gait on mild incline/decline, outside & on TM Device Used 1 walking stick outside, & TM rails Level of Assistance SBA/GB Surface Level Distance/Duration 15' Treatment Focus Decrease in wgt through LE on heel strike Comments TM statically @ lev 1 incline Gait on level Description Gait on level Device Used None Surface Level Distance/Duration 12' Treatment Focus Proper gait posture, even step lengths Comments Pt cued for small steps and good wgt shift. PT-OP-T Assessment and Plan Start: 03/14/22 11:17 Freq: Status: Active Protocol: Document 05/22/22 10:33 LRN (Rec: 05/22/22 11:21 LRN [id number]) Physical Therapy Assessment Goals Three Impairment Decreased ability to walk due to L hip/knee pain. Impairment Pain in L hip/knee walking downhill to mailbox and back with pain 4/10. Pt not able to walk to [facility] from home with tolerable pain. Short Term Goal (STG) Pt will be able to walk downhill to mailbox without pain and tolerable pain on return (<4/10). 05/01/22: Walks to mailbox without pain and back with pain 3-4/10. 05/08/22: Walk to mailbox and a little farther w/o pain and then back with 3/10 pain. STG Duration 05/09/22 (05/07/22: MET GOAL) Senior Care Goal (LTG) Pt will be able to tolerate walking from home to the [facility] with tolerable pain (<4 /10) 05/01/22: Pt not able to walk to [facility] from home. 05/08/22: Walking past mailbox and back. LTG Duration 06/21/22 (05/08/22: Progressing) Two Impairment Decreased function. Impairment LEFS score of 39, (40-59% impaired, score 32-47). Pt not able to walk on level and inclines/declines combined with tolerable pain. Short Term Goal (STG) Pt will be able to walk on level and inclines with tolerable pain. STG Duration 05/09/22 (05/08/22: MET GOAL) Senior Care Goal (LTG) Improve function per LEFS score > 47 (20-39% impaired, score 48-62). 05/08/22: LEFS score 48 (20-39 % impaired, score 48-62) LTG Duration 06/21/22 (05/08/22: Progressing) One Impairment Lacks appropriate self care HEP. Short Term Goal (STG) Pt will be educated in proper nighttime and daytime (sit, stand) posture. STG Duration 03/30/22 (04/03/22: MET GOAL) Senior Care Goal (LTG) Pt will be independent with a self care HEP. 04/03/22: HEP reviewed: LE neural/hamstring stretch, Fig 4, Piriformis, Internal roll of hip for stretch; VMO strengthening of SLR & step ups. 04/07/22: HEP issued: Sitting hip ER/IR/LE neural stretch. 04/10/22: HEP issued: Hip AB in sidelie, BKFO in supine, & hold on Clamshell until hip AB strength is improved. 04/17/22: HEP: Standing VMO heel tap squats & IT band stretch, hip AB and sidestepping. LTG Duration 06/21/22 (04/17/22: Progressed ). Assessment Summary Assessment Pt needed only one correction with her HEP and modification of 1 exercise. She appears to have a good understanding of her home IT Band stretch. Pt did well with outside slight incline/decline outside. After walking and use of CP to L hip, pt did not have complaints of increased L hip pain. Physical Therapy Plan Frequency and Duration Frequency of Treatment 1x/Week Plan of Care Start Date 03/23/22 Plan of Care End Date 06/21/22 Next Visit Focus/Plan Next Note Type Treatment Note Next Visit Plan CAUTION: Modalities of MH/Ice only due to Breast CA history . DC in 3 visits. ?Try gentle JMT to L hip; Assess pt walking tolerance for incline/decline, Strengthen L>R hip (ER, AB), VMO, and general LE strengthening. Progress core stability strengthening (generally and for support for scoliosis). Monitor L hip pain with ability to walk to/from [facility]. Manual Correct Sacral Rot as needed. POC: Improve L>R Hip PROM. Strengthening of L LE and core /pelvic stabilization.
--- NOTE | 2022-06-05 12:36 | PT.OTN ---
Current Diagnoses Unilateral primary osteoarthritis, left hip (06/05/22) Unilateral primary osteoarthritis, left knee (06/05/22) Physical Therapy Treatment Note PT-OP-A Visit Information Start: 03/14/22 11:17 Freq: Status: Active Protocol: Document 06/05/22 10:34 LRN (Rec: 06/05/22 11:23 LRN [id number]) Out-Patient Physical Therapy Visit Information Visit Information Visit Type Treatment Note Visit Note 3 after PN Visit Start Time 10:34 Visit Stop Time 11:19 Total Visit Minutes 45 Visit Number 13 Evaluation Information Evaluation Date 03/23/22 Precautions Precautions Breast CA history. Memory loss, arthritis, hypothyroid. PT-OP-B Current Condition Start: 03/14/22 11:17 Freq: Status: Active Protocol: Document 03/23/22 13:03 LRN (Rec: 03/23/22 14:10 LRN [id number]) Current Condition History of Current Condition Onset Date Couple months ago. Current Complaints L hip and knee pain. History of Current Condition Having memory problems. Not able to use pain meds (arnica cream) due to A.Fib. In past, took a pain pill but is concerned meds can take her into A. Fib; therefore she is not taking any meds for L sided pain. Walks daily 1.5 miles but a year ago walked a lot further. Pt having to slit the L leg opening of her underwear for comfort because it feels too tight around the leg. Pt tends to sit with her R knee crossed over her L knee Prior Treatments and Tests No. X-rays by Dr. Unger indicated pain due to arthritis. Treatment Goals Patient/Caregiver Goals Pt goals: Walk downhill to mailbox without pain and tolerable pain on return (<4/10). Walk on flat and hill with tolerable pain. Walk to [facility] from home with tolerable pain. Personal Factors Other Personal Factors That May Effect Memory problems. Therapy/Recovery PT-OP-C Subjective Start: 03/14/22 11:17 Freq: Status: Active Protocol: Document 06/05/22 10:34 LRN (Rec: 06/05/22 11:23 LRN [id number]) OP-PT Subjective Patient Comments Patient Comments States she has had more arthritic pain with the change in the weather. Has been doing her exercises because walking outside is therapeutic . PT-OP-G Mobility & Gait Start: 03/14/22 11:17 Freq: Status: Active Protocol: Document 03/23/22 13:03 LRN (Rec: 03/23/22 14:10 LRN [id number]) OP Gait Assessment Gait Gait Assistance Required: Independent Able to Maintain Weight Bearing Status Yes During Gait Assistive Devices Assistive Device Straight Cane Gait Deviations General Gait Pattern Decreased Stride Length,Flexed Trunk,Lateral Trunk Lean, Narrow Based Gait Factors Limiting Gait Function Factors Limiting Gait Function Decreased Activity Tolerance, Decreased Strength,Pain,Poor Balance Comments Gait Comments Straight cane is actually a straight walking stick on the R side. Pt leans to R with gait. With cane the steps lengths are short but equal. Without cane pt take longer step with LLE. PT-OP-H Neuro Start: 03/14/22 11:17 Freq: Status: Active Protocol: Document 03/31/22 10:20 LRN (Rec: 03/31/22 11:35 LRN [id number]) Deep Tendon Reflex & Clonus Assessment Deep Tendon Reflex Right Achilles Deep Tendon Reflex 0 Absent Left Achilles Deep Tendon Reflex 0 Absent PT-OP-J Posture/Palpation/Skin Start: 03/14/22 11:17 Freq: Status: Active Protocol: Document 03/23/22 13:03 LRN (Rec: 03/23/22 14:10 LRN [id number]) Posture Evaluation Position Standing Head/C-Spine Posture Forward Head Shoulder Posture (L) Elevated Knee Posture (L) Excess Flexion Comments Posture Comments Trunk shift to R. R shoulder is low, sacrum is R sidebent and spine appears to be in mild C-curve with apex on the left. L knee slightly bent. Pt feels her L leg is long. Palpation Assessment Location L knee Palpation Location No area of tenderness in sitting. L hip Palpation Location ASIS's Palpation Details L ASIS is more anterior in supine. Supine>Longsit: L leg becomes slightly longer. PSIS is posterior. PT-OP-K Range of Motion Start: 03/14/22 11:17 Freq: Status: Active Protocol: Document 05/01/22 10:31 LRN (Rec: 05/01/22 11:32 LRN [id number]) Hip Goniometric Range of Motion Hip Right Passive Testing Position Supine Internal Rotation 22 External Rotation 30 Left Passive Testing Position Supine Internal Rotation 10 External Rotation 15 PT-OP-M Strength Start: 03/14/22 11:17 Freq: Status: Active Protocol: Document 04/10/22 10:33 LRN (Rec: 04/10/22 11:18 LRN [id number]) Hip Strength Hip Manual Muscle Testing Right Flexion (L2) 3+ Fair+ Comments Pt not able to tolerate lying on L hip; therefore not able to formally assess hip AB. Left Flexion (L2) 3 Fair Abduction 3- Fair- Comments Able to lift leg to neurtral. PT-OP-Q Treatments Start: 03/14/22 11:17 Freq: Status: Active Protocol: Document 06/05/22 10:34 LRN (Rec: 06/05/22 11:23 LRN [id number]) Therapeutic Exercises Supine Exercises BKFO Supine Exercise Name Single BKFO - keeping symmetrical mvmt Side bilateral Reps/Minutes 10x 3 Comments Cuing to keep pelvis stable and hold LLE into ER SLR Supine Exercise Name SLR - foot at 12 and 30 deg's ER'd. Side bilateral Equipment Used Shoes on Reps/Minutes 10x 2 Comments Cuing for foot position changes. Piriformis stretch Supine Exercise Name Knee to opp shoulder Side left Reps/Minutes 60SH x 1 Comments ROM taken Lateral Hip stretch Supine Exercise Name Lateral Hip stretch Side bilateral Equipment Used GB to assist w/stretch Reps/Minutes 60 SH x 1 each Comments Extra time for teaching and finding max tolerated stretch LE neural/hamstring stretch Supine Exercise Name LE neural/hamstring stretch Side bilateral Reps/Minutes 4' Comments Extra time for determining max tolerated stretch position Sitting Exercises Trunk flex strengthening Sitting Exercise Name Trunk Flex strengthening-Added to HEP Resistance Lev 1 TB Reps/Minutes 4' Krista trunk SB Sitting Exercise Name Krista trunk SB strengthening- Added to HEP Side bilateral Resistance Lev 1 TB Reps/Minutes 6' Standing Exercises Krista Trunk SB strengthening Standing Exercise Name Lateral step outs with TB held at chest/breast level - Added to HEP Side bilateral Equipment Used Lev 1 TB Reps/Minutes 10x Shallow squat Standing Exercise Name Shallow Squat - added to HEP Side bilateral Equipment Used Railing Reps/Minutes 10x Comments v cuing for limiting fwd translation of knees. Self-Care/Home Management Treatment Education Patient Education Home Exercise Program Activities Self-Care/Home Management Activities Issued & reviewed HEP: Standing squat (posturing and exercise), Trunk flex & krista SB strengthening. Issued: Extra long Lev 1 TB w/ white strap for HEP. PT-OP-T Assessment and Plan Start: 03/14/22 11:17 Freq: Status: Active Protocol: Document 06/05/22 10:34 LRN (Rec: 06/05/22 11:23 LRN [id number]) Physical Therapy Assessment Goals Three Impairment Decreased ability to walk due to L hip/knee pain. Impairment Pain in L hip/knee walking downhill to mailbox and back with pain 4/10. Pt not able to walk to [facility] from home with tolerable pain. Short Term Goal (STG) Pt will be able to walk downhill to mailbox without pain and tolerable pain on return (<4/10). 05/01/22: Walks to mailbox without pain and back with pain 3-4/10. 05/08/22: Walk to mailbox and a little farther w/o pain and then back with 3/10 pain. STG Duration 05/09/22 (05/07/22: MET GOAL) Intensive Care Anaesthetist Goal (LTG) Pt will be able to tolerate walking from home to the [facility] with tolerable pain (<4 /10) 05/01/22: Pt not able to walk to [facility] from home. 05/08/22: Walking past mailbox and back. LTG Duration 06/21/22 (05/08/22: Progressing) Two Impairment Decreased function. Impairment LEFS score of 39, (40-59% impaired, score 32-47). Pt not able to walk on level and inclines/declines combined with tolerable pain. Short Term Goal (STG) Pt will be able to walk on level and inclines with tolerable pain. STG Duration 05/09/22 (05/08/22: MET GOAL) Mcfp Goal (LTG) Improve function per LEFS score > 47 (20-39% impaired, score 48-62). 05/08/22: LEFS score 48 (20-39 % impaired, score 48-62) LTG Duration 06/21/22 (05/08/22: Progressing) One Impairment Lacks appropriate self care HEP. Short Term Goal (STG) Pt will be educated in proper nighttime and daytime (sit, stand) posture. STG Duration 03/30/22 (04/03/22: MET GOAL) Mcfp Goal (LTG) Pt will be independent with a self care HEP. 04/03/22: HEP reviewed: LE neural/hamstring stretch, Fig 4, Piriformis, Internal roll of hip for stretch; VMO strengthening of SLR & step ups. 04/07/22: HEP issued: Sitting hip ER/IR/LE neural stretch. 04/10/22: HEP issued: Hip AB in sidelie, BKFO in supine, & hold on Clamshell until hip AB strength is improved. 04/17/22: HEP: Standing VMO heel tap squats & IT band stretch, hip AB and sidestepping. 06/05/22: HEP issued: Shallow squats, Sitting: trunk flex, Standing: krista trunk SB strengthening (overhead press done in sitting) & side step outs w/TB LTG Duration 06/21/22 (06/05/22: Progressed). Progress Towards Goals Progress Towards Goals Progressing Toward Goals Progress Comments Progressed HEP. Assessment Summary Assessment Pt appears to have mastered her current HEP; therefore addition of core strengthening and standing VMO ex's were well received. Pt wanting to come back for ex review and possible DC to HEP. She is wanting to progress her ability to walk incline/ declines and for long distance over time on her HEP. Pt appears emotionally down as she notes may be due to change in weather from jovon to dark and rainy. Physical Therapy Plan Frequency and Duration Frequency of Treatment 1x/Week Plan of Care Start Date 03/23/22 Plan of Care End Date 06/21/22 Next Visit Focus/Plan Next Note Type Treatment Note Next Visit Plan CAUTION: Modalities of MH/Ice only due to Breast CA history . DC in 1-2 visits. ?Try gentle JMT to L hip; incline/decline assessment if needed, Progress core stability strengthening-add rotation ( generally and for support for scoliosis). Monitor L hip pain with ability to walk to/from . Center. Manual Correct Sacral Rot as needed. POC: Improve L>R Hip PROM. Strengthening of L LE and core /pelvic stabilization.
--- NOTE | 2022-06-12 12:25 | PT.OTN ---
Current Diagnoses Unilateral primary osteoarthritis, left hip (06/12/22) Unilateral primary osteoarthritis, left knee (06/12/22) Physical Therapy Treatment Note PT-OP-A Visit Information Start: 03/14/22 11:17 Freq: Status: Active Protocol: Document 06/12/22 10:35 LRN (Rec: 06/12/22 11:22 LRN [id number]) Out-Patient Physical Therapy Visit Information Visit Information Visit Type Treatment Note Visit Note 4 after PN Visit Start Time 10:35 Visit Stop Time 11:13 Total Visit Minutes 38 Visit Number 14 Evaluation Information Evaluation Date 03/23/22 Precautions Precautions Breast CA history. Memory loss, arthritis, hypothyroid. PT-OP-B Current Condition Start: 03/14/22 11:17 Freq: Status: Active Protocol: Document 03/23/22 13:03 LRN (Rec: 03/23/22 14:10 LRN [id number]) Current Condition History of Current Condition Onset Date Couple months ago. Current Complaints L hip and knee pain. History of Current Condition Having memory problems. Not able to use pain meds (arnica cream) due to A.Fib. In past, took a pain pill but is concerned meds can take her into A. Fib; therefore she is not taking any meds for L sided pain. Walks daily 1.5 miles but a year ago walked a lot further. Pt having to slit the L leg opening of her underwear for comfort because it feels too tight around the leg. Pt tends to sit with her R knee crossed over her L knee Prior Treatments and Tests No. X-rays by Dr. Unger indicated pain due to arthritis. Treatment Goals Patient/Caregiver Goals Pt goals: Walk downhill to mailbox without pain and tolerable pain on return (<4/10). Walk on flat and hill with tolerable pain. Walk to [facility] from home with tolerable pain. Personal Factors Other Personal Factors That May Effect Memory problems. Therapy/Recovery PT-OP-C Subjective Start: 03/14/22 11:17 Freq: Status: Active Protocol: Document 06/12/22 10:35 LRN (Rec: 06/12/22 11:22 LRN [id number]) OP-PT Subjective Patient Comments Patient Comments Pt states she is no longer having financial issues and can continue therapy indefinitely as needed. Pt feeling more achy and sore with the change in weather. PT-OP-G Mobility & Gait Start: 03/14/22 11:17 Freq: Status: Active Protocol: Document 03/23/22 13:03 LRN (Rec: 03/23/22 14:10 LRN [id number]) OP Gait Assessment Gait Gait Assistance Required: Independent Able to Maintain Weight Bearing Status Yes During Gait Assistive Devices Assistive Device Straight Cane Gait Deviations General Gait Pattern Decreased Stride Length,Flexed Trunk,Lateral Trunk Lean, Narrow Based Gait Factors Limiting Gait Function Factors Limiting Gait Function Decreased Activity Tolerance, Decreased Strength,Pain,Poor Balance Comments Gait Comments Straight cane is actually a straight walking stick on the R side. Pt leans to R with gait. With cane the steps lengths are short but equal. Without cane pt take longer step with LLE. PT-OP-H Neuro Start: 03/14/22 11:17 Freq: Status: Active Protocol: Document 03/31/22 10:20 LRN (Rec: 03/31/22 11:35 LRN [id number]) Deep Tendon Reflex & Clonus Assessment Deep Tendon Reflex Right Achilles Deep Tendon Reflex 0 Absent Left Achilles Deep Tendon Reflex 0 Absent PT-OP-J Posture/Palpation/Skin Start: 03/14/22 11:17 Freq: Status: Active Protocol: Document 03/23/22 13:03 LRN (Rec: 03/23/22 14:10 LRN [id number]) Posture Evaluation Position Standing Head/C-Spine Posture Forward Head Shoulder Posture (L) Elevated Knee Posture (L) Excess Flexion Comments Posture Comments Trunk shift to R. R shoulder is low, sacrum is R sidebent and spine appears to be in mild C-curve with apex on the left. L knee slightly bent. Pt feels her L leg is long. Palpation Assessment Location L knee Palpation Location No area of tenderness in sitting. L hip Palpation Location ASIS's Palpation Details L ASIS is more anterior in supine. Supine>Longsit: L leg becomes slightly longer. PSIS is posterior. PT-OP-K Range of Motion Start: 03/14/22 11:17 Freq: Status: Active Protocol: Document 05/01/22 10:31 LRN (Rec: 05/01/22 11:32 LRN [id number]) Hip Goniometric Range of Motion Hip Right Passive Testing Position Supine Internal Rotation 22 External Rotation 30 Left Passive Testing Position Supine Internal Rotation 10 External Rotation 15 PT-OP-M Strength Start: 03/14/22 11:17 Freq: Status: Active Protocol: Document 04/10/22 10:33 LRN (Rec: 04/10/22 11:18 LRN [id number]) Hip Strength Hip Manual Muscle Testing Right Flexion (L2) 3+ Fair+ Comments Pt not able to tolerate lying on L hip; therefore not able to formally assess hip AB. Left Flexion (L2) 3 Fair Abduction 3- Fair- Comments Able to lift leg to neurtral. PT-OP-Q Treatments Start: 03/14/22 11:17 Freq: Status: Active Protocol: Document 06/12/22 10:35 LRN (Rec: 06/12/22 11:22 LRN [id number]) Therapeutic Exercises Supine Exercises SLR Supine Exercise Name SLR - foot at 12 and 30 deg's ER'd. Side bilateral Equipment Used Shoes on Reps/Minutes 10x 2 Comments Cuing for foot position changes. Sitting Exercises Trunk flex strengthening Sitting Exercise Name Trunk Flex strengthening-Added to HEP Resistance Lev 1 TB Reps/Minutes 4' Krista trunk SB Sitting Exercise Name Overhead press Side bilateral Standing Exercises Overhead press w/core stab Standing Exercise Name Krista trunk SB: Resist on L>R side: Overhead press stabilizing core Side bilateral Reps/Minutes 5 SH x 10 Comments Extra time to determine max tolerated resistance w/ movement Krista Trunk SB strengthening Standing Exercise Name Lateral step outs with TB held at chest/breast level - HEP Side right Equipment Used Lev 1 double TB Reps/Minutes 5 SH x 10 Comments Steps outs to R only after inspecting scolio curve increasing with exer. Shallow squat Standing Exercise Name Shallow Squat - HEP Side bilateral Equipment Used Railing Reps/Minutes 10x Comments v cuing and Xtra time needed for limiting fwd translation of knees. PT-OP-T Assessment and Plan Start: 03/14/22 11:17 Freq: Status: Active Protocol: Document 06/12/22 10:35 LRN (Rec: 06/12/22 11:22 LRN [id number]) Physical Therapy Assessment Goals Three Impairment Decreased ability to walk due to L hip/knee pain. Impairment Pain in L hip/knee walking downhill to mailbox and back with pain 4/10. Pt not able to walk to [facility] from home with tolerable pain. Short Term Goal (STG) Pt will be able to walk downhill to mailbox without pain and tolerable pain on return (<4/10). 05/01/22: Walks to mailbox without pain and back with pain 3-4/10. 05/08/22: Walk to mailbox and a little farther w/o pain and then back with 3/10 pain. STG Duration 05/09/22 (05/07/22: MET GOAL) Processing Manager Goal (LTG) Pt will be able to tolerate walking from home to the [facility] with tolerable pain (<4 /10) 05/01/22: Pt not able to walk to [facility] from home. 05/08/22: Walking past mailbox and back. LTG Duration 06/21/22 (05/08/22: Progressing) Two Impairment Decreased function. Impairment LEFS score of 39, (40-59% impaired, score 32-47). Pt not able to walk on level and inclines/declines combined with tolerable pain. Short Term Goal (STG) Pt will be able to walk on level and inclines with tolerable pain. STG Duration 05/09/22 (05/08/22: MET GOAL) Processing Manager Goal (LTG) Improve function per LEFS score > 47 (20-39% impaired, score 48-62). 05/08/22: LEFS score 48 (20-39 % impaired, score 48-62) LTG Duration 06/21/22 (05/08/22: Progressing) One Impairment Lacks appropriate self care HEP. Short Term Goal (STG) Pt will be educated in proper nighttime and daytime (sit, stand) posture. STG Duration 03/30/22 (04/03/22: MET GOAL) Residential Goal (LTG) Pt will be independent with a self care HEP. 04/03/22: HEP reviewed: LE neural/hamstring stretch, Fig 4, Piriformis, Internal roll of hip for stretch; VMO strengthening of SLR & step ups. 04/07/22: HEP issued: Sitting hip ER/IR/LE neural stretch. 04/10/22: HEP issued: Hip AB in sidelie, BKFO in supine, & hold on Clamshell until hip AB strength is improved. 04/17/22: HEP: Standing VMO heel tap squats & IT band stretch, hip AB and sidestepping. 06/05/22: HEP issued: Shallow squats, Sitting: trunk flex, Standing: krista trunk SB strengthening (overhead press done in sitting) & side step outs w/TB LTG Duration 06/21/22 (06/05/22: Progressed). Assessment Summary Assessment Pt requires much time for review and moves slowly through exercises, trying to avoid any pain. Pt tolerates new ex's well. Today she is more slow to move and having more discomfort with change in weather. Physical Therapy Plan Frequency and Duration Frequency of Treatment 1x/Week Plan of Care Start Date 03/23/22 Plan of Care End Date 06/21/22 Next Visit Focus/Plan Next Note Type Progress Note Next Visit Plan CAUTION: Modalities of MH/Ice only due to Breast CA history . Pt willing to continue therapy due to change in financial status; therefore PN next visit to update POC. ?Try gentle JMT to L hip; incline/decline assessment if needed, Progress core stability strengthening L Upper Paraspinals/R Lower Paraspinals-add rotation ( generally and for support for scoliosis). Monitor L hip pain with ability to walk to/from [facility]. Manual Correct Sacral Rot as needed. POC: Improve L>R Hip PROM. Strengthening of L LE and core /pelvic stabilization.
--- NOTE | 2022-06-19 13:10 | PT.OTN ---
Current Diagnoses Unilateral primary osteoarthritis, left hip (06/19/22) Unilateral primary osteoarthritis, left knee (06/19/22) Physical Therapy Treatment Note PT-OP-A Visit Information Start: 03/14/22 11:17 Freq: Status: Active Protocol: Document 06/19/22 10:36 LRN (Rec: 06/19/22 12:44 LRN [id number]) Out-Patient Physical Therapy Visit Information Visit Information Visit Type Progress Note Visit Start Time 10:36 Visit Stop Time 11:15 Total Visit Minutes 39 Visit Number 15 Evaluation Information Evaluation Date 03/23/22 Precautions Precautions Breast CA history. Memory loss, arthritis, hypothyroid. PT-OP-B Current Condition Start: 03/14/22 11:17 Freq: Status: Active Protocol: Document 03/23/22 13:03 LRN (Rec: 03/23/22 14:10 LRN [id number]) Current Condition History of Current Condition Onset Date Couple months ago. Current Complaints L hip and knee pain. History of Current Condition Having memory problems. Not able to use pain meds (arnica cream) due to A.Fib. In past, took a pain pill but is concerned meds can take her into A. Fib; therefore she is not taking any meds for L sided pain. Walks daily 1.5 miles but a year ago walked a lot further. Pt having to slit the L leg opening of her underwear for comfort because it feels too tight around the leg. Pt tends to sit with her R knee crossed over her L knee Prior Treatments and Tests No. X-rays by Dr. Unger indicated pain due to arthritis. Treatment Goals Patient/Caregiver Goals Pt goals: Walk downhill to mailbox without pain and tolerable pain on return (<4/10). Walk on flat and hill with tolerable pain. Walk to [facility] from home with tolerable pain. Personal Factors Other Personal Factors That May Effect Memory problems. Therapy/Recovery PT-OP-C Subjective Start: 03/14/22 11:17 Freq: Status: Active Protocol: Document 06/19/22 10:36 LRN (Rec: 06/19/22 12:44 LRN [id number]) OP-PT Subjective Patient Comments Patient Comments States the L hip and knee is bothering her. Patient Questionnaires Lower Extremity Functional Scale LEFS Score 45 LEFS Impairment 40 to 59% Impaired (Score 32- 47) PT-OP-G Mobility & Gait Start: 03/14/22 11:17 Freq: Status: Active Protocol: Document 03/23/22 13:03 LRN (Rec: 03/23/22 14:10 LRN [id number]) OP Gait Assessment Gait Gait Assistance Required: Independent Able to Maintain Weight Bearing Status Yes During Gait Assistive Devices Assistive Device Straight Cane Gait Deviations General Gait Pattern Decreased Stride Length,Flexed Trunk,Lateral Trunk Lean, Narrow Based Gait Factors Limiting Gait Function Factors Limiting Gait Function Decreased Activity Tolerance, Decreased Strength,Pain,Poor Balance Comments Gait Comments Straight cane is actually a straight walking stick on the R side. Pt leans to R with gait. With cane the steps lengths are short but equal. Without cane pt take longer step with LLE. PT-OP-H Neuro Start: 03/14/22 11:17 Freq: Status: Active Protocol: Document 03/31/22 10:20 LRN (Rec: 03/31/22 11:35 LRN [id number]) Deep Tendon Reflex & Clonus Assessment Deep Tendon Reflex Right Achilles Deep Tendon Reflex 0 Absent Left Achilles Deep Tendon Reflex 0 Absent PT-OP-J Posture/Palpation/Skin Start: 03/14/22 11:17 Freq: Status: Active Protocol: Document 03/23/22 13:03 LRN (Rec: 03/23/22 14:10 LRN [id number]) Posture Evaluation Position Standing Head/C-Spine Posture Forward Head Shoulder Posture (L) Elevated Knee Posture (L) Excess Flexion Comments Posture Comments Trunk shift to R. R shoulder is low, sacrum is R sidebent and spine appears to be in mild C-curve with apex on the left. L knee slightly bent. Pt feels her L leg is long. Palpation Assessment Location L knee Palpation Location No area of tenderness in sitting. L hip Palpation Location ASIS's Palpation Details L ASIS is more anterior in supine. Supine>Longsit: L leg becomes slightly longer. PSIS is posterior. PT-OP-K Range of Motion Start: 03/14/22 11:17 Freq: Status: Active Protocol: Document 05/01/22 10:31 LRN (Rec: 05/01/22 11:32 LRN [id number]) Hip Goniometric Range of Motion Hip Right Passive Testing Position Supine Internal Rotation 22 External Rotation 30 Left Passive Testing Position Supine Internal Rotation 10 External Rotation 15 PT-OP-M Strength Start: 03/14/22 11:17 Freq: Status: Active Protocol: Document 04/10/22 10:33 LRN (Rec: 04/10/22 11:18 LRN [id number]) Hip Strength Hip Manual Muscle Testing Right Flexion (L2) 3+ Fair+ Comments Pt not able to tolerate lying on L hip; therefore not able to formally assess hip AB. Left Flexion (L2) 3 Fair Abduction 3- Fair- Comments Able to lift leg to neurtral. PT-OP-Q Treatments Start: 03/14/22 11:17 Freq: Status: Active Protocol: Document 06/19/22 10:36 LRN (Rec: 06/19/22 12:44 LRN [id number]) Therapeutic Exercises Sitting Exercises Trunk Rot Sitting Exercise Name Trunk Rot Side bilateral Equipment Used Lev 1 TB Reps/Minutes 7' Comments Extra time to learn mechanics of exercise. Trunk flex strengthening Sitting Exercise Name Trunk Flex strengthening-Added to HEP Resistance Lev 1 TB Reps/Minutes 4' Krista trunk SB Sitting Exercise Name Overhead press Side bilateral Reps/Minutes 7' Comments Extra time to deter if sit vs stand for ex is best tolerated Standing Exercises Overhead press w/core stab Standing Exercise Name Krista trunk SB: Resist on L>R side: Overhead press stabilizing core Side bilateral Reps/Minutes 5 SH x 10 Comments Extra time to determine max tolerated resistance w/ movement Krista Trunk SB strengthening Standing Exercise Name Lateral step outs with TB held at chest/breast level - HEP Side right Equipment Used Lev 1 double TB Reps/Minutes 5 SH x 10 Comments Steps outs to R only after inspecting scolio curve increasing with exer. Self-Care/Home Management Treatment Education Other Education Discussed pt's POC and goals. Pt feels her walking goal is achievable over time, but believes her progress will be slow due to her pain. PT-OP-T Assessment and Plan Start: 03/14/22 11:17 Freq: Status: Active Protocol: Document 06/19/22 10:36 LRN (Rec: 06/19/22 12:44 LRN [id number]) Physical Therapy Assessment Goals Three Impairment Decreased ability to walk due to L hip/knee pain. Impairment Pain in L hip/knee walking downhill to mailbox and back with pain 4/10. Pt not able to walk to [facility] from home with tolerable pain. Short Term Goal (STG) Pt will be able to walk downhill to mailbox without pain and tolerable pain on return (<4/10). 05/01/22: Walks to mailbox without pain and back with pain 3-4/10. 05/08/22: Walk to mailbox and a little farther w/o pain and then back with 3/10 pain. STG Duration 05/09/22 (05/07/22: MET GOAL) [employer]in [employer] Drier Goal (LTG) Pt will be able to tolerate walking from home to [facility] with tolerable pain (<4 /10) 05/01/22: Pt not able to walk to [facility] from home. 05/08/22: Walking past mailbox and back. 06/19/22: Pt has been daily walking to mailbox and back, and down the street on flat 2x /day. Pain level is less after 2 laps, on return is 3/ 10 and takes no meds for it. LTG Duration 06/21/22 (06/19/22: Improving) Two Impairment Decreased function. Impairment LEFS score of 39, (40-59% impaired, score 32-47). Pt not able to walk on level and inclines/declines combined with tolerable pain. Short Term Goal (STG) Pt will be able to walk on level and inclines with tolerable pain. STG Duration 05/09/22 (05/08/22: MET GOAL) [employer] Drier Goal (LTG) Improve function per LEFS score > 47 (20-39% impaired, score 48-62). 05/08/22: LEFS score 48 (20-39 % impaired, score 48-62) 06/19/22: LEFS score 45 (40- 59% impaired, score 32-47) LTG Duration 06/21/22 (05/08/22: MET GOAL. 06/19/22: Worsened with weather change) One Impairment Lacks appropriate self care HEP. Short Term Goal (STG) Pt will be educated in proper nighttime and daytime (sit, stand) posture. STG Duration 03/30/22 (04/03/22: MET GOAL) [employer] Drier Goal (LTG) Pt will be independent with a self care HEP. 04/03/22: HEP reviewed: LE neural/hamstring stretch, Fig 4, Piriformis, Internal roll of hip for stretch; VMO strengthening of SLR & step ups. 04/07/22: HEP issued: Sitting hip ER/IR/LE neural stretch. 04/10/22: HEP issued: Hip AB in sidelie, BKFO in supine, & hold on Clamshell until hip AB strength is improved. 04/17/22: HEP: Standing VMO heel tap squats & IT band stretch, hip AB and sidestepping. 06/05/22: HEP issued: Shallow squats, Sitting: trunk flex, Standing: krista trunk SB strengthening (overhead press done in sitting) & side step outs w/TB. 06/19/22: HEP added: Sitting TB Trunk rot. LTG Duration 06/21/22 (06/19/22: Progressed). Progress Towards Goals Progress Towards Goals Slow Progress due to Activity Tolerance Assessment Summary Assessment Pt is making slow progress, but shows LE function is worse (per LEFS score) with worsening in weather conditions as her joint discomfort has increased. Pt walks ~1.2 miles and uses cryotherapy on her hips and knees before doing her home ex 's. The pt is motivated to improve her mobility and function. She has a hard time with recall of ex's requiring ongoing review of exercises during therapy and the pt moves slowly through exercise due to her pain. The pt will benefit from continuation of therapy to further her HEP for core strenghtening appropriate for her scoliosis and for general endurance conditioning of the LE's to improve her distance of gait for community ambulation ( walking to Center from home ). Physical Therapy Plan Frequency and Duration Frequency of Treatment 1x/Week Plan of Care Start Date 06/19/22 Plan of Care End Date 08/18/22 Therapeutic Interventions Therapeutic Interventions Home Exercise Program,Joint Mobilizations,Manual Therapy, Neuromuscular Re-education, Patient/Caregiver Education, Self-Care/Home Management,Soft Tissue Mobilization, Therapeutic Activities, Therapeutic Exercises Modalities Cold Pack/Ice Massage,Electric Stimulation,Hot Packs, Ultrasound Next Visit Focus/Plan Next Note Type Treatment Note Next Visit Plan CAUTION: Modalities of MH/Ice only due to Breast CA history . Review issued HEP: trunk rot Try gentle JMT to L hip; incline/decline assessment if needed, Progress core stability strengthening L Upper Paraspinals/R Lower Paraspinals-add rotation ( generally and for support for scoliosis). Monitor L hip pain with ability to walk to/from . Center. Manual Correct Sacral Rot as needed. POC: Improve LE endurance. Improve L>R Hip PROM. Strengthening of L LE and core /pelvic stabilization.
--- NOTE | 2022-06-19 13:10 | PT.OPPOC ---
Physical, Occupational & Speech Therapy At [facility] Current Diagnoses Unilateral primary osteoarthritis, left hip (06/19/22) Unilateral primary osteoarthritis, left knee (06/19/22) Visit Care Team Role Provider Type Lois Bowers MD Family Provider Physician Primary Care Provider Specialty: Family Practice Address: [address] [place] [address], [facility] [place], [address] Email: [email or web address] Donny Unger MD Attending Provider Non-Staff Referring Provider Specialty: Orthopedic Surgery Address: [address] [place] [address], [place], [address] Email: Plan Of Care PT-OP-T Assessment and Plan Start: 03/14/22 11:17 Freq: Status: Active Protocol: Document 06/19/22 10:36 LRN (Rec: 06/19/22 12:44 LRN [id number]) Physical Therapy Assessment Goals Three Impairment Decreased ability to walk due to L hip/knee pain. Impairment Pain in L hip/knee walking downhill to mailbox and back with pain 4/10. Pt not able to walk to [facility] from home with tolerable pain. Short Term Goal (STG) Pt will be able to walk downhill to mailbox without pain and tolerable pain on return (<4/10). 05/01/22: Walks to mailbox without pain and back with pain 3-4/10. 05/08/22: Walk to mailbox and a little farther w/o pain and then back with 3/10 pain. STG Duration 05/09/22 (05/07/22: MET GOAL) Jail Goal (LTG) Pt will be able to tolerate walking from home to the [facility] with tolerable pain (<4 /10) 05/01/22: Pt not able to walk to [facility] from home. 05/08/22: Walking past mailbox and back. 06/19/22: Pt has been daily walking to mailbox and back, and down the street on flat 2x /day. Pain level is less after 2 laps, on return is 3/ 10 and takes no meds for it. LTG Duration 06/21/22 (06/19/22: Improving) Two Impairment Decreased function. Impairment LEFS score of 39, (40-59% impaired, score 32-47). Pt not able to walk on level and inclines/declines combined with tolerable pain. Short Term Goal (STG) Pt will be able to walk on level and inclines with tolerable pain. STG Duration 05/09/22 (05/08/22: MET GOAL) Manager Culture Goal (LTG) Improve function per LEFS score > 47 (20-39% impaired, score 48-62). 05/08/22: LEFS score 48 (20-39 % impaired, score 48-62) 06/19/22: LEFS score 45 (40- 59% impaired, score 32-47) LTG Duration 06/21/22 (05/08/22: MET GOAL. 06/19/22: Worsened with weather change) One Impairment Lacks appropriate self care HEP. Short Term Goal (STG) Pt will be educated in proper nighttime and daytime (sit, stand) posture. STG Duration 03/30/22 (04/03/22: MET GOAL) Jail Goal (LTG) Pt will be independent with a self care HEP. 04/03/22: HEP reviewed: LE neural/hamstring stretch, Fig 4, Piriformis, Internal roll of hip for stretch; VMO strengthening of SLR & step ups. 04/07/22: HEP issued: Sitting hip ER/IR/LE neural stretch. 04/10/22: HEP issued: Hip AB in sidelie, BKFO in supine, & hold on Clamshell until hip AB strength is improved. 04/17/22: HEP: Standing VMO heel tap squats & IT band stretch, hip AB and sidestepping. 06/05/22: HEP issued: Shallow squats, Sitting: trunk flex, Standing: marlyn trunk SB strengthening (overhead press done in sitting) & side step outs w/TB. 06/19/22: HEP added: Sitting TB Trunk rot. LTG Duration 06/21/22 (06/19/22: Progressed). Progress Towards Goals Progress Towards Goals Slow Progress due to Activity Tolerance Assessment Summary Assessment Pt is making slow progress, but shows LE function is worse (per LEFS score) with worsening in weather conditions as her joint discomfort has increased. Pt walks ~1.2 miles and uses cryotherapy on her hips and knees before doing her home ex 's. The pt is motivated to improve her mobility and function. She has a hard time with recall of ex's requiring ongoing review of exercises during therapy and the pt moves slowly through exercise due to her pain. The pt will benefit from continuation of therapy to further her HEP for core strenghtening appropriate for her scoliosis and for general endurance conditioning of the LE's to improve her distance of gait for community ambulation ( walking to [facility] from home ). Physical Therapy Plan Frequency and Duration Frequency of Treatment 1x/Week Plan of Care Start Date 06/19/22 Plan of Care End Date 08/18/22 Therapeutic Interventions Therapeutic Interventions Home Exercise Program,Joint Mobilizations,Manual Therapy, Neuromuscular Re-education, Patient/Caregiver Education, Self-Care/Home Management,Soft Tissue Mobilization, Therapeutic Activities, Therapeutic Exercises Modalities Cold Pack/Ice Massage,Electric Stimulation,Hot Packs, Ultrasound Next Visit Focus/Plan Next Note Type Treatment Note Next Visit Plan CAUTION: Modalities of MH/Ice only due to Breast CA history . Review issued HEP: trunk rot Try gentle JMT to L hip; incline/decline assessment if needed, Progress core stability strengthening L Upper Paraspinals/R Lower Paraspinals-add rotation ( generally and for support for scoliosis). Monitor L hip pain with ability to walk to/from [facility]. Manual Correct Sacral Rot as needed. POC: Improve LE endurance. Improve L>R Hip PROM. Strengthening of L LE and core /pelvic stabilization. Plan of Care Dates Plan of Care Start Date 06/19/22 Plan of Care End Date 08/18/22 Electronically Signed by: Magali Arellano, PT 06/19/22 [id number] If you are in agreement with this Plan of Care, please return a signed and dated copy. I have reviewed this Plan of Care and certify that the skilled therapy services above are required to meet the patient?s needs. Physician Signature Date Printed Name and Credentials Clinical Instructor Signature Printed Name and Credentials
--- NOTE | 2022-06-19 13:10 | PT.OPPOC ---
Physical, Occupational & Speech Therapy At [facility] Current Diagnoses Unilateral primary osteoarthritis, left hip (06/19/22) Unilateral primary osteoarthritis, left knee (06/19/22) Visit Care Team Role Provider Type Lois Bowers MD Family Provider Physician Primary Care Provider Specialty: Family Practice Address: [address] [place] [address], [facility] [place], [address] Email: [email or web address] Donny Unger MD Attending Provider Non-Staff Referring Provider Specialty: Orthopedic Surgery Address: [address] [place] [address], [place], [address] Email: Plan Of Care PT-OP-T Assessment and Plan Start: 03/14/22 11:17 Freq: Status: Active Protocol: Document 06/19/22 10:36 LRN (Rec: 06/19/22 12:44 LRN [id number]) Physical Therapy Assessment Goals Three Impairment Decreased ability to walk due to L hip/knee pain. Impairment Pain in L hip/knee walking downhill to mailbox and back with pain 4/10. Pt not able to walk to [facility] from home with tolerable pain. Short Term Goal (STG) Pt will be able to walk downhill to mailbox without pain and tolerable pain on return (<4/10). 05/01/22: Walks to mailbox without pain and back with pain 3-4/10. 05/08/22: Walk to mailbox and a little farther w/o pain and then back with 3/10 pain. STG Duration 05/09/22 (05/07/22: MET GOAL) Fpc Goal (LTG) Pt will be able to tolerate walking from home to the [facility] with tolerable pain (<4 /10) 05/01/22: Pt not able to walk to [facility] from home. 05/08/22: Walking past mailbox and back. 06/19/22: Pt has been daily walking to mailbox and back, and down the street on flat 2x /day. Pain level is less after 2 laps, on return is 3/ 10 and takes no meds for it. LTG Duration 06/21/22 (06/19/22: Improving) Two Impairment Decreased function. Impairment LEFS score of 39, (40-59% impaired, score 32-47). Pt not able to walk on level and inclines/declines combined with tolerable pain. Short Term Goal (STG) Pt will be able to walk on level and inclines with tolerable pain. STG Duration 05/09/22 (05/08/22: MET GOAL) Insulation And Flooring Assembler Goal (LTG) Improve function per LEFS score > 47 (20-39% impaired, score 48-62). 05/08/22: LEFS score 48 (20-39 % impaired, score 48-62) 06/19/22: LEFS score 45 (40- 59% impaired, score 32-47) LTG Duration 06/21/22 (05/08/22: MET GOAL. 06/19/22: Worsened with weather change) One Impairment Lacks appropriate self care HEP. Short Term Goal (STG) Pt will be educated in proper nighttime and daytime (sit, stand) posture. STG Duration 03/30/22 (04/03/22: MET GOAL) Fpc Goal (LTG) Pt will be independent with a self care HEP. 04/03/22: HEP reviewed: LE neural/hamstring stretch, Fig 4, Piriformis, Internal roll of hip for stretch; VMO strengthening of SLR & step ups. 04/07/22: HEP issued: Sitting hip ER/IR/LE neural stretch. 04/10/22: HEP issued: Hip AB in sidelie, BKFO in supine, & hold on Clamshell until hip AB strength is improved. 04/17/22: HEP: Standing VMO heel tap squats & IT band stretch, hip AB and sidestepping. 06/05/22: HEP issued: Shallow squats, Sitting: trunk flex, Standing: marlyn trunk SB strengthening (overhead press done in sitting) & side step outs w/TB. 06/19/22: HEP added: Sitting TB Trunk rot. LTG Duration 06/21/22 (06/19/22: Progressed). Progress Towards Goals Progress Towards Goals Slow Progress due to Activity Tolerance Assessment Summary Assessment Pt is making slow progress, but shows LE function is worse (per LEFS score) with worsening in weather conditions as her joint discomfort has increased. Pt walks ~1.2 miles and uses cryotherapy on her hips and knees before doing her home ex 's. The pt is motivated to improve her mobility and function. She has a hard time with recall of ex's requiring ongoing review of exercises during therapy and the pt moves slowly through exercise due to her pain. The pt will benefit from continuation of therapy to further her HEP for core strenghtening appropriate for her scoliosis and for general endurance conditioning of the LE's to improve her distance of gait for community ambulation ( walking to [facility] from home ). Physical Therapy Plan Frequency and Duration Frequency of Treatment 1x/Week Plan of Care Start Date 06/19/22 Plan of Care End Date 08/18/22 Therapeutic Interventions Therapeutic Interventions Home Exercise Program,Joint Mobilizations,Manual Therapy, Neuromuscular Re-education, Patient/Caregiver Education, Self-Care/Home Management,Soft Tissue Mobilization, Therapeutic Activities, Therapeutic Exercises Modalities Cold Pack/Ice Massage,Electric Stimulation,Hot Packs, Ultrasound Next Visit Focus/Plan Next Note Type Treatment Note Next Visit Plan CAUTION: Modalities of MH/Ice only due to Breast CA history . Review issued HEP: trunk rot Try gentle JMT to L hip; incline/decline assessment if needed, Progress core stability strengthening L Upper Paraspinals/R Lower Paraspinals-add rotation ( generally and for support for scoliosis). Monitor L hip pain with ability to walk to/from [facility]. Manual Correct Sacral Rot as needed. POC: Improve LE endurance. Improve L>R Hip PROM. Strengthening of L LE and core /pelvic stabilization. Plan of Care Dates Plan of Care Start Date 06/19/22 Plan of Care End Date 08/18/22 Electronically Signed by: Magali Arellano, PT 06/19/22 [id number] If you are in agreement with this Plan of Care, please return a signed and dated copy. I have reviewed this Plan of Care and certify that the skilled therapy services above are required to meet the patient?s needs. Physician Signature Date Printed Name and Credentials Clinical Instructor Signature Printed Name and Credentials
--- NOTE | 2023-01-01 08:41 | PT.OPDS ---
Current Diagnoses Unilateral primary osteoarthritis, left hip (06/19/22) Unilateral primary osteoarthritis, left knee (06/19/22) Visit Care Team Role Provider Type Lois Bowers MD Family Provider Physician Primary Care Provider Specialty: Family Practice Address: [address] [place] [address], [place], [address] Email: [email or web address] Donny Unger MD Attending Provider Non-Staff Referring Provider Specialty: Orthopedic Surgery Address: [address] [place] [address] , [place], [address] Email: Visit Number Visit Number 15 Discharge Summary PT-OP-B Current Condition Start: 03/14/22 11:17 Freq: Status: Active Protocol: Document 03/23/22 13:03 LRN (Rec: 03/23/22 14:10 LRN [id number]) Current Condition History of Current Condition Onset Date Couple months ago. Current Complaints L hip and knee pain. History of Current Condition Having memory problems. Not able to use pain meds (arnica cream) due to A.Fib. In past, took a pain pill but is concerned meds can take her into A. Fib; therefore she is not taking any meds for L sided pain. Walks daily 1.5 miles but a year ago walked a lot further. Pt having to slit the L leg opening of her underwear for comfort because it feels too tight around the leg. Pt tends to sit with her R knee crossed over her L knee Prior Treatments and Tests No. X-rays by Dr. Unger indicated pain due to arthritis. Treatment Goals Patient/Caregiver Goals Pt goals: Walk downhill to mailbox without pain and tolerable pain on return (<4/10). Walk on flat and hill with tolerable pain. Walk to [facility] from home with tolerable pain. Personal Factors Other Personal Factors That May Effect Memory problems. Therapy/Recovery PT-OP-C Subjective Start: 03/14/22 11:17 Freq: Status: Active Protocol: Document 06/19/22 10:36 LRN (Rec: 06/19/22 12:44 LRN [id number]) OP-PT Subjective Patient Comments Patient Comments States the L hip and knee is bothering her. Patient Questionnaires Lower Extremity Functional Scale LEFS Score 45 LEFS Impairment 40 to 59% Impaired (Score 32- 47) PT-OP-G Mobility & Gait Start: 03/14/22 11:17 Freq: Status: Active Protocol: Document 03/23/22 13:03 LRN (Rec: 03/23/22 14:10 LRN [id number]) OP Gait Assessment Gait Gait Assistance Required: Independent Able to Maintain Weight Bearing Status Yes During Gait Assistive Devices Assistive Device Straight Cane Gait Deviations General Gait Pattern Decreased Stride Length,Flexed Trunk,Lateral Trunk Lean, Narrow Based Gait Factors Limiting Gait Function Factors Limiting Gait Function Decreased Activity Tolerance, Decreased Strength,Pain,Poor Balance Comments Gait Comments Straight cane is actually a straight walking stick on the R side. Pt leans to R with gait. With cane the steps lengths are short but equal. Without cane pt take longer step with LLE. PT-OP-H Neuro Start: 03/14/22 11:17 Freq: Status: Active Protocol: Document 03/31/22 10:20 LRN (Rec: 03/31/22 11:35 LRN [id number]) Deep Tendon Reflex & Clonus Assessment Deep Tendon Reflex Right Achilles Deep Tendon Reflex 0 Absent Left Achilles Deep Tendon Reflex 0 Absent PT-OP-J Posture/Palpation/Skin Start: 03/14/22 11:17 Freq: Status: Active Protocol: Document 03/23/22 13:03 LRN (Rec: 03/23/22 14:10 LRN [id number]) Posture Evaluation Position Standing Head/C-Spine Posture Forward Head Shoulder Posture (L) Elevated Knee Posture (L) Excess Flexion Comments Posture Comments Trunk shift to R. R shoulder is low, sacrum is R sidebent and spine appears to be in mild C-curve with apex on the left. L knee slightly bent. Pt feels her L leg is long. Palpation Assessment Location L knee Palpation Location No area of tenderness in sitting. L hip Palpation Location ASIS's Palpation Details L ASIS is more anterior in supine. Supine>Longsit: L leg becomes slightly longer. PSIS is posterior. PT-OP-K Range of Motion Start: 03/14/22 11:17 Freq: Status: Active Protocol: Document 05/01/22 10:31 LRN (Rec: 05/01/22 11:32 LRN [id number]) Hip Goniometric Range of Motion Hip Right Passive Testing Position Supine Internal Rotation 22 External Rotation 30 Left Passive Testing Position Supine Internal Rotation 10 External Rotation 15 PT-OP-M Strength Start: 03/14/22 11:17 Freq: Status: Active Protocol: Document 04/10/22 10:33 LRN (Rec: 04/10/22 11:18 LRN [id number]) Hip Strength Hip Manual Muscle Testing Right Flexion (L2) 3+ Fair+ Comments Pt not able to tolerate lying on L hip; therefore not able to formally assess hip AB. Left Flexion (L2) 3 Fair Abduction 3- Fair- Comments Able to lift leg to neurtral. PT-OP-T Assessment and Plan Start: 03/14/22 11:17 Freq: Status: Active Protocol: Document 01/01/23 08:35 LRN (Rec: 01/01/23 08:41 LRN [id number]) Physical Therapy Assessment Goals Three Impairment Decreased ability to walk due to L hip/knee pain. Impairment Pain in L hip/knee walking downhill to mailbox and back with pain 4/10. Pt not able to walk to [facility] from home with tolerable pain. Short Term Goal (STG) Pt will be able to walk downhill to mailbox without pain and tolerable pain on return (<4/10). 05/01/22: Walks to mailbox without pain and back with pain 3-4/10. 05/08/22: Walk to mailbox and a little farther w/o pain and then back with 3/10 pain. STG Duration 05/09/22 (05/07/22: MET GOAL) Penitentiary Goal (LTG) Pt will be able to tolerate walking from home to the [facility] with tolerable pain (<4 /10) 05/01/22: Pt not able to walk to [facility] from home. 05/08/22: Walking past mailbox and back. 06/19/22: Pt has been daily walking to mailbox and back, and down the street on flat 2x /day. Pain level is less after 2 laps, on return is 3/ 10 and takes no meds for it. LTG Duration 06/21/22 (06/19/22: Improved , NOT MET GOAL) Two Impairment Decreased function. Impairment LEFS score of 39, (40-59% impaired, score 32-47). Pt not able to walk on level and inclines/declines combined with tolerable pain. Short Term Goal (STG) Pt will be able to walk on level and inclines with tolerable pain. STG Duration 05/09/22 (05/08/22: MET GOAL) Reel Film Inspector Goal (LTG) Improve function per LEFS score > 47 (20-39% impaired, score 48-62). 05/08/22: LEFS score 48 (20-39 % impaired, score 48-62) 06/19/22: LEFS score 45 (40- 59% impaired, score 32-47) LTG Duration 06/21/22 (05/08/22: MET GOAL. 06/19/22: Worsened with weather change) One Impairment Lacks appropriate self care HEP. Short Term Goal (STG) Pt will be educated in proper nighttime and daytime (sit, stand) posture. STG Duration 03/30/22 (04/03/22: MET GOAL) Reel Film Inspector Goal (LTG) Pt will be independent with a self care HEP. 04/03/22: HEP reviewed: LE neural/hamstring stretch, Fig 4, Piriformis, Internal roll of hip for stretch; VMO strengthening of SLR & step ups. 04/07/22: HEP issued: Sitting hip ER/IR/LE neural stretch. 04/10/22: HEP issued: Hip AB in sidelie, BKFO in supine, & hold on Clamshell until hip AB strength is improved. 04/17/22: HEP: Standing VMO heel tap squats & IT band stretch, hip AB and sidestepping. 06/05/22: HEP issued: Shallow squats, Sitting: trunk flex, Standing: marlyn trunk SB strengthening (overhead press done in sitting) & side step outs w/TB. 06/19/22: HEP added: Sitting TB Trunk rot. LTG Duration 06/21/22 (06/19/22: MET GOAL for condition at time of DC). Assessment Summary Assessment Late entry: Pt had called 08/11 with message left cancelling all remaining visits and requesting discharge, stating she had a lot of exercises and didn't feel she needed to continue therapy. The pt was last seen for therapy on 06/19/22 with progress as noted on the last progress note. The pt is being discharged per pt request. Physical Therapy Plan Discharge Physical Therapy Discharge Reasons Patient Request Discharge Comments Thank you for your referral.
== END 2023-01-05 14:39 | disposition home or self-care (01) ==
LOC: PHYS 10:30
PROVIDERS: Family Provider Family Medicine; PCP Family Medicine; Referring Provider Orthopaedic Surgery; Visit Provider Orthopaedic Surgery
DX: M17.12 Unilateral primary osteoarthritis, left knee (principal); M16.12 Unilateral primary osteoarthritis, left hip
CPT/HCPCS: 97110; 97116; 97162; 97535

== ENCOUNTER → 2023-03-01 07:23 | Outpatient (CLI) | payer MEDICARE, SELFPAY ==
--- NOTE | 2023-03-01 | DI.MG.S_ITS ---
BILATERAL DIGITAL SCREENING MAMMOGRAM 3D/2D WITH CAD: 03/01/2023 CLINICAL: Routine screening. Comparison is made to exams dated: 12/29/2021 mammogram, 12/27/2020 mammogram, and 12/22/2018 mammogram - [facility]. There are scattered areas of fibroglandular density in both breasts (category b / 25%-50% glandular tissue). Current study was also evaluated with a Computer Aided Detection (CAD) system. No significant masses, calcifications, or other findings are seen in either breast. There has been no significant interval change. IMPRESSION: NEGATIVE There is no mammographic evidence of malignancy. A 1 year screening mammogram is recommended. Based on the Tyrer Cuzick model (a risk assessment model) the patient's lifetime risk is 2.5% and her 10 year risk is 0.0%. According to the ACR, ACS, and NCCN guidelines, an annual breast MRI exam along with mammogram is recommended if the patient's lifetime risk is 20% or greater. This exam was interpreted at Station ID: [id number]. NOTE: For mammograms, a report in lay terms will be sent to the patient. Approximately 15% of breast malignancies will not be visualized mammographically. In the management of a palpable breast mass, a negative mammogram must not discourage biopsy of a clinically suspicious lesion. Electronically Signed By: Abdulkadir kauffman/aurelio:03/01/2023 08:19:57 letter sent: Normal Exam ACR BI-RADS Category 1: Negative 3341F
== END ==
PROVIDERS: Family Provider Family Medicine; PCP Family Medicine; Referring Provider Family Medicine; Visit Provider Family Medicine
DX: Z12.31 Encounter for screening mammogram for malignant neoplasm of breast (principal)
CPT/HCPCS: 77063; 77067

== ENCOUNTER → 2023-06-10 08:44 | Outpatient (CLI) | payer MEDICARE, SELFPAY ==
--- NOTE | 2023-06-10 08:47 | DI.MRI.S_ITS ---
PROCEDURE: MR HEAD/BRAIN WO CON INDICATIONS: TIA TECHNIQUE: Non-contrast axial T1 spin echo, axial T2 fast spin echo, sagittal and axial FLAIR, coronal T2 fast spin echo, axial gradient echo, axial diffusion and ADC through the brain. COMPARISON: None. FINDINGS: Image quality: Excellent. CSF spaces: There is narrowing of the left lateral ventricle. The basal cisterns remain patent, although they are narrowed. Basal cisterns are patent. No extra-axial fluid collections. Brain: There is a left-sided mass seen, which is believed to be extra-axial, centered along the left sylvian fissure, with maximum axial dimensions 5 by 4.9 cm, with a craniocaudal extent 6.8 cm. This mass demonstrates relatively low signal on T2 weighted imaging. Mass effect is seen, with midline shift up to 9 mm. No intracranial bleeds. There is cerebral volume loss for age. There are periventricular and deep white matter chronic small vessel ischemic changes. Brainstem appears normal. Diffusion-weighted images show no acute ischemic insults. No chronic ischemic insults. Normal intravascular flow voids are present. Skull and face: Calvarial bone marrow is normal in signal. Orbits are normal. Note is made of bilateral lens replacements. Sinuses: There is [id number] left mastoid air cell fluid. No significant paranasal sinus disease is seen. IMPRESSION: No findings of acute or subacute infarction can be seen. 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 Mass effect is seen, with narrowing of the left lateral ventricle and midline shift of 9 mm. Urgent neurosurgical consultation is recommended. A follow-up study with IV contrast may also be helpful. Note: Findings and recommendations discussed by telephone with is Dr. Bowers at 10:20 a.m. [facility] on June 10, 2023. Dictated by: Jos Hodgson M.D. on 06/10/2023 at 9:14 Approved by: Jos Hodgson M.D. on 06/10/2023 at 9:21
== END ==
PROVIDERS: Family Provider Family Medicine; PCP Family Medicine; Referring Provider Family Medicine; Visit Provider Family Medicine
DX: G45.9 Transient cerebral ischemic attack, unspecified (principal); G93.9 Disorder of brain, unspecified
CPT/HCPCS: 70551

== ENCOUNTER → 2023-09-01 07:01 | Outpatient (CLI) | payer MEDICARE, SELFPAY ==
--- NOTE | 2023-09-01 | DI.ECHO.S_ITS ---
[facility] +---------+ : : [address] : : : : [id number] : : : : Phone: [phone]+ Echocardiogram Report + + :Name: LAMONT NESBITT Study Date: 09/01/2023 Height: 68 in : :[facility] ReadingLocation: Weight: 136 lb : : Gender: Female BSA: 1.7 m2 : :: 1945 Age: 78 yrs BP: 144/83 mmHg: :Reason For Study: ATRIAL FIBRILLATION : :Ordering Physician: VICTOR M, : :CONI Performed By: Echo Bush : :Referring: CONI DOW : + + Interpretation Summary The ejection fraction is estimated to be 50-55%. Diastolic parameters suggest probable normal left ventricular diastolic function and normal filling pressures. The right ventricle is mildly dilated. The right ventricular systolic function is normal. There is mild mitral regurgitation. There is mild tricuspid regurgitation. The right ventricular systolic pressure is estimated to be at least 29 mmHg based on an estimated right atrial pressure of 8 mm Hg. Compared to the prior study dated 07/20/2018, no significant change. Procedure: A two-dimensional transthoracic echocardiogram with color flow and Doppler was performed. The study quality was technically adequate. Comparison is made with the echocardiogram of 07/20/2018. The patient was in sinus rhythm with heart rates between 60-70 bpm during the exam. Left Ventricle: The left ventricle is normal in size and wall thickness. The ejection fraction is estimated to be 50-55%. Diastolic parameters suggest probable normal left ventricular diastolic function and normal filling pressures. Right Ventricle: The right ventricle is mildly dilated. The right ventricular systolic function is normal. Atria: The left atrial size is normal. Right atrial size is normal. There is no Doppler evidence for an interatrial shunt. Mitral Valve: The mitral valve is normal. There is mild mitral regurgitation. Aortic Valve: The aortic valve is trileaflet. The aortic valve opens well. There is no aortic valve stenosis. No aortic regurgitation is present. Tricuspid Valve: The tricuspid valve is normal in structure and function. There is mild tricuspid regurgitation. The right ventricular systolic pressure is estimated to be at least 29 mmHg based on an estimated right atrial pressure of 8 mm Hg. Pulmonic Valve: The pulmonic valve leaflets are thin and pliable; valve motion is normal. There is trace pulmonic regurgitation. Great Vessels: The aortic root is normal size. The dimensions of the ascending aorta are normal. The IVC is dilated (diameter is greater than 2.1 cm) yet it collapses greater than 50% with a sniff. This suggests a right atrial pressure of 8 mm Hg. Pericardium/ Pleura There is no pericardial effusion. There is no pleural effusion. MMode/2D Measurements & Calculations LVIDd: 4.7 cm LVOT diam: 2.1 cm LVIDs: 3.4 cm Ao root diam: 3.2 cm FS: 26.6 % asc Aorta Diam: 3.3 cm IVSd: 0.92 cm Ao Arch Diam (Prox Trans): 2.6 cm LVPWd: 0.86 cm LV tobar. diameter/BSA (cm/m^2): 2.7 LV sys. diameter/BSA (cm/m^2): 2.0 LA A2 area: 18.5 cm2 RA long axis: 4.4 cm LA A4 area: 15.0 cm2 RA area: 13.1 cm2 LA length (vol): 4.9 cm RA vol: 33.5 ml LA vol: 47.7 ml RA : 19.3 ml/m2 LA vol index: 27.5 ml/m2 IVC diam: 2.2 cm RVD1 (basal): 3.7 cm TAPSE: 1.8 cm Doppler Measurements & Calculations Ao V2 max: 132.0 cm/sec LVOT Max Ihsan: 88.3 cm/sec Ao V2 mean: 100.3 cm/sec LV V1 max P.1 mmHg Ao max P.0 mmHg LV V1 VTI: 21.5 cm Ao mean P.3 mmHg CONNIE(I,D): 2.1 cm2 Ao V2 VTI: 33.6 cm CONNIE(V,D): 2.2 cm2 sev ratio: 0.64 CONNIE indexed to BSA (cm^2/m^2): 1.2 MV E max ihsan: 77.5 cm/sec TR max ihsan: 230.5 cm/sec MV A max ihsan: 70.6 cm/sec TR max P.2 mmHg MV E/A: 1.1 PA V2 max: 83.3 cm/sec Med Peak E' Ihsan: 7.9 cm/sec PA V2 mean: 64.5 cm/sec E/E' med: 9.8 PA mean P.8 mmHg Lat Peak E' Ihsan: 9.7 cm/sec PA pr(Accel): 37.9 mmHg E/E' lat: 8.0 E/e' average: 8.9 MV dec time: 0.23 sec [facility]): 72.2 ml Reading Physician:04:30 PM
== END ==
LOC: ECHO 07:02
PROVIDERS: Family Provider Family Medicine; PCP Family Medicine; Referring Provider Family Medicine; Visit Provider Family Medicine
DX: I08.1 Rheumatic disorders of both mitral and tricuspid valves (principal); I48.0 Paroxysmal atrial fibrillation; I47.10 Supraventricular tachycardia, unspecified; I47.20 Ventricular tachycardia, unspecified
CPT/HCPCS: 93306

== ENCOUNTER → 2023-11-01 08:39 | Outpatient (CLI) | payer MEDICARE, SELFPAY ==
--- NOTE | 2023-11-01 09:31 | DI.MRI.S_ITS ---
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 COMPARISON: [facility], CR, XR LUMBAR SPINE 2-3V, 12/18/2021, 10:27. [facility] [place], CR, XR LUMBAR SPINE 2 OR 3 VIEWS, 10/25/2023, 9:34. FINDINGS: Image quality: Excellent. Alignment and Curvature: 5 lumbar type vertebral bodies are present by plain film. Moderate rightward curvature of the upper lumbar spine. Loss of normal lumbar lordosis. 3 mm of retrolisthesis of L2 on L3. 2 mm of retrolisthesis of L4 on L5. Bone Marrow: Marrow is of normal overall signal. No acute vertebral body compression fractures. Mild reactive signal throughout the endplates of the lumbar and lower thoracic spine. Spinal Cord: Conus medullaris terminates at the lower L1 level. Visualized cord demonstrates normal signal and size. Paraspinous Soft Tissues: No paravertebral masses. T12-L1: Mild disc desiccation. No significant canal or foraminal stenosis. L1-L2: Moderate disc height loss and desiccation. Mild diffuse disc bulge. Mild facet hypertrophy and ligamentum flavum hypertrophy. Mild canal stenosis. Mild bilateral foraminal stenosis. L2-L3: Moderate disc height loss and desiccation. Mild diffuse disc bulge. Mild facet and ligamentum flavum hypertrophy. Mild canal stenosis. Mild right and moderate left foraminal stenosis. L3-L4: Mild disc desiccation and diffuse disc bulge. Mild facet and ligamentum flavum hypertrophy. Mild canal stenosis. Moderate bilateral foraminal stenosis. L4-L5: Mild disc desiccation and diffuse disc bulge. Moderate bilateral facet hypertrophy. Moderate canal stenosis. Mild bilateral foraminal stenosis. L5-S1: Moderate disc height loss. Mild disc desiccation and diffuse disc bulge with superimposed broad-based right posterolateral protrusion. Mild bilateral facet hypertrophy. Mild canal stenosis. Moderate to severe right and mild left foraminal stenosis. Mild right L5 nerve root compression. IMPRESSION: 1. Multilevel degenerative disc and facet disease, as well as ligamentum flavum hypertrophy and epidural lipomatosis. 2. Multilevel canal stenoses, worst at L4-L5 where there is moderate canal stenosis. 3. Multilevel foraminal stenoses, worst at L5-S1 where there is associated intraforaminal nerve root compression. Recommend correlation with clinical symptoms to ascertain relevance of this finding. Dictated by: Sasha Danielle M.D. on 11/01/2023 at 12:22 Approved by: Sasha Danielle M.D. on 11/01/2023 at 12:35
== END ==
PROVIDERS: Family Provider Family Medicine; PCP Family Medicine; Referring Provider Physical Medicine & Rehabilitation Pain Medicine; Visit Provider Physical Medicine & Rehabilitation Pain Medicine
DX: M48.062 Spinal stenosis, lumbar region with neurogenic claudication (principal); M48.07 Spinal stenosis, lumbosacral region; M51.36 Other intervertebral disc degeneration, lumbar region; M51.37 Other intervertebral disc degeneration, lumbosacral region; M47.816 Spondylosis without myelopathy or radiculopathy, lumbar region; M47.817 Spondylosis without myelopathy or radiculopathy, lumbosacral region
CPT/HCPCS: 72148

== ENCOUNTER → 2024-04-14 10:59 | Outpatient (CLI) | payer MEDICARE, SELFPAY ==
--- NOTE | 2024-04-14 11:00 | DI.MG.S_ITS ---
BILATERAL DIGITAL SCREENING MAMMOGRAM 3D/2D WITH CAD: 04/14/2024 CLINICAL: Routine screening. Comparison is made to exams dated: 03/01/2023 mammogram, 12/29/2021 mammogram, and 12/27/2020 mammogram - [facility]. There are scattered areas of fibroglandular density in both breasts (category b / 25%-50% glandular tissue). Current study was also evaluated with a Computer Aided Detection (CAD) system. No significant masses, calcifications, or other findings are seen in either breast. There has been no significant interval change. IMPRESSION: NEGATIVE There is no mammographic evidence of malignancy. A 1 year screening mammogram is recommended. Based on the Tyrer Cuzick model (a risk assessment model) the patient's lifetime risk is 2.2% and her 10 year risk is 0.0%. According to the ACR, ACS, and NCCN guidelines, an annual breast MRI exam along with mammogram is recommended if the patient's lifetime risk is 20% or greater. This exam was interpreted at Station ID: [id number]. NOTE: For mammograms, a report in lay terms will be sent to the patient. Approximately 15% of breast malignancies will not be visualized mammographically. In the management of a palpable breast mass, a negative mammogram must not discourage biopsy of a clinically suspicious lesion. Electronically Signed By: Home zurita/aurelio:04/14/2024 16:50:06 letter sent: Normal Exam ACR BI-RADS Category 1: Negative 3341F
== END ==
PROVIDERS: Family Provider Family Medicine; PCP Family Medicine; Referring Provider Family Medicine; Visit Provider Family Medicine
DX: Z12.31 Encounter for screening mammogram for malignant neoplasm of breast (principal)
CPT/HCPCS: 77063; 77067

== ENCOUNTER → 2024-08-27 13:04 | Outpatient (CLI) | payer MEDICARE, SELFPAY ==
--- NOTE | 2024-08-27 13:06 | DI.MRI.S_ITS ---
PROCEDURE: MR HEAD/BRAIN WO/W CON INDICATIONS: Homonymous bilateral field defects TECHNIQUE: Noncontrast axial T1 spin echo, axial T2 fast spin echo, sagittal and axial FLAIR, coronal T2 fast spin echo, axial gradient echo, axial diffusion and ADC through the brain. After the administration of contrast, axial and coronal and sagittal T1 spin echo with fat saturation through the brain. COMPARISON: None. FINDINGS: Image quality: Excellent. CSF spaces: Basal cisterns are patent. No extra-axial fluid collections. Ventricles are stable, with narrowing of the left ventricle. Brain: An extra-axial mass is again seen, centered inferior to the left temporal lobe, along the sphenoid ridge. This measures 6 x 2 x 5.5 cm in greatest axial dimension, with a craniocaudal extent of 7.5 cm. On the prior study, this measured 5 x 4.9 x 6.8 cm. There is associated mass effect seen, with 1 cm midline shift. Significant mass effect can be seen upon the left temporal lobe and the left frontal lobe. There is prominent internal enhancement, which is moderately heterogeneous. A similar appearing mass can be seen on the right-side, along the medial aspect of the right temporal lobe, measuring 1.5 x 1 x 1.6 cm. There is cerebral volume loss for age. There is periventricular white matter chronic small vessel ischemic change. The brainstem appears normal. Diffusion-weighted images demonstrate no acute infarct. No chronic ischemic insults. Normal intravascular flow voids are present. Skull and face: Calvarial marrow is normal in signal. Orbits appear normal. Sinuses: Sinuses and mastoids appear clear. IMPRESSION: 7.5 cm meningioma seen on the left, with associated mass effect. There is now 1 cm midline shift. There is a smaller right-sided meningioma now identified measuring up to 1.6 cm. Dictated by: Jos Hodgson M.D. on 08/28/2024 at 10:07 Approved by: Jos Hodgson M.D. on 08/28/2024 at 10:12
== END ==
PROVIDERS: Family Provider Family Medicine; PCP Family Medicine; Referring Provider Ophthalmology; Visit Provider Ophthalmology
DX: D32.0 Benign neoplasm of cerebral meninges (principal); H53.461 Homonymous bilateral field defects, right side
CPT/HCPCS: 70553; A9579